=== PATIENT | female | born 1930 | race Caucasian/White ===

== ENCOUNTER → 2016-07-10 | Outpatient (CLI) | payer BC ==
[~2016-07-10] MED LIST: ASCO500T16 PO; CALCTAB5 PO; CHOL1CAP57 PO; GOUT MED; LISI40TA PO; LSN40 PO; OMEGCAP2 PO
== END | disposition home or self-care (01) ==
LOC: C.PAPS 14:36
PROVIDERS: ATTEND Obstetrics & Gynecology
DX: Z12.4 Encounter for screening for malignant neoplasm of cervix (principal); R19.00 Intra-abdominal and pelvic swelling, mass and lump, unspecified site; Z85.43 Personal history of malignant neoplasm of ovary

== ENCOUNTER → 2016-07-10 | Outpatient (CLI) | payer BC | END | disposition home or self-care (01) | LOC: C.LAB1850 12:10 | PROVIDERS: ATTEND Obstetrics & Gynecology | DX: Z12.4 Encounter for screening for malignant neoplasm of cervix (principal); R19.00 Intra-abdominal and pelvic swelling, mass and lump, unspecified site ==

== ENCOUNTER → 2016-07-18 | Outpatient (CLI) | payer BC ==
--- NOTE | 2016-07-18 14:01 | DIAGNOSTIC IMAGING REPORT ---
PELVIC ULTRASOUND, TRANSABDOMINAL HISTORY: R19.00 Pelvic mass in femaleh/o ovarian cancer new pelvic mass, september COMPARISON: Abdomen and pelvis CT 12/06/2012. FINDINGS: Transabdominal scanning demonstrates a large solid and cystic pelvic mass. This measures approximately 18 x 12 x 10 cm. No significant fluid identified within the pelvis. IMPRESSION: An 18 x 12 x 10 cm solid and cystic mass within the pelvis. This is highly suspicious for recurrent ovarian malignancy. Dedicated CT can be performed for further evaluation. Electronically signed by: Rojas Walker M.D. 07/18/2016 1:59 PM Dictated Date/Time: 07/18/2016 1:57 PM
== END | disposition home or self-care (01) ==
LOC: C.ULTRBC 13:02
PROVIDERS: ATTEND Obstetrics & Gynecology
DX: R19.00 Intra-abdominal and pelvic swelling, mass and lump, unspecified site (principal)

== ENCOUNTER → 2016-08-03 | Outpatient (CLI) | payer BC ==
[2016-08-03 14:25] LABS: BLOOD UREA NITROGEN 19 mg/dl (7-18); CREATININE 0.99 mg/dl (0.60-1.20)
== END ==
LOC: C.LAB 13:45
PROVIDERS: ATTEND Obstetrics & Gynecology
DX: R19.00 Intra-abdominal and pelvic swelling, mass and lump, unspecified site (principal)

== ENCOUNTER → 2016-08-04 | Outpatient (CLI) | payer BC ==
[~2016-08-04] MED LIST changes: +OPTIRAY 320 IV PRN
--- NOTE | 2016-08-04 07:31 | DIAGNOSTIC IMAGING REPORT ---
ABDOMEN AND PELVIS CT WITH IV AND ORAL CONTRAST CT DOSE: 960.09 mGy.cm HISTORY: Mass ABD/PELVIC MASS SWELLING TECHNIQUE: Multiaxial CT images of the abdomen and pelvis were performed following the use of intravenous and oral contrast. COMPARISON STUDY: 12/06/2012 FINDINGS: Lung bases show minimal dependent platelike basilar atelectatic change. Mild cirrhotic appearance to the liver is again noted. Gallstone within the gallbladder neck is unchanged. Spleen is uniform. Moderate cortical scarring of the kidneys is present was several small subcentimeter cortical cysts. There is no evidence for renal hydronephrosis. Septated cystic lesion mid pancreatic body is present. This measures 2 cm overall maximum dimension. No dilatation of pancreatic duct. Multi locular pelvic mass. There are 3 medially adjacent components. The right lateral component shows no internal partially cystic matrix. Has a maximum dimension of 8.9 cm. Central component within the low pelvic region has a maximum dimension of 8.5 cm. A left lateral component measures 9.1 x 6.0 cm. An ovarian neoplastic and metastatic process must be considered. There is no evidence for bowel obstructive change. There is no free fluid within the pelvic cul-de-sac. Bladder is midline. IMPRESSION: 1. Multicystic complex lesions of the pelvis and at least 3 independent dominant cystic nodules. 2. Ovarian cystic neoplastic process and/or metastatic process must be the diagnosis of exclusion. 3. Gallstone within the gallbladder neck unchanged. 4. Mild cirrhotic changes of the liver. 5. Fixed hiatal/hernia Electronically signed by: Eugene Castellon M.D. 08/04/2016 7:29 AM Dictated Date/Time: 08/04/2016 7:14 AM
--- NOTE | 2016-08-04 07:34 | DIAGNOSTIC IMAGING REPORT ---
CT SCAN OF THE CHEST WITH IV CONTRAST CLINICAL HISTORY: Pelvic mass. Metastatic survey. COMPARISON STUDY: Chest x-ray dated 06/28/2015. TECHNIQUE: Following the IV administration of 92 cc of Optiray 320, CT scan of the thorax was performed from the thoracic inlet to the upper abdomen. Images are reviewed in the axial, sagittal, and coronal planes. IV contrast was administered without complication. FINDINGS: Thyroid: Imaged portions of the thyroid gland are normal in size and attenuation. Thoracic aorta: The thoracic aorta is normal in caliber and demonstrates standard 3-vessel arch anatomy. No dissection is seen. Pulmonary vasculature: The pulmonary trunk is normal in caliber. There are no filling defects identified in the central pulmonary vessels to indicate pulmonary embolus. Note that this examination was not protocoled for evaluation of the pulmonary arteries. Heart: The heart is normal in size and configuration, and without pericardial effusion. There are coronary artery calcifications. Lungs and pleural spaces: A fat-containing Bochdalek hernia is noted at the left lung base. There is no airspace consolidation or pleural effusion. Linear atelectasis versus scarring is noted at both lung bases. The trachea and central airways are clear. Mediastinum: There is no mediastinal lymphadenopathy. There is ill-defined mediastinal soft tissue thickening, greatest in the AP window. This is also seen around the origin of the innominate artery. Gina: Clear. Axillae: There is no axillary lymphadenopathy. Upper abdomen: There is a large hiatal hernia, with the majority of the stomach located in the thoracic cavity. There are at least 4 ovoid small cystic lesions identified in the visualized pancreas measuring up to 1.7 cm. These are typical in appearance for small sidebranch IPMN's. Subcentimeter hypodensities in the upper pole of left kidney likely represent cysts but are too small for definitive characterization. A large calcified gallstone is partially imaged. Skeletal structures: The skeletal structures are osteopenic. Degenerative change is noted throughout the thoracic spine and in the shoulders. No lytic or blastic bony lesions are seen. IMPRESSION: 1. There is no evidence of intrathoracic metastatic disease. 2. No airspace consolidation or pleural effusion is identified. 3. Large hiatal hernia. 4. There is no mediastinal lymphadenopathy. Ill-defined soft tissue within the mediastinum is nonspecific and may represent mediastinal fibrosis. 5. Cholelithiasis. 6. Numerous ovoid cystic lesions in the partially imaged pancreas are typical in appearance for sidebranch IPMN's. 7. Additional changes as above. Electronically signed by: Haile Faye M.D. 08/04/2016 7:32 AM Dictated Date/Time: 08/04/2016 7:24 AM
== END | disposition home or self-care (01) ==
LOC: C.CTS 06:24
PROVIDERS: ATTEND Obstetrics & Gynecology
DX: R19.00 Intra-abdominal and pelvic swelling, mass and lump, unspecified site (principal); R93.5 Abnormal findings on diagnostic imaging of other abdominal regions, including retroperitoneum; K80.20 Calculus of gallbladder without cholecystitis without obstruction; K44.9 Diaphragmatic hernia without obstruction or gangrene

== ENCOUNTER → 2017-04-02 | Outpatient (CLI) | payer BC ==
[~2017-04-02] MED LIST changes: -GOUT MED; -LSN40 PO
--- NOTE | 2017-04-02 12:51 | DIAGNOSTIC IMAGING REPORT ---
ABD/PELVIS IV AND ORAL CONT CT DOSE: 1023.74 mGy.cm HISTORY: Ovarian carcinoma TECHNIQUE: Multiaxial CT images of the abdomen and pelvis were performed following the use of intravenous and oral contrast. A dose lowering technique was utilized adhering to the principles of ALARA. COMPARISON STUDY: 08/04/2016 FINDINGS: Scattered bibasilar atelectatic change. Fixed lateral hernia. Interval development of a small amount of upper abdominal ascites surrounding both liver as well as spleen. Trace amount of ascites within the mid mesentery. Gallstone within the gallbladder neck similar compared to the prior study. Small right renal cyst. Mild cortical scarring of the kidneys bilaterally. No evidence for hydronephrosis. Mild cirrhotic changes of the liver are stable. Trace amount of ascites within the paracolic gutters bilaterally. Moderate pelvic ascites increased from the prior study. 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 The complex lesions within the low soft tissue pelvis are moderately improved in volume. There is a bilobed mass of the posterior central pelvis having a maximum dimension of 8.6 cm. To lower central pelvis contains a 8.5 cm complex partially solid lesion similar in size to the prior study. The solid component, however has increased. A left lateral cystic component appears to have resolved. Bladder is midline. Bowel pattern is nonobstructive. IMPRESSION: 1. Mixed findings compared to the prior study. 2. Slight improvement in the complex partially cystic lesions of the soft tissue pelvis with a mild decrease in overall volume of the 3 lesions described previously. 3. Interval development of mild abdominal and pelvic ascites. 4. 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 5. Stable findings of early hepatic cirrhosis. 6. Gallstone 7. Fixed hiatal Hernia unchanged The above report was generated using voice recognition software. It may contain grammatical, syntax or spelling errors. Electronically signed by: Eugene Castellon M.D. 04/02/2017 12:50 PM Dictated Date/Time: 04/02/2017 12:42 PM
--- NOTE | 2017-04-02 13:23 | DIAGNOSTIC IMAGING REPORT ---
CHEST CT WITH CONTRAST CT DOSE: HISTORY: Ovarian cancer. TECHNIQUE: Multiaxial CT images of the chest were performed following the intravenous administration of contrast. A dose lowering technique was utilized adhering to the principles of ALARA. COMPARISON: Chest CT 08/04/2016. FINDINGS: Interval development of a small amount of upper abdominal ascites. There appears to be subtle omental nodularity within the left upper quadrant. Therefore, this is consistent with peritoneal carcinomatosis. Large hiatus hernia is again noted. No suspicious pulmonary nodules. No pleural effusions. No pneumothorax. The central airways are patent. A few linear densities within the lung bases likely represent atelectasis or scarring. Stable nonspecific mediastinal soft tissue thickening most pronounced at the AP window. No hilar lymphadenopathy. The central pulmonary arteries are patent. Normal caliber thoracic aorta. The heart is normal in size. No suspicious lytic or blastic osseous lesions. Pancreatic cystic lesions are again noted. Cholelithiasis. IMPRESSION: 1. Interval development of a small amount of upper abdominal ascites with a few subtle areas of soft tissue nodularity within the omentum. Therefore, this is highly suspicious for peritoneal carcinomatosis. 2. No change in the soft tissue thickening within the mediastinum. This could represent mediastinal fibrosis given the stability. 3. No definite evidence for metastatic disease within the chest. 4. Large hiatal hernia. Electronically signed by: Rojas Walker M.D. 04/02/2017 1:21 PM Dictated Date/Time: 04/02/2017 1:09 PM
== END | disposition home or self-care (01) ==
LOC: C.CTS 11:18
PROVIDERS: ATTEND Internal Medicine Hematology & Oncology
DX: C56.1 Malignant neoplasm of right ovary (principal); R18.8 Other ascites; K74.60 Unspecified cirrhosis of liver; K80.20 Calculus of gallbladder without cholecystitis without obstruction

== ENCOUNTER → 2017-04-17 | Outpatient (CLI) | payer BC ==
[~2017-04-17] MED LIST changes: +CALC600T9 PO; -CALCTAB5 PO; +COLC0.6T54 PO; +HYDR-5688 PO; -OPTIRAY 320 IV PRN
[2017-04-17 10:45] LABS: BASO % 0.3 %; BASO ABS # 0.02 K/uL (0-0.2); COMPLETE YES; HEMATOCRIT 34.4 % (37-47); IG% 0.3 %; LYMPH % 29.3 %; LYMPH ABS # 1.79 K/uL (1.2-3.4); MEAN CELL VOLUME 103.6 fL (80-100); MEAN CORPUSCULAR HGB CONC 32.8 g/dl (32-36); MEAN PLATELET VOLUME 9.4 fL (7.4-10.4); MONO % 6.1 %; PLATELET COUNT 132 K/uL (130-400); RED BLOOD COUNT 3.32 M/uL (4.2-5.4)
[2017-04-17 11:13] LABS: ALT/SGPT 18 U/L (12-78); AST/SGOT 14 U/L (15-37); BLOOD UREA NITROGEN 26 mg/dl (7-18); BUN/CREATININE RATIO 29.8 (10-20); CALCIUM 9.8 mg/dl (8.5-10.1); CARBON DIOXIDE 29 mmol/L (21-32); CHLORIDE 103 mmol/L (98-107); CREATININE 0.87 mg/dl (0.60-1.20); GLUCOSE 160 mg/dl (70-99); POTASSIUM 3.8 mmol/L (3.5-5.1); SODIUM 137 mmol/L (136-145)
[2017-04-17 11:15] LABS: ALB/GLOB RATIO 0.9 (0.9-2); ALKALINE PHOSPHATASE 65 U/L (45-117)
== END | disposition home or self-care (01) ==
LOC: C.LAB 10:24
PROVIDERS: ATTEND Internal Medicine Hematology & Oncology
DX: C56.1 Malignant neoplasm of right ovary (principal)

== ENCOUNTER 2017-04-20 05:26 | Day surgery (SDC) | payer BC ==
[2017-04-15 10:36] VITALS: BMI 29.0
[~2017-04-20] VITALS: Ht 172.7 cm; Wt 84.1 kg
[~2017-04-20 05:26] MED LIST changes: -HYDR-5688 PO
[2017-04-20 05:49] VITALS: BP 147/63; PULSE 81; TEMP 36.6; O2SAT 96; Ht 172.7 cm; Wt 84.1 kg
[2017-04-20] MEDS ORDERED: CEFAZOLIN 2000MG IV PUSH 10 ML IV SCH (06:00)
[2017-04-20] MEDS ORDERED: LACTATED RINGER'S 1000ML 1,000 ML IV SCH (06:00)
[2017-04-20] MEDS ORDERED: HEPARIN SOD (PORCINE) 1000 UNIT/ML 10 ML VIAL ONE (06:30)
[2017-04-20] MEDS ORDERED: CEFAZOLIN SOD 1 GM VIAL ONE (06:30)
[2017-04-20] MEDS ORDERED: LIDOCAINE HCL 1% 20 ML VIAL ONE (06:30)
[2017-04-20] MEDS ORDERED: THROMBIN FOR SOLN 20000 UNIT KIT ONE (06:30)
[2017-04-20] MEDS ORDERED: MIDAZOLAM HCL 1 MG/ML 2ML VIAL ONE (06:51)
[2017-04-20] MEDS ORDERED: FENTANYL CITRATE INJ 50 MCG/1 ML 2 ML VIAL ONE (06:51)
[2017-04-20] MEDS ORDERED: HYDR-5688 PO (07:12)
--- NOTE | 2017-04-20 07:14 | Discharge Instructions ---
Discharge Instructions Date of Service Apr 20, 2017. 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 Post Anesthesia Instructions: If you have had General Anesthesia or IV Sedation: * Do not drive today. * Resume driving when surgeon permits. * Do not make important decisions or sign legal documents today. * Call surgeon for: 1. Temperature elevations greater than 101 degrees F. 2. Uncontrollable pain. 3. Excessive bleeding. 4. Persistent nausea and vomiting. 5. Medication intolerance (nausea, vomiting or rash). * For nausea and vomiting use only clear liquids such as: tea, soda, bouillon until nausea subsides, then gradually increase diet as tolerated. * If you have any concerns or questions, call your surgeon's office. If physician is unavailable and it is an emergency, call 911 or go to the nearest emergency room. . Instructions / Follow-Up Instructions / Follow-Up Dr. Roque's office in 2 weeks for suture removal Diet Recommendations Recommended Home Diet: no limitations Pending Studies Studies pending at discharge: no Medical Emergencies . Who to Call and When: Medical Emergencies: If at any time you feel your situation is an emergency, please call 911 immediately. . Non-Emergent Contact Non-Emergency issues call your: Surgeon Call Non-Emergent contact if: you have a fever, temperature is above 101.5, your pain is not controlled, wound has increased redness, you have any medication questions . . "Provider Documentation" section prepared by Bjorn Frias. .
[2017-04-20] MEDS ORDERED: PROPOFOL IV EMULSION 10 MG/ML 20 ML VIAL IV ONE (07:34)
[2017-04-20] MEDS ORDERED: LIDOCAINE HCL 2% 2 ML VIAL (20MG/ML) ONE (07:34)
[2017-04-20] MEDS ORDERED: HYDROCODONE/ACETAMOPHEN 5/325MG TAB PO PRN ×2 (08:00)
--- NOTE | 2017-04-20 08:04 | [facility] Operative Report ---
Operative Report Operative Date Apr 20, 2017. Pre-Operative Diagnosis Ovarian Cancer Post-Operative Diagnosis Same as preop Procedure(s) Performed Infusaport Insertion Left Cephalic Vein Surgeon Dr. Roque Estimated Blood Loss 5 ml Findings placed via Lt cephalic vein Specimens None per Surgeon Anesthesia local/ sedation Complication(s) None Disposition Recovery Room / PACU I attest to the content of the Intraoperative Record and any orders documented therein. Any exceptions are noted below.
--- NOTE | 2017-04-20 08:14 | OPERATIVE REPORT ---
DATE OF OPERATION: 04/20/2017 NAME OF OPERATION: Access port placement. PREOPERATIVE DIAGNOSIS: History of ovarian cancer. POSTOPERATIVE DIAGNOSIS: Same. STAFF SURGEON: Dr. Roque. ANESTHESIA: 1% plain lidocaine with sedation. PROCEDURE: The patient was brought in the operating room and placed on the operating table in supine position. I used a SonoSite to identify the internal jugular vein. Her chest was then prepped and draped in usual fashion as well as her neck. Using 1% plain lidocaine, skin and subcutaneous tissue over the left deltopectoral groove were anesthetized. Incision made carrying dissection down and identifying a large cephalic vein which was ligated distally using 2-0 silk suture. The vein was then opened and under fluoroscopy a catheter passed into the superior vena cava and then secured using 2-0 silk suture. The catheter was aspirated and flushed with heparinized solution. A pocket was fashioned in the chest wall and then the port attached to the catheter and placed into the pocket and secured to the pectoralis major muscle using 3-0 Prolene suture. The port was aspirated and flushed with heparinized solution. Then the tissue reapproximated in the subcutaneous area using 2-0 chromic catgut suture then the skin reapproximated using 4-0 nylon suture. The patient was transferred to recovery room in stable condition. I attest to the content of the Intraoperative Record and any orders documented therein. Any exception s are noted below.
[2017-04-20] MEDS ORDERED: ONDANSETRON INJ 2 MG/ML 2 ML VIAL IV PRN (08:15)
[2017-04-20] MEDS ORDERED: ATROPINE SULFATE 0.1 MG/ML 5ML SYR IV PRN (08:15)
[2017-04-20] MEDS ORDERED: FENTANYL CITRATE INJ 50 MCG/1 ML 2 ML VIAL IV PRN (08:15)
[2017-04-20] MEDS ORDERED: EpHEDrine SULFATE INJ 50 MG/ML AMP IV PRN (08:15)
--- NOTE | 2017-04-20 08:15 | OPERATIVE REPORT ---
DATE OF OPERATION: 04/20/2017 NAME OF PROCEDURE: Access port placement with fluoroscopy. PROCEDURE: The patient was in the operating room. She underwent port placement and during the procedure, we used fluoroscopy to place the catheter in an appropriate position in the superior vena cava. The operation itself was approximately 30 minutes in length. I attest to the content of the Intraoperative Record and any orders documented therein. Any exception s are noted below.
--- NOTE | 2017-04-20 08:20 | Anesthesiology Progress Note ---
Anesthesia Post Op Note Date & Time Apr 20, 2017 at 08:20 Vital Signs Pain Intensity: 0 Vital Signs Past 12 Hours Date Time Temp Pulse Resp B/P (MAP) Pulse Ox O2 Delivery O2 Flow Rate FiO2 04/20/17 08:10 68 17 108/59 99 Nasal Cannula 2 04/20/17 08:01 36.1 77 20 116/64 99 Nasal Cannula 2 04/20/17 05:49 36.6 81 18 147/63 (91) 96 Room Air Notes Mental Status: alert / awake / arousable, participated in evaluation Pt Amnestic to Procedure: Yes Nausea / Vomiting: adequately controlled Pain: adequately controlled Airway Patency, RR, SpO2: stable & adequate BP & HR: stable & adequate Hydration State: stable & adequate Anesthetic Complications: no major complications apparent
--- NOTE | 2017-04-20 08:45 | DIAGNOSTIC IMAGING REPORT ---
SINGLE VIEW CHEST CLINICAL HISTORY: Infusion port placement. Ovarian cancer. FINDINGS: An AP, portable, upright chest radiograph is compared to study dated 06/28/15 and correlated with chest CT dated 04/02/2017. The examination is degraded by portable technique and patient rotation. A left subclavian central venous infusion port has been placed. The tip projects over the superior vena cava. The cardiomediastinal silhouette is unremarkable. A hiatal hernia is identified. There are left basilar airspace opacities. No large pleural effusion or pneumothorax is seen. The skeletal structures are osteopenic. Degenerative change is seen throughout the thoracic spine. IMPRESSION: 1. A left subclavian central venous infusion port has been placed. No pneumothorax is identified post procedure. 2. There are left basilar opacities. This could represent atelectasis versus an infectious/inflammatory pneumonitis. Clinical correlation will be required. 3. Hiatal hernia. Electronically signed by: Haile Faye M.D. 04/20/2017 8:43 AM Dictated Date/Time: 04/20/2017 8:22 AM
[2017-04-20 09:05] VITALS: BP 111/58; PULSE 68; TEMP 36.8; O2SAT 95
[2017-04-20 09:35] VITALS: BP 115/55; PULSE 73; TEMP 36.6; O2SAT 97
== END 2017-04-20 09:50 | disposition home or self-care (01) ==
LOC: C.ACU 05:26
PROVIDERS: ATTEND Surgery
DX: C56.9 Malignant neoplasm of unspecified ovary (principal); I10 Essential (primary) hypertension; Z98.890 Other specified postprocedural states; Z82.49 Family history of ischemic heart disease and other diseases of the circulatory system; Z79.899 Other long term (current) drug therapy; Z90.89 Acquired absence of other organs; Z90.710 Acquired absence of both cervix and uterus

== ENCOUNTER → 2017-07-21 | Outpatient (CLI) | payer BC ==
[~2017-07-21] MED LIST changes: +HYDR-5688 PO
--- NOTE | 2017-07-21 13:20 | DIAGNOSTIC IMAGING REPORT ---
CHEST CT WITH CONTRAST CT DOSE: 340.60 mGy.cm HISTORY: Follow-up study in a patient with history of ovarian cancer. OVARIAN CA TECHNIQUE: Multiaxial CT images of the chest were performed following the intravenous administration of contrast. A dose lowering technique was utilized adhering to the principles of ALARA. COMPARISON: CT chest 04/02/2017, CT abdomen and pelvis of same day. FINDINGS: Mild heterogeneity of the thyroid without focal nodule identified. Unchanged soft tissue containing with ill-defined stranding again seen within the mediastinum, unchanged suggesting mediastinal fibrosis with scattered calcifications. No new pathologic adenopathy about the chest identified. Heart is normal in size without pericardial effusion. Coronary arterial disease. Thoracic aorta is normal in both course and caliber without dissection or aneurysm. The opacified pulmonary arterial tree is unremarkable. Trace amount of pleural fluid is noted within the right hemithorax. No large pleural effusion or pneumothorax identified. Moderate left Bochdalek hernia. Linear subsegmental opacities of the bilateral lung bases are redemonstrated suggesting areas of pleural-parenchymal scarring/atelectasis. Mild nodularity adjacent to the right hemidiaphragm is also unchanged measuring up to 7 mm. No new suspicious pulmonary nodules or masses identified. No lobar airspace consolidation to suggest pneumonia. Central airways are patent. Mild amount of upper abdominal ascites redemonstrated. Minimal soft tissue nodularity of the left upper quadrant of the abdomen is again seen suspicious for possible omental carcinomatosis. Partially imaged cystic lesions of the pancreas are again seen measuring up to 2.3 cm. Large hiatal hernia. There is a least moderate generalized pancreatic atrophy. Soft tissues are unremarkable with exception of multiple breast calcifications. The bones of the chest appear to be moderately demineralized. No suspicious lytic or blastic bony lesions are identified. Multilevel endplate spurring and facet arthropathy with intervertebral disc space narrowing. IMPRESSION: 1. No acute intrathoracic abnormality identified. No evidence of new thoracic metastatic disease or pathologic adenopathy. 2. Unchanged mild soft tissue thickening and stranding of the mediastinum suggesting mediastinal fibrosis. 3. Stable findings of the upper abdomen as above. Please refer to the CT abdomen and pelvis study of same day for further details. 4. No evidence of osseous metastatic disease. Electronically signed by: Andre Paniagua M.D. 07/21/2017 1:19 PM Dictated Date/Time: 07/21/2017 1:08 PM
--- NOTE | 2017-07-21 13:24 | DIAGNOSTIC IMAGING REPORT ---
ABD/PELVIS IV AND ORAL CONT CLINICAL HISTORY: 86 years-old Female presenting with OVARIAN CA. TECHNIQUE: Multidetector CT of the abdomen and pelvis was performed after the administration of oral and intravenous contrast. IV contrast: 94 mL of Optiray 320. A dose lowering technique was used consistent with the principles of ALARA (as low as reasonably achievable). COMPARISON: 04/02/2017. CT DOSE (mGy.cm): The estimated cumulative dose is 613.28 mGy.cm. 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 Lung bases: Bandlike opacities in the lung bases likely atelectasis or scarring. Diaphragmatic eventration noted on the right. No focal nodule at the lung bases. Bilateral fat-containing Bochdalek hernias. Normal heart size. Trace right pleural effusion, which may be new from prior. No pericardial effusion. Liver: Normal morphology. No liver lesion. Patent hepatic vasculature. Biliary: No intrahepatic or extrahepatic biliary ductal dilatation. Gallbladder contains gallstones. Pancreas: Numerous small cystic lesions scattered throughout the pancreatic parenchyma. Subtle evidence suggesting increased dilatation of the pancreatic duct in the pancreatic tail (series 3 image 92). The appearance of the pancreas is overall similar to prior exam. Spleen: Normal. Adrenal glands: Nodular thickening of the left adrenal gland, nonspecific. Right adrenal gland normal. This appearance is unchanged from prior. Kidneys and ureters: Several hypodensities scattered throughout the kidneys, many too small to characterize but likely cysts. No hydronephrosis. Subtle evidence of urothelial thickening bilaterally. No nephrolithiasis. Ureters grossly normal. Bladder: Incompletely evaluated secondary to underdistention. Pelvic organs: Atrophic uterus. Complex partially cystic, partially solid right adnexal mass now measures 8.3 x 7.7 cm. A prominent lobulation exophytically extending to the superior midline pelvis now measures 5.0 x 3.4 cm. Previously the dominant portion of the mass measured 7.9 x 7.1 cm and the smaller exophytic component measured 5.4 x 3.3 cm, when remeasured at a comparable level. A normal left ovary is not clearly visualized. Bowel: The sigmoid colon is displaced and abutted by the right adnexal mass, which appears adherent to the serosa. No complete bowel obstruction. Moderate stool burden in the more proximal colon could suggest partial obstruction. Moderate hiatal hernia. Small bowel within normal limits. Peritoneal cavity: Persistent small volume of abdominal pelvic ascites. Ascites may be loculated in the pelvis with suggestion of peritoneal thickening. Infiltration of the omentum without focal soft tissue nodularity. No nodularity of the small bowel mesentery. Lymph nodes: No enlarged lymph nodes in the abdomen or pelvis. Vasculature: Atherosclerosis of the normal caliber abdominal aorta. IVC patent. The IVC is flattened suggesting a hypovolemic state. Abdominal wall: Diastasis of the rectus abdominis. Musculoskeletal: Degenerative changes of the spine. IMPRESSION: 1. Redemonstration of the complex partially cystic, partially solid right adnexal mass, consistent with the given history of ovarian cancer. This has minimally progressed in size. Persistent abdominal pelvic ascites and peritoneal involvement suggested by peritoneal thickening. No caitlin soft tissue nodularity within the mesentery or omentum, although the omentum is infiltrated. Micrometastases in the omentum is difficult to exclude. 2. No evidence of lymphadenopathy or solid visceral involvement. Electronically signed by: Dhruv Mccall M.D. 07/21/2017 1:23 PM Dictated Date/Time: 07/21/2017 1:11 PM
== END | disposition home or self-care (01) ==
LOC: C.CTS 12:14
PROVIDERS: ATTEND Internal Medicine Hematology & Oncology
DX: C56.1 Malignant neoplasm of right ovary (principal)

== ENCOUNTER → 2017-09-25 | Outpatient (CLI) | payer BC ==
[~2017-09-25] MED LIST changes: +OPTIRAY 320 IV PRN
--- NOTE | 2017-09-25 16:11 | DIAGNOSTIC IMAGING REPORT ---
CHEST CT WITH CONTRAST HISTORY: Follow-up study in a patient with history of ovarian carcinoma X TECHNIQUE: Multiaxial CT images of the chest were performed following the intravenous administration of contrast. A dose lowering technique was utilized adhering to the principles of ALARA. COMPARISON: CT chest 07/21/2017, CT abdomen and pelvis of same day. FINDINGS: Heterogeneous thyroid without dominant nodule. Unchanged ill-defined stranding about the mediastinum suggesting mediastinal fibrosis with a few scattered calcified lymph nodes suggesting prior granulomatous disease. No enlarged lymph nodes by CT size criteria identified. Heart is normal in size without pericardial effusion. Coronary arterial calcifications are noted. The thoracic aorta is normal in both course and caliber with moderate mixed plaquing. There is no aneurysm or dissection. The imaged great vessels appear patent. The pulmonary arterial tree appears unremarkable as well. No pneumothorax or pleural effusion. 8 mm pleural-based nodule right lower lobe is fatty attenuating suggesting subpleural fat nicely seen on image 248 series 4. Linear subsegmental bibasilar opacities suggest atelectasis/scarring. No suspicious pulmonary nodules identified to suggest metastatic disease. No lobar airspace consolidation to suggest pneumonia. Central airways are patent. Small volume upper abdominal ascites redemonstrated. Mild omental nodularity of the left upper quadrant of the abdomen redemonstrated. At least moderate pancreatic atrophy. Cystic lesions of the pancreas are again seen measuring up to 2.2 cm. Large hiatal hernia with adjacent ascites tracking into the hernia sac. Breast calcifications are noted. Soft tissues are unremarkable. Degenerative changes of the spine without suspicious lytic or blastic bony lesions identified. IMPRESSION: 1. No evidence of intrathoracic metastatic disease or pathologic adenopathy. 2. 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 3. No evidence of osseous metastatic disease. 4. Stable findings of the upper abdomen. Please see separately dictated CT abdomen and pelvis study of same day for further details. Electronically signed by: Andre Paniagua M.D. 09/25/2017 4:10 PM Dictated Date/Time: 09/25/2017 4:01 PM
--- NOTE | 2017-09-25 16:15 | DIAGNOSTIC IMAGING REPORT ---
ABD/PELVIS IV AND ORAL CONT CLINICAL HISTORY: 87 years-old Female presenting with ovarian cancer. TECHNIQUE: Multidetector CT of the abdomen and pelvis was performed after the administration of oral and intravenous contrast. IV contrast: 119 mL of Optiray 320. A dose lowering technique was used consistent with the principles of ALARA (as low as reasonably achievable). COMPARISON: 07/21/2017. CT DOSE (mGy.cm): The estimated cumulative dose is 793.70 mGy.cm. FINDINGS: Supervisor Extruding Department topogram: Unremarkable. Lung bases: Nodular and bandlike opacity in the right middle lobe similar to prior exam and likely scarring or atelectasis. Diaphragmatic eventration noted on the right. Left fat-containing Bochdalek hernia. Normal heart size. No pleural effusion. Trace pericardial effusion. Liver: Normal morphology. No liver lesion. Patent hepatic vasculature. Biliary: No intrahepatic or extrahepatic biliary ductal dilatation. Gallbladder contains gallstones. Pancreas: Numerous cystic lesions scattered throughout the pancreatic parenchyma measuring up to 1.5 cm. Subtle evidence suggesting increased dilatation of the pancreatic duct in the pancreatic tail (series 3 image 97). The appearance of the pancreas is overall similar to prior exam. Spleen: Normal. Adrenal glands: Normal. Kidneys and ureters: Several hypodensities scattered throughout the kidneys, many too small to characterize but likely cysts. No hydronephrosis. Subtle evidence of urothelial thickening bilaterally. No nephrolithiasis. Ureters grossly normal. Bladder: Incompletely evaluated secondary to underdistention. Pelvic organs: Atrophic uterus. Complex partially cystic, partially solid right adnexal mass now measures 9.0 x 7.6 cm, previously 8.3 x 7.7 cm. A prominent lobulation exophytically extending to the superior midline pelvis now measures 6.2 x 4.1 cm, previously 5.0 x 3.4 cm. A normal left ovary is not clearly visualized. Bowel: The sigmoid colon is displaced and abutted by the right adnexal mass, which appears adherent to the serosa. No complete bowel obstruction. Moderate stool burden in the more proximal colon could suggest partial obstruction. Moderate hiatal hernia. Small bowel within normal limits. Peritoneal cavity: Persistent small volume of abdominal pelvic ascites. Ascites may be loculated in the pelvis with suggestion of peritoneal thickening. Infiltration of the omentum without focal soft tissue nodularity. No nodularity of the small bowel mesentery. Lymph nodes: No enlarged lymph nodes in the abdomen or pelvis. Vasculature: Atherosclerosis of the normal caliber abdominal aorta. IVC patent. The IVC is flattened suggesting a hypovolemic state. Abdominal wall: Atrophy of the rectus abdominis musculature. Musculoskeletal: Degenerative changes of the spine. IMPRESSION: 1. Slight interval increase in size of the complex partially cystic, partially solid bilobed right adnexal mass consistent with the given history of ovarian cancer. Similar small amount of abdominopelvic ascites with peritoneal thickening and omental infiltration suggesting peritoneal involvement. No caitlin soft tissue nodularity in the peritoneum. 2. No evidence of lymphadenopathy or solid visceral involvement. Electronically signed by: Dhruv Mccall M.D. 09/25/2017 4:13 PM Dictated Date/Time: 09/25/2017 4:03 PM
== END | disposition home or self-care (01) ==
LOC: C.CTS 15:09
PROVIDERS: ATTEND Internal Medicine Hematology & Oncology
DX: C56.1 Malignant neoplasm of right ovary (principal)

== ENCOUNTER → 2017-10-05 | Outpatient (CLI) | payer BC ==
[~2017-10-05] MED LIST changes: -OPTIRAY 320 IV PRN
[2017-10-05 16:13] LABS: BASO % 0.3 %; BASO ABS # 0.02 K/uL (0-0.2); EOS ABS # 0.25 K/uL (0-0.5); HEMATOCRIT 36.1 % (37-47); HEMOGLOBIN 12.1 g/dL (12.0-16.0); IG# 0.03 K/uL (0.00-0.02); LYMPH % 31.5 %; LYMPH ABS # 1.99 K/uL (1.2-3.4); MEAN CELL VOLUME 96.3 fL (80-100); MEAN CORPUSCULAR HEMOGLOBIN 32.3 pg (25-34); MEAN CORPUSCULAR HGB CONC 33.5 g/dl (32-36); MEAN PLATELET VOLUME 9.6 fL (7.4-10.4); MONO % 9.2 %; MONO ABS # 0.58 K/uL (0.11-0.59); NEUT % 54.5 %; NEUT ABS # 3.45 K/uL (1.4-6.5); PLATELET COUNT 169 K/uL (130-400); RED CELL DISTRIBUTION WIDTH CV 13.8 % (11.5-14.5); RED CELL DISTRIBUTION WIDTH SD 49.3 fL (36.4-46.3); WHITE BLOOD COUNT 6.32 K/uL (4.8-10.8)
[2017-10-05 16:37] LABS: ALBUMIN 3.1 gm/dl (3.4-5.0); ALT/SGPT 18 U/L (12-78); AST/SGOT 18 U/L (15-37); BLOOD UREA NITROGEN 24 mg/dl (7-18); CALCIUM 8.7 mg/dl (8.5-10.1); CARBON DIOXIDE 28 mmol/L (21-32); CREATININE 0.95 mg/dl (0.60-1.20); GLUCOSE 92 mg/dl (70-99); SODIUM 143 mmol/L (136-145)
[2017-10-05 16:39] LABS: ALKALINE PHOSPHATASE 71 U/L (45-117); TOTAL PROTEIN 6.6 gm/dl (6.4-8.2)
== END | disposition home or self-care (01) ==
LOC: C.LABCCP 15:30
PROVIDERS: ATTEND Internal Medicine Hematology & Oncology
DX: C56.1 Malignant neoplasm of right ovary (principal)

== ENCOUNTER 2018-12-14 19:55 | Inpatient (IN) ==
[2018-12-14] MEDS ORDERED: SODIUM CHLORIDE 0.9% 1000ML 1,000 ML IV ONE ×2 (20:29→22:11)
[2018-12-14] MEDS ORDERED: ACETAMINOPHEN 325 MG TAB PO STA (20:29)
--- NOTE | 2018-12-14 20:57 | XRay Report ---
XR chest 1V portable CLINICAL HISTORY: Sepsis COMPARISON STUDY: 10/28/2017 FINDINGS: The heart is enlarged. There is a left subclavian A-Port catheter present. There is mild el evation of interstitium indicating possible mild pulmonary vascular congestion. There are bibasilar o pacities, atelectatic versus infectious/inflammatory. The right lower lung zone opacities have a some what nodular configuration, and therefore follow-up radiography is recommended to exclude a parenchym al nodule. There is a hiatal hernia.[ IMPRESSION: 1. Hiatal hernia 2. Possible mild pulmonary vascular congestion 3. Bibasilar opacities, atelectatic versus infectious/inflammatory. Clinical and radiographic follow- up is recommended Electronically signed by: Suman Hall M.D. 12/14/2018 8:55 PM
[2018-12-14 21:08] LABS: Basophils # (auto) 0.01 K/uL (0-0.2); Basophils % (auto) 0.1 %; Eosinophils # (auto) 0.02 K/uL (0-0.5); Eosinophils % (auto) 0.2 %; Hematocrit (blood only) 26.6 % (37-47); Hemoglobin 9.1 g/dL (12.0-16.0); Immature Granulocytes # (auto) 0.04 K/uL (0.00-0.02); Immature Granulocytes % (auto) 0.4 %; Lymphocytes # (auto) 0.26 K/uL (1.2-3.4); Lymphocytes % (auto) 2.6 %; Mean Corpuscular Hgb Conc 34.2 g/dL (32-36); Mean Corpuscular Volume 100.8 fL (80-100); Mean Platelet Volume 9.6 fL (7.4-10.4); Neutrophils # (auto) 9.27 K/uL (1.4-6.5); Neutrophils % (auto) 91.7 %; Platelet Count 100 K/uL (130-400); RDW Coefficient of Variation 14.4 % (11.5-14.5); RDW Standard Deviation 53.2 fL (36.4-46.3); Red Blood Count 2.64 M/uL (4.2-5.4)
[2018-12-14 21:22] LABS: INR 1.1 (0.9-1.1); Partial Thromboplastin Ratio 0.9; Partial Thromboplastin Time 24.5 Seconds (21.0-31.0)
[2018-12-14 21:29] LABS: Albumin Globulin Ratio 0.7 (0.9-2); Albumin Level 2.3 gm/dl (3.4-5.0); BUN Creatinine Ratio 20.1 (10-20); Bilirubin,Total 0.7 mg/dl (0.2-1); C Reactive Protein 12.5 mg/dl (0-0.29); Calcium 8.4 mg/dl (8.5-10.1); Creatinine Clr Calc Pharmacy 19.9 ml/min; Est GFR (African American) 23.6; Est GFR (Non-African American) 20.4; Globulin 3.4 gm/dl (2.5-4.0); Magnesium 1.8 mg/dl (1.8-2.4); Potassium 3.8 mmol/L (3.5-5.1); Total Protein 5.7 gm/dl (6.4-8.2); Troponin I 0.03 ng/ml (0-0.045)
[2018-12-14] MEDS ORDERED: PIPERACILLIN/TAZOBACTAM 4.5 GM/120 ML BAG IV ONE (22:11)
[2018-12-14] MEDS ORDERED: PIPERACILL/TAZOBAC CONSULT ACTIVE PRN (22:11)
--- NOTE | 2018-12-14 22:13 | Emergency Department Note ---
Entered by Arely Mendez acting as a scribe for Dale Reyna DO History of Present Illness General Chief complaint: Weakness Stated complaint: weakness Time Seen by Provider: 12/14/18 20:24 Source: patient Mode of arrival: EMS Limitations: no limitations History of Present Illness Onset (ago): hour(s) 2 Location: lower extremity (weakness ) Pain Consistency: + other (episode ) Exacerbated By: + movement Associated symptoms: + cough, + fever/chills (fever ) and + other (urinating less than usual ) Treatments prior to arrival: none The patient is an 88 year old male who presents to the ED with complaints of an episode of weakness that began 2 hours prior to arrival. The patient states that she has had a cough for 2 weeks that makes her weak in her extremities. The patient claims she is urinating less than usual. The patient reports that she has had chemo this morning for her ovarian cancer with Dr. Alvarez. She reports that the last time she had a scan, the cancer had not metastasized. The patient reports that she felt healthy after her chemo and drove home. She states that after her nap she went to go up the stairs and her legs gave out from under her. The patient states that she has no rashes or skin issues. She states that she was unaware that she had a fever in the ED. The patient states that she has had loose bowel movements for 5 days now. Home Medications Home Medications Medication Instructions Recorded Confirmed Type Immune Health 1 dose PO DAILY 12/14/18 History ascorbic acid (vitamin C) [Vitamin 500 mg PO DAILY 12/14/18 12/14/18 History C] cholecalciferol (vitamin D3) 1,000 unit PO DAILY 12/14/18 12/14/18 History [Vitamin D3] colchicine 0.6 mg PO DAILY PRN 12/14/18 12/14/18 History lisinopril 40 mg PO QAM 12/14/18 12/14/18 History ondansetron HCl 8 mg PO Q8H PRN 12/14/18 12/14/18 History pantoprazole 40 mg PO QAM 12/14/18 12/14/18 History Allergies Allergy/AdvReac Type Severity Reaction Status Date / Time No Known Allergies Allergy Verified 12/14/18 22:19 Past Med/Surg History Medical History HTN (hypertension) Ovarian cancer Family History Other No significant family history Social History Preferred Language: Upper Sorbian Feels Safe at Home: Yes Smoking Status: Never smoker Review of Systems See HPI for pertinent positives & negatives. and A total of 10 systems reviewed and were otherwise negative Physical Exam Vital Signs Vital Signs - 24 hr 12/14/18 20:06 12/14/18 20:16 12/14/18 20:46 Temperature 38.5 C H Temperature Source Oral Sepsis Recent Fever Within 48 Hours Yes Sepsis New/Unexplained Change in Mental Status No Sepsis Action Taken by Nursing No Action Required Pulse Rate 96 H 93 H 91 H Pulse Rate from SpO2 Sensor Respiratory Rate 20 15 Respiratory Effort / Characteristics Non-Labored Spontaneous Blood Pressure 106/62 Blood Pressure Mean 76 Blood Pressure Position Lying Pulse Oximetry 95 96 Oxygen Delivery Method Room Air Room Air Oxygen Flow Rate 12/14/18 20:50 12/14/18 21:00 12/14/18 21:10 Temperature Temperature Source Sepsis Recent Fever Within 48 Hours Sepsis New/Unexplained Change in Mental Status Sepsis Action Taken by Nursing Pulse Rate 91 H 90 91 H Pulse Rate from SpO2 Sensor 91 H 91 H 90 Respiratory Rate 17 18 15 Respiratory Effort / Characteristics Blood Pressure Blood Pressure Mean Blood Pressure Position Pulse Oximetry 93 92 91 Oxygen Delivery Method Oxygen Flow Rate 12/14/18 21:20 12/14/18 21:30 12/14/18 21:34 Temperature Temperature Source Sepsis Recent Fever Within 48 Hours Sepsis New/Unexplained Change in Mental Status Sepsis Action Taken by Nursing Pulse Rate 91 H 94 H 92 H Pulse Rate from SpO2 Sensor 88 82 89 Respiratory Rate 20 17 24 Respiratory Effort / Characteristics Blood Pressure 110/58 L Blood Pressure Mean 75 Blood Pressure Position Pulse Oximetry 91 93 90 Oxygen Delivery Method Oxygen Flow Rate 12/14/18 21:40 12/14/18 21:50 12/14/18 22:00 Temperature Temperature Source Sepsis Recent Fever Within 48 Hours Sepsis New/Unexplained Change in Mental Status Sepsis Action Taken by Nursing Pulse Rate 90 98 H 93 H Pulse Rate from SpO2 Sensor 102 H 80 Respiratory Rate 22 28 H 23 Respiratory Effort / Characteristics Blood Pressure 103/51 L Blood Pressure Mean 68 Blood Pressure Position Pulse Oximetry 90 91 Oxygen Delivery Method Oxygen Flow Rate 12/14/18 22:10 12/14/18 22:20 12/14/18 22:30 Temperature 37.0 C Temperature Source Sepsis Recent Fever Within 48 Hours Sepsis New/Unexplained Change in Mental Status Sepsis Action Taken by Nursing Pulse Rate 90 87 85 Pulse Rate from SpO2 Sensor 88 88 84 Respiratory Rate 21 21 21 Respiratory Effort / Characteristics Blood Pressure 107/65 Blood Pressure Mean 79 Blood Pressure Position Pulse Oximetry 90 91 90 Oxygen Delivery Method Oxygen Flow Rate 12/14/18 22:40 12/14/18 22:41 Temperature Temperature Source Sepsis Recent Fever Within 48 Hours Sepsis New/Unexplained Change in Mental Status Sepsis Action Taken by Nursing Pulse Rate 88 Pulse Rate from SpO2 Sensor 88 Respiratory Rate 24 Respiratory Effort / Characteristics Blood Pressure Blood Pressure Mean Blood Pressure Position Pulse Oximetry 89 L 94 Oxygen Delivery Method Nasal Cannula Oxygen Flow Rate 2 GENERAL: Patient is awake alert in no acute distress patient is resting comfortably and showing no signs of anxiety EYES: The conjunctivae are pale. The pupils are round and reactive. EARS, NOSE, MOUTH AND THROAT: The nose is without any evidence of any deformity. Mucous members are dry. NECK: The neck is nontender and supple. RESPIRATORY: Normal respiratory effort was noted. There are rales at both bases. CARDIOVASCULAR: Regular rate and rhythm noted there no murmurs rubs or gallops normal S1 normal S2 GASTROINTESTINAL: The abdomen is soft. Bowel sounds are present in all quadrants. Abdomen is nontender MUSCULOSKELETAL/EXTREMITIES: There is no evidence of gross deformity full range of motion is noted in the hips and shoulders SKIN: There is no obvious evidence of any rash. Skin was warm and dry. There is pedal edema bilaterally. NEUROLOGIC: Patient is awake alert and oriented x3. Strength is symmetric. Course 2027: Past medical records reviewed. The patient was evaluated in room C6. A complete history and physical exam was performed. 2199: I discussed the patient's case with Dr. Murguia [facility]. He agreed to evaluate the patient for further management. Administered Medications Discontinued Medications Acetaminophen (Tylenol) 650 mg PO NOW STA Stop: 12/14/18 20:30 Last Admin: 12/14/18 20:49 Dose: 650 mg Documented by: [id number] Sodium Chloride (Nss 1000ml) 1,000 mls @ 999 mls/hr IV .Q1H1M ONE Stop: 12/14/18 21:29 Last Infusion: 12/14/18 22:20 Dose: 0 mls/hr Documented by: [id number] Admin: 12/14/18 20:51 Dose: 999 mls/hr Documented by: [id number] Sodium Chloride (Nss 1000ml) 1,000 mls @ 999 mls/hr IV .Q1H1M ONE Stop: 12/14/18 23:11 Last Infusion: 12/14/18 23:33 Dose: 0 mls/hr Documented by: [id number] Admin: 12/14/18 22:25 Dose: 999 mls/hr Documented by: [id number] Piperacillin Sod/Tazobactam Sod (Zosyn) 4.5 gm in 120 mls @ 240 mls/hr IV NOW ONE Stop: 12/14/18 22:40 Last Infusion: 12/14/18 22:55 Dose: 0 mls/hr Documented by: [id number] Admin: 12/14/18 22:25 Dose: 240 mls/hr Documented by: [id number] Medical Decision Making Differential Diagnosis Differential Diagnosis includes but is not limited to dehydration, stroke, anemia, hypoglycemia, hyponatremia, hypernatremia, urinary tract infection, pneumonia, bronchitis, sepsis, gastroenteritis, additional abdominal pathology, metabolic abnormalities and infections. Medical Records Attestation: I reviewed the patient's medical records. Home Medications Current Medication List: was personally reviewed by me Laboratory Data Attestation: I reviewed the patient's lab results. Result diagrams: 12/14/18 20:49 12/14/18 20:56 Lab Results 12/14/18 12/14/18 12/14/18 Range/Units 20:49 20:55 20:56 WBC 10.10 (4.8-10.8) K/uL RBC 2.64 L (4.2-5.4) M/uL Hgb 9.1 L (12.0-16.0) g/dL Hct 26.6 L (37-47) % MCV 100.8 H (80-100) fL MCH 34.5 H (25-34) pg MCHC 34.2 (32-36) g/dL RDW Std Deviation 53.2 H (36.4-46.3) fL RDW Coeff of Adan 14.4 (11.5-14.5) % Plt Count 100 L (130-400) K/uL MPV 9.6 (7.4-10.4) fL Immature Gran % (Auto) 0.4 % Neut % (Auto) 91.7 % Lymph % (Auto) 2.6 % Storey % (Auto) 5.0 % Eos % (Auto) 0.2 % Baso % (Auto) 0.1 % Immature Gran # (Auto) 0.04 H (0.00-0.02) K/uL Neut # (Auto) 9.27 H (1.4-6.5) K/uL Lymph # (Auto) 0.26 L (1.2-3.4) K/uL Storey # (Auto) 0.50 (0.11-0.59) K/uL Eos # (Auto) 0.02 (0-0.5) K/uL Baso # (Auto) 0.01 (0-0.2) K/uL ESR 63 H (0-21) mm/hr PT 11.0 (9.0-12.0) Seconds INR 1.1 (0.9-1.1) APTT 24.5 (21.0-31.0) Seconds PTT Ratio 0.9 Sodium (136-145) mmol/L Potassium (3.5-5.1) mmol/L Chloride (98-107) mmol/L Carbon Dioxide (21-32) mmol/L Anion Gap (3-11) BUN (7-18) mg/dl Creatinine (0.6-1.2) mg/dl Est Cr Clr Drug Dosing ml/min Est GFR ( Amer) Est GFR (Non-Af Amer) BUN/Creatinine Ratio (10-20) Glucose (70-99) mg/dl Lactate (0.4-2.0) mmol/L Calcium (8.5-10.1) mg/dl Magnesium (1.8-2.4) mg/dl Total Bilirubin (0.2-1) mg/dl AST (15-37) U/L ALT (12-78) U/L Alkaline Phosphatase (45-117) U/L Troponin I (0-0.045) ng/ml C-Reactive Protein (0-0.29) mg/dl Total Protein (6.4-8.2) gm/dl Albumin (3.4-5.0) gm/dl Globulin (2.5-4.0) gm/dl Albumin/Globulin Ratio (0.9-2) Procalcitonin (0-0.5) ng/ml Urine Color Urine Appearance (Clear) Urine pH (4.5-7.5) Ur Specific Rush (1.000-1.030) Urine Protein (Negative) Urine Glucose (UA) (Negative) Urine Ketones (Negative) Urine Blood (Negative) Urine Nitrite (Negative) Urine Bilirubin (Negative) Urine Urobilinogen (Negative) Ur Leukocyte Esterase (Negative) Urine WBC (Auto) (0-5) /hpf Urine RBC (Auto) (0-4) /hpf U Hyaline Cast (Auto) (0-5) /lpf U Epithel Cells (Auto) (0-5) /lpf Urine Bacteria (Auto) (Negative) Urine Yeast (None Prsent) 12/14/18 12/14/18 12/14/18 Range/Units 20:56 20:56 20:56 WBC (4.8-10.8) K/uL RBC (4.2-5.4) M/uL Hgb (12.0-16.0) g/dL Hct (37-47) % MCV (80-100) fL MCH (25-34) pg MCHC (32-36) g/dL RDW Std Deviation (36.4-46.3) fL RDW Coeff of Adan (11.5-14.5) % Plt Count (130-400) K/uL MPV (7.4-10.4) fL Immature Gran % (Auto) % Neut % (Auto) % Lymph % (Auto) % Storey % (Auto) % Eos % (Auto) % Baso % (Auto) % Immature Gran # (Auto) (0.00-0.02) K/uL Neut # (Auto) (1.4-6.5) K/uL Lymph # (Auto) (1.2-3.4) K/uL Storey # (Auto) (0.11-0.59) K/uL Eos # (Auto) (0-0.5) K/uL Baso # (Auto) (0-0.2) K/uL ESR (0-21) mm/hr PT (9.0-12.0) Seconds INR (0.9-1.1) APTT (21.0-31.0) Seconds PTT Ratio Sodium 135 L (136-145) mmol/L Potassium 3.8 (3.5-5.1) mmol/L Chloride 105 (98-107) mmol/L Carbon Dioxide 23 (21-32) mmol/L Anion Gap 8.0 (3-11) BUN 42 H (7-18) mg/dl Creatinine 2.11 H D (0.6-1.2) mg/dl Est Cr Clr Drug Dosing 19.9 ml/min Est GFR ( Amer) 23.6 Est GFR (Non-Af Amer) 20.4 BUN/Creatinine Ratio 20.1 H (10-20) Glucose 217 H (70-99) mg/dl Lactate 1.2 (0.4-2.0) mmol/L Calcium 8.4 L (8.5-10.1) mg/dl Magnesium 1.8 (1.8-2.4) mg/dl Total Bilirubin 0.7 (0.2-1) mg/dl AST 16 (15-37) U/L ALT 10 L (12-78) U/L Alkaline Phosphatase 45 (45-117) U/L Troponin I 0.030 (0-0.045) ng/ml C-Reactive Protein 12.50 H (0-0.29) mg/dl Total Protein 5.7 L (6.4-8.2) gm/dl Albumin 2.3 L (3.4-5.0) gm/dl Globulin 3.4 (2.5-4.0) gm/dl Albumin/Globulin Ratio 0.7 L (0.9-2) Procalcitonin 5.25 H (0-0.5) ng/ml Urine Color Urine Appearance (Clear) Urine pH (4.5-7.5) Ur Specific Rush (1.000-1.030) Urine Protein (Negative) Urine Glucose (UA) (Negative) Urine Ketones (Negative) Urine Blood (Negative) Urine Nitrite (Negative) Urine Bilirubin (Negative) Urine Urobilinogen (Negative) Ur Leukocyte Esterase (Negative) Urine WBC (Auto) (0-5) /hpf Urine RBC (Auto) (0-4) /hpf U Hyaline Cast (Auto) (0-5) /lpf U Epithel Cells (Auto) (0-5) /lpf Urine Bacteria (Auto) (Negative) Urine Yeast (None Prsent) 12/14/18 Range/Units 21:50 WBC (4.8-10.8) K/uL RBC (4.2-5.4) M/uL Hgb (12.0-16.0) g/dL Hct (37-47) % MCV (80-100) fL MCH (25-34) pg MCHC (32-36) g/dL RDW Std Deviation (36.4-46.3) fL RDW Coeff of Adan (11.5-14.5) % Plt Count (130-400) K/uL MPV (7.4-10.4) fL Immature Gran % (Auto) % Neut % (Auto) % Lymph % (Auto) % Storey % (Auto) % Eos % (Auto) % Baso % (Auto) % Immature Gran # (Auto) (0.00-0.02) K/uL Neut # (Auto) (1.4-6.5) K/uL Lymph # (Auto) (1.2-3.4) K/uL Storey # (Auto) (0.11-0.59) K/uL Eos # (Auto) (0-0.5) K/uL Baso # (Auto) (0-0.2) K/uL ESR (0-21) mm/hr PT (9.0-12.0) Seconds INR (0.9-1.1) APTT (21.0-31.0) Seconds PTT Ratio Sodium (136-145) mmol/L Potassium (3.5-5.1) mmol/L Chloride (98-107) mmol/L Carbon Dioxide (21-32) mmol/L Anion Gap (3-11) BUN (7-18) mg/dl Creatinine (0.6-1.2) mg/dl Est Cr Clr Drug Dosing ml/min Est GFR ( Amer) Est GFR (Non-Af Amer) BUN/Creatinine Ratio (10-20) Glucose (70-99) mg/dl Lactate (0.4-2.0) mmol/L Calcium (8.5-10.1) mg/dl Magnesium (1.8-2.4) mg/dl Total Bilirubin (0.2-1) mg/dl AST (15-37) U/L ALT (12-78) U/L Alkaline Phosphatase (45-117) U/L Troponin I (0-0.045) ng/ml C-Reactive Protein (0-0.29) mg/dl Total Protein (6.4-8.2) gm/dl Albumin (3.4-5.0) gm/dl Globulin (2.5-4.0) gm/dl Albumin/Globulin Ratio (0.9-2) Procalcitonin (0-0.5) ng/ml Urine Color Yellow Urine Appearance Turbid A (Clear) Urine pH 5.0 (4.5-7.5) Ur Specific Rush 1.017 (1.000-1.030) Urine Protein 2+ H (Negative) Urine Glucose (UA) Negative (Negative) Urine Ketones Trace H (Negative) Urine Blood 1+ H (Negative) Urine Nitrite Negative (Negative) Urine Bilirubin Negative (Negative) Urine Urobilinogen Negative (Negative) Ur Leukocyte Esterase 2+ H (Negative) Urine WBC (Auto) >30 H (0-5) /hpf Urine RBC (Auto) 0-4 (0-4) /hpf U Hyaline Cast (Auto) 10-30 H (0-5) /lpf U Epithel Cells (Auto) >30 H (0-5) /lpf Urine Bacteria (Auto) 4+ H (Negative) Urine Yeast Present A (None Prsent) Imaging Data Radiologist's Impression: Radiology results as stated below per my review and the radiologist's interpretation: XR chest 1V portable CLINICAL HISTORY: Sepsis COMPARISON STUDY: 10/28/2017 FINDINGS: The heart is enlarged. There is a left subclavian A-Port catheter present. There is mild elevation of interstitium indicating possible mild pulmonary vascular congestion. There are bibasilar opacities, atelectatic versus infectious/inflammatory. The right lower lung zone opacities have a somewhat nodular configuration, and therefore follow-up radiography is recommended to exclude a parenchymal nodule. There is a hiatal hernia.[ IMPRESSION: 1. Hiatal hernia 2. Possible mild pulmonary vascular congestion 3. Bibasilar opacities, atelectatic versus infectious/inflammatory. Clinical and radiographic follow-up is recommended Electronically signed by: Suman Hall M.D. 12/14/2018 8:55 PM Blood Pressure Blood Pressure Findings: Normal blood pressure Blood Pressure Disposition: did not require urgent referral MDM Narrative The patient is an 88-year-old female who presented to the emergency department by ambulance. The patient had an episode of generalized weakness and near sync ope at home. She had a fall and was unable to stand. I was called by the prehospital personnel and notified that the patient had hypotension but she did not wish to come to the emergency department at that time. The patient ultimately was transported to the emergency department because of continued weakness. She was found to have a low-grade fever and hypotension. The patient is a history of ovarian cancer. She was treated with IV fluids. A septic work-up was undertaken given the patient's hypotension. Ultimately it does appear that her source of infection is likely her urine although her chest x-ray was abnormal. She was treated with IV fluids and IV antibiotics. She was reevaluated multiple times. On subsequent reevaluation she was feeling much better. She was also found to have an increase in her creatinine compared to baseline. This may explain the patient's overall hypotension and generalized weakness as well. I discussed her case with the on-call [facility] talist group. They have agreed to evaluate the patient in the emergency department for further management and disposition. Impression & Plan Acute UTI, Fever, Acute kidney injury, Weakness, Hypotension Discharge Plan Visit Data Chief Complaint: Weakness Stated Complaint: weakness ED Provider: Dale Reyna Discharge Problem: Acute UTI, Fever, Acute kidney injury, Weakness, Hypotension Forms Stand Alone Forms: My [facility] Prescriptions Prescriptions: No Action ondansetron HCl 8 mg tablet 8 mg PO Q8H PRN (Reason: Nausea) RF: 0 pantoprazole 40 mg tablet,delayed release (DR/EC) 40 mg PO QAM RF: 0 ascorbic acid (vitamin C) [Vitamin C] 500 mg Tablet,Chewable 500 mg PO DAILY RF: 0 colchicine 0.6 mg Tablet 0.6 mg PO DAILY PRN (Reason: Gout Flare Up) RF: 0 lisinopril 40 mg Tablet 40 mg PO QAM RF: 0 cholecalciferol (vitamin D3) [Vitamin D3] 1,000 unit Capsule 1,000 unit PO DAILY RF: 0 Immune Health powder 1 dose PO DAILY RF: 0 The scribe's documentation has been prepared under my direction and personally reviewed by me in its entirety. I confirm that the note above accurately reflects all work, treatment, procedures, and medical decision making performed by me.
[2018-12-14 22:31] LABS: Appearance Urine Turbid (Clear); Bacteria Urine Automated 4+ (Negative); Bilirubin Urine Negative (Negative); Blood Urine 1+ (Negative); Color Urine Yellow; Epithelial Cell Urine Auto >30 /lpf (0-5); Glucose Urine UA Negative (Negative); Ketones Urine Trace (Negative); Leukocyte Esterase Urine 2+ (Negative); Nitrite Urine Negative (Negative); Protein Urine 2+ (Negative); Specific Gravity Urine 1.017 (1.000-1.030); Urobilinogen Urine Negative (Negative); WBC Urine Automated >30 /hpf (0-5)
[2018-12-14 22:41] LABS: RBC Urine Automated 0-4 /hpf (0-4)
--- NOTE | 2018-12-14 23:48 | History & Physical Report ---
Date of Service December 14, 2018 Assessment & Plan (1) Weakness: Ms. Tse is an 88-year-old female with [place] refractory ovarian cancer, hypertension and occasional gout who presents with acute weakness starting earlier today after her chemotherapy treatment. She states that she was trying to get back upstairs to her bedroom when she was not able to lift her foot up on the step and notified her medical alert system. She also endorses 1 week of loose stools at least 6/day that were nonbloody for which she took 1 dose of Imodium yesterday and this has resolved. She also endorses chills and malaise for at least a week. She also endorses dry cough for the last several weeks which she thought was due to air conditioning. She has a somewhat hoarse voice now. She arrived to the ED via EMS and per report was hypotensive in route. Currently endorses mild epigastric pain. Denies dyspnea, chest pain, neck pain, lower extremity swelling, melena, hematochezia, dysuria. Endorses mild headache. ED course: Patient presented with fever but is currently afebrile, blood pressure mildly low 107/65, pulse regular, mild hypoxia is on 2 L. Her labs are notable for no neutropenia currently, macrocytosis, anemia H&H 9.1/26.6. INR is 1.1. CHEM profile remarkable for ANNI creatinine is 2.1, BUN 42, glucose elevated to 17. No transaminitis or hyperbilirubinemia. CRP 12.5, pro Kali 5.2 however the patient is on chemotherapy. Albumin is 2.3. Urine shows trace ketones 1+ blood 2+ leukocyte esterase and hyaline casts as well as yeast. Chest x-ray shows right-sided base opacity suspicious for pneumonia. She was given 2 L of normal saline as well as Zosyn. And Tylenol. Social history: She lives alone, closest family is in [place]. She states she is close to her knees. Her nephew Justyn Gomes who lives in [place] is her POA. Weakness -in a patient receiving chemotherapy -urinary vs GI vs pulmonary source although symptomatology seems to suggest GI Plan -c diff studies -Urine and blood cx's pending -empiric abx with Vanc/Zosyn -received 2L fluid boluses, will cont maintenance x 1 more day -antipyretics FEN/GI: regular diet. NSS @ 80 ml/hr x 1 day. DVT ppx: SCDs. Will encourage ambulation. Pt is chemotherapy pt, will likely become more pancytopenic. CODE STATUS: FULL as discussed with pt DISPO: Med/surg 4th floor preferably given ovarian cancer (2) Acute kidney injury: May be multifactorial - although pt endorses decreased PO intake for the last few days, loose stools. Has NOT been taking her PRN colchicine, but is on lisinopril daily. Plan -fluid hydration as above -avoid nephrotoxic meds as possible -HOLD home lisinopril in setting of acute infection, hypotension and ANNI. (3) Fever: antipyretics (4) Hypoxia: in setting of PNA -O2 as needed (5) CRP elevated: in setting of active chemotherapy now with infection (6) Elevated procalcitonin: in setting of active chemotherapy now with infection (7) Ovarian ca: Sees Dr. Villavicencio -- gets chemotherapy weekly for 2 weeks per month. Last treatment was morning of admission 12/15. -monitor for developing neutropenia - can consider Neupogen if so. (8) Loose stools: send for c diff. -add KUB to r/o pneumoperitoneum -zofran PRN (9) Macrocytic anemia: in the setting of chemotherapy pt History of Present Illness Chief Complaint: Weakness, loose stools, found to have ANNI and pneumonia Primary Care Provider: Osvaldo Sosa MD Ms. Tse is an 88-year-old female with [place] refractory ovarian cancer, hypertension and occasional gout who presents with acute weakness starting earlier today after her chemotherapy treatment. She states that she was trying to get back upstairs to her bedroom when she was not able to lift her foot up on the step and notified her medical alert system. She also endorses 1 week of loose stools at least 6/day that were nonbloody for which she took 1 dose of Imodium yesterday and this has resolved. She also endorses chills and malaise for at least a week. She also endorses dry cough for the last several weeks which she thought was due to air conditioning. She has a somewhat hoarse voice now. She arrived to the ED via EMS and per report was hypotensive in route. Currently endorses mild epigastric pain. Denies dyspnea, chest pain, neck pain, lower extremity swelling, melena, hematochezia, dysuria. Endorses mild headache . ED course: Patient presented with fever but is currently afebrile, blood pressure mildly low 107/65, pulse regular, mild hypoxia is on 2 L. Her labs are notable for no neutropenia currently, macrocytosis, anemia H&H 9.1/26.6. INR is 1.1. CHEM profile remarkable for ANNI creatinine is 2.1, BUN 42, glucose elevated to 17. No transaminitis or hyperbilirubinemia. CRP 12.5, pro Kali 5.2 however the patient is on chemotherapy. Albumin is 2.3. Urine shows trace ketones 1+ blood 2+ leukocyte esterase and hyaline casts as well as yeast. Chest x-ray shows right-sided base opacity suspicious for pneumonia. She was given 2 L of normal saline as well as Zosyn. And Tylenol. Social history: She lives alone, closest family is in [place]. She states she is close to her knees. Her nephew Justyn Gomes who lives in [place] is her POA. Allergies Allergy/AdvReac Type Severity Reaction Status Date / Time No Known Allergies Allergy Verified 12/14/18 22:19 Home Medications Home Medications Medication Instructions Recorded Confirmed Type Immune Health 1 dose PO DAILY 12/14/18 History ascorbic acid (vitamin C) [Vitamin 500 mg PO DAILY 12/14/18 12/14/18 History C] cholecalciferol (vitamin D3) 1,000 unit PO DAILY 12/14/18 12/14/18 History [Vitamin D3] colchicine 0.6 mg PO DAILY PRN 12/14/18 12/14/18 History lisinopril 40 mg PO QAM 12/14/18 12/14/18 History ondansetron HCl 8 mg PO Q8H PRN 12/14/18 12/14/18 History pantoprazole 40 mg PO QAM 12/14/18 12/14/18 History Past Med/Surg History Medical History Ovarian ca (Chronic) Acid reflux Ankle fracture HTN (hypertension) Hiatal hernia Ovarian cancer Prediabetes Family History Other No significant family history Social History Preferred Language: [place]ian Communication Ability: Effective Doll Surgeon Required: No Beliefs That Will Affect Care: None Current Living Situation: Alone Feels Safe at Home: Yes Safety Concerns: Feels Safe At This Time Smoking Status: Never smoker Hx Alcohol Use: No Hx Substance Use: No Review of Systems Review of Systems: All systems reviewed & are unremarkable except as noted in HPI & below Physical Exam Physical Exam: Vitals noted and within normal limits. GENERAL: Awake, alert to person, place, and time, nontoxic-appearing, in no distress. + pallor. HENT: Normocephalic, atraumatic. Nasal cannula in place. EYES: Normal conjunctiva. Sclera non-icteric. EOMI. NECK: Supple. Full range of motion. No JVD. RESPIRATORY: Clear to auscultation. Normal work of breathing. CARDIAC: Regular rate, normal rhythm. Extremities warm and well perfused, 2+ radial pulses bilaterally; 2+ posterior tibialis pulses bilaterally. ABDOMEN: Soft, non-distended. No tenderness to palpation in all four quadrants. No rebound or guarding. No masses. Bowel sounds are normal. LOWER EXTREMITIES: Inspection of calves reveal equal size bilaterally. They are non-tender. No edema. No discoloration. NEURO: No gross focal motor deficits noted. Sensation in tact. CN II-XII grossly in tact. . SKIN: Rash not present. No jaundice noted. Significant lesions not present. PSYCH: Appropriate mood and affect. Cooperative. Exam as done by Ara Rubio MD, Water Attendant. Results & Data Vital Signs (Past 12 Hours) Vital Signs Temp Pulse Resp BP Pulse Ox 12/14/18 22:41 94 12/14/18 22:40 88 24 89 L 12/14/18 22:30 37.0 C 85 21 107/65 90 12/14/18 22:20 87 21 91 12/14/18 22:10 90 21 90 12/14/18 22:00 93 H 23 103/51 L 91 12/14/18 21:50 98 H 28 H 90 12/14/18 21:40 90 22 12/14/18 21:34 92 H 24 110/58 L 90 12/14/18 21:30 94 H 17 93 12/14/18 21:20 91 H 20 91 12/14/18 21:10 91 H 15 91 12/14/18 21:00 90 18 92 12/14/18 20:50 91 H 17 93 12/14/18 20:46 91 H 15 12/14/18 20:16 93 H 96 12/14/18 20:06 38.5 C H 96 H 20 106/62 95 Laboratory Results 12/14/18 12/14/18 12/14/18 Range/Units 21:50 20:56 20:56 WBC (4.8-10.8) K/uL RBC (4.2-5.4) M/uL Hgb (12.0-16.0) g/dL Hct (37-47) % MCV (80-100) fL MCH (25-34) pg MCHC (32-36) g/dL RDW Std Deviation (36.4-46.3) fL RDW Coeff of Adan (11.5-14.5) % Plt Count (130-400) K/uL MPV (7.4-10.4) fL Immature Gran % (Auto) % Neut % (Auto) % Lymph % (Auto) % Castro % (Auto) % Eos % (Auto) % Baso % (Auto) % Immature Gran # (Auto) (0.00-0.02) K/uL Neut # (Auto) (1.4-6.5) K/uL Lymph # (Auto) (1.2-3.4) K/uL Castro # (Auto) (0.11-0.59) K/uL Eos # (Auto) (0-0.5) K/uL Baso # (Auto) (0-0.2) K/uL ESR (0-21) mm/hr PT (9.0-12.0) Seconds INR (0.9-1.1) APTT (21.0-31.0) Seconds PTT Ratio Sodium (136-145) mmol/L Potassium (3.5-5.1) mmol/L Chloride (98-107) mmol/L Carbon Dioxide (21-32) mmol/L Anion Gap (3-11) BUN (7-18) mg/dl Creatinine (0.6-1.2) mg/dl Est Cr Clr Drug Dosing ml/min Est GFR ( Amer) Est GFR (Non-Af Amer) BUN/Creatinine Ratio (10-20) Glucose (70-99) mg/dl Lactate 1.2 (0.4-2.0) mmol/L Calcium (8.5-10.1) mg/dl Magnesium (1.8-2.4) mg/dl Total Bilirubin (0.2-1) mg/dl AST (15-37) U/L ALT (12-78) U/L Alkaline Phosphatase (45-117) U/L Troponin I (0-0.045) ng/ml C-Reactive Protein (0-0.29) mg/dl Total Protein (6.4-8.2) gm/dl Albumin (3.4-5.0) gm/dl Globulin (2.5-4.0) gm/dl Albumin/Globulin Ratio (0.9-2) Procalcitonin 5.25 H (0-0.5) ng/ml Urine Color Yellow Urine Appearance Turbid A (Clear) Urine pH 5.0 (4.5-7.5) Ur Specific [place] 1.017 (1.000-1.030) Urine Protein 2+ H (Negative) Urine Glucose (UA) Negative (Negative) Urine Ketones Trace H (Negative) Urine Blood 1+ H (Negative) Urine Nitrite Negative (Negative) Urine Bilirubin Negative (Negative) Urine Urobilinogen Negative (Negative) Ur Leukocyte Esterase 2+ H (Negative) Urine WBC (Auto) >30 H (0-5) /hpf Urine RBC (Auto) 0-4 (0-4) /hpf U Hyaline Cast (Auto) 10-30 H (0-5) /lpf U Epithel Cells (Auto) >30 H (0-5) /lpf Urine Bacteria (Auto) 4+ H (Negative) Urine Yeast Present A (None Prsent) 12/14/18 12/14/18 12/14/18 Range/Units 20:56 20:56 20:55 WBC (4.8-10.8) K/uL RBC (4.2-5.4) M/uL Hgb (12.0-16.0) g/dL Hct (37-47) % MCV (80-100) fL MCH (25-34) pg MCHC (32-36) g/dL RDW Std Deviation (36.4-46.3) fL RDW Coeff of Adan (11.5-14.5) % Plt Count (130-400) K/uL MPV (7.4-10.4) fL Immature Gran % (Auto) % Neut % (Auto) % Lymph % (Auto) % Castro % (Auto) % Eos % (Auto) % Baso % (Auto) % Immature Gran # (Auto) (0.00-0.02) K/uL Neut # (Auto) (1.4-6.5) K/uL Lymph # (Auto) (1.2-3.4) K/uL Castro # (Auto) (0.11-0.59) K/uL Eos # (Auto) (0-0.5) K/uL Baso # (Auto) (0-0.2) K/uL ESR 63 H (0-21) mm/hr PT 11.0 (9.0-12.0) Seconds INR 1.1 (0.9-1.1) APTT 24.5 (21.0-31.0) Seconds PTT Ratio 0.9 Sodium 135 L (136-145) mmol/L Potassium 3.8 (3.5-5.1) mmol/L Chloride 105 (98-107) mmol/L Carbon Dioxide 23 (21-32) mmol/L Anion Gap 8.0 (3-11) BUN 42 H (7-18) mg/dl Creatinine 2.11 H D (0.6-1.2) mg/dl Est Cr Clr Drug Dosing 19.9 ml/min Est GFR ( Amer) 23.6 Est GFR (Non-Af Amer) 20.4 BUN/Creatinine Ratio 20.1 H (10-20) Glucose 217 H (70-99) mg/dl Lactate (0.4-2.0) mmol/L Calcium 8.4 L (8.5-10.1) mg/dl Magnesium 1.8 (1.8-2.4) mg/dl Total Bilirubin 0.7 (0.2-1) mg/dl AST 16 (15-37) U/L ALT 10 L (12-78) U/L Alkaline Phosphatase 45 (45-117) U/L Troponin I 0.030 (0-0.045) ng/ml C-Reactive Protein 12.50 H (0-0.29) mg/dl Total Protein 5.7 L (6.4-8.2) gm/dl Albumin 2.3 L (3.4-5.0) gm/dl Globulin 3.4 (2.5-4.0) gm/dl Albumin/Globulin Ratio 0.7 L (0.9-2) Procalcitonin (0-0.5) ng/ml Urine Color Urine Appearance (Clear) Urine pH (4.5-7.5) Ur Specific [place] (1.000-1.030) Urine Protein (Negative) Urine Glucose (UA) (Negative) Urine Ketones (Negative) Urine Blood (Negative) Urine Nitrite (Negative) Urine Bilirubin (Negative) Urine Urobilinogen (Negative) Ur Leukocyte Esterase (Negative) Urine WBC (Auto) (0-5) /hpf Urine RBC (Auto) (0-4) /hpf U Hyaline Cast (Auto) (0-5) /lpf U Epithel Cells (Auto) (0-5) /lpf Urine Bacteria (Auto) (Negative) Urine Yeast (None Prsent) 12/14/18 Range/Units 20:49 WBC 10.10 (4.8-10.8) K/uL RBC 2.64 L (4.2-5.4) M/uL Hgb 9.1 L (12.0-16.0) g/dL Hct 26.6 L (37-47) % MCV 100.8 H (80-100) fL MCH 34.5 H (25-34) pg MCHC 34.2 (32-36) g/dL RDW Std Deviation 53.2 H (36.4-46.3) fL RDW Coeff of Adan 14.4 (11.5-14.5) % Plt Count 100 L (130-400) K/uL MPV 9.6 (7.4-10.4) fL Immature Gran % (Auto) 0.4 % Neut % (Auto) 91.7 % Lymph % (Auto) 2.6 % Castro % (Auto) 5.0 % Eos % (Auto) 0.2 % Baso % (Auto) 0.1 % Immature Gran # (Auto) 0.04 H (0.00-0.02) K/uL Neut # (Auto) 9.27 H (1.4-6.5) K/uL Lymph # (Auto) 0.26 L (1.2-3.4) K/uL Castro # (Auto) 0.50 (0.11-0.59) K/uL Eos # (Auto) 0.02 (0-0.5) K/uL Baso # (Auto) 0.01 (0-0.2) K/uL ESR (0-21) mm/hr PT (9.0-12.0) Seconds INR (0.9-1.1) APTT (21.0-31.0) Seconds PTT Ratio Sodium (136-145) mmol/L Potassium (3.5-5.1) mmol/L Chloride (98-107) mmol/L Carbon Dioxide (21-32) mmol/L Anion Gap (3-11) BUN (7-18) mg/dl Creatinine (0.6-1.2) mg/dl Est Cr Clr Drug Dosing ml/min Est GFR ( Amer) Est GFR (Non-Af Amer) BUN/Creatinine Ratio (10-20) Glucose (70-99) mg/dl Lactate (0.4-2.0) mmol/L Calcium (8.5-10.1) mg/dl Magnesium (1.8-2.4) mg/dl Total Bilirubin (0.2-1) mg/dl AST (15-37) U/L ALT (12-78) U/L Alkaline Phosphatase (45-117) U/L Troponin I (0-0.045) ng/ml C-Reactive Protein (0-0.29) mg/dl Total Protein (6.4-8.2) gm/dl Albumin (3.4-5.0) gm/dl Globulin (2.5-4.0) gm/dl Albumin/Globulin Ratio (0.9-2) Procalcitonin (0-0.5) ng/ml Urine Color Urine Appearance (Clear) Urine pH (4.5-7.5) Ur Specific [place] (1.000-1.030) Urine Protein (Negative) Urine Glucose (UA) (Negative) Urine Ketones (Negative) Urine Blood (Negative) Urine Nitrite (Negative) Urine Bilirubin (Negative) Urine Urobilinogen (Negative) Ur Leukocyte Esterase (Negative) Urine WBC (Auto) (0-5) /hpf Urine RBC (Auto) (0-4) /hpf U Hyaline Cast (Auto) (0-5) /lpf U Epithel Cells (Auto) (0-5) /lpf Urine Bacteria (Auto) (Negative) Urine Yeast (None Prsent) Supervising Physician Co-Signing Physician Notes Attending addendum: I have physically seen this patient, have supervised the medical residents activities, and agree with the H&P unless as otherwise noted. Assessment and Plan: Generalized weakness- Multifactorial: progressive anemia, acute kidney injury, UTI, bibasilar pneumonia causing hypoxia. Follow urine cultures, sputum culture Gram stain and blood cultures. Empiric antibiotics with vancomycin IV and Zosyn IV per pharmacokinetic monitoring. Acute kidney injury- Creatinine 2.11 upon admission with baseline 1.01. IV fluid rehydration to continue beyond 2 L given in the ED. Repeat laboratories in a.m. Hold lisinopril. Bibasilar pneumonia-- Antibiotics as above. Guaifenesin extended release 600 mg p.o. twice daily. Duonebs every 4 hours while awake and every 2 hours when necessary. Remainder of orders and notations as noted. PG Care Time/CCT Total # of Minutes Spent Total Time Spent with Patient: Total time spent is greater than 50% in coor dination of care (as documented) at patient's floor/unit and/or counseling patient: Resident Activity Tracking Resident Involvement: Resident Care Provided Care Provided: Adult Hospital Medicine (1) Fever Fever type: unspecified Qualified Code(s): R50.9 - Fever, unspecified
[2018-12-15] MEDS ORDERED: FLUCONAZOLE 100 MG TAB PO ONE (01:33)
[2018-12-15] MEDS ORDERED: MAGNESIUM HYDROXIDE SUSP 30 ML UDC PO PRN (01:33)
[2018-12-15] MEDS ORDERED: VANCOMYCIN CONSULT ACTIVE PRN (01:33)
[2018-12-15] MEDS ORDERED: ALUMINUM/MAGNESIUM SUSP 30 ML UDC PO PRN (01:33)
[2018-12-15] MEDS ORDERED: VANCOMYCIN HCL 1,500 MG in SODIUM CHLORIDE 0.9% 500 ML IV SCH (02:00)
[2018-12-15] MEDS: SODIUM CHLORIDE 0.9% 1000ML 1,000 ML IV SCH ×2 (02:49→14:47)
[2018-12-15 05:59] LABS: Hemoglobin 7.9 g/dL (12.0-16.0); Mean Corpuscular Hgb Conc 34.3 g/dL (32-36); RDW Coefficient of Variation 14.5 % (11.5-14.5); RDW Standard Deviation 52.1 fL (36.4-46.3); White Blood Count 8.11 K/uL (4.8-10.8)
[2018-12-15 06:34] LABS: Echinocytes 1+; Immature Granulocytes # (auto) 0.02 K/uL (0.00-0.02); Immature Granulocytes % (auto) 0.2 %; Lymphocytes # (auto) 0.42 K/uL (1.2-3.4); Lymphocytes % (auto) 5.2 %; Mean Platelet Volume 9.5 fL (7.4-10.4); Monocytes # (auto) 0.35 K/uL (0.11-0.59); Monocytes % (auto) 4.3 %; Neutrophils # (auto) 7.32 K/uL (1.4-6.5); Neutrophils % (auto) 90.3 %; Ovalocytes 1+; Platelet Count 88 K/uL (130-400); Platelet Estimate Decreased (Normal); Tear Drop Cells 1+
[2018-12-15 06:37] LABS: BUN Creatinine Ratio 19.1 (10-20); Calcium 7.9 mg/dl (8.5-10.1); Creatinine Clr Calc Pharmacy 18.9 ml/min; Est GFR (African American) 22.1; Est GFR (Non-African American) 19.1; Potassium 3.9 mmol/L (3.5-5.1)
--- NOTE | 2018-12-15 07:33 | XRay Report ---
KUB CLINICAL HISTORY: Generalized abdominal pain. FINDINGS: 2 AP supine abdominal radiographs are correlated with abdominal CT dated 09/23/2018. There is a nonobstructed abdominal bowel gas pattern. No evidence of intraperitoneal free air is seen on thes e supine images. There is mild to moderate colonic fecal retention. There are no abnormal abdominal c alcifications. Phleboliths are observed in the pelvis. Slightly increased density throughout the abdo men may correspond to abdominal ascites. The skeletal structures are osteopenic. The bony structures appear intact. IMPRESSION: 1. Nonobstructed abdominal bowel gas pattern. 2. Question abdominal ascites. This could be assessed with ultrasound if clinically warranted. Electronically signed by: Haile Faye M.D. 12/15/2018 7:32 AM
[2018-12-15] MEDS: PIPERACILLIN/TAZOBACTAM 3.375 GM in DEXTROSE 5% 100 ML IV SCH ×2 (08:21→20:28)
[2018-12-15] MEDS: PANTOprazole 40 MG TAB PO SCH (08:22)
--- NOTE | 2018-12-15 08:25 | Family Medicine Progress Note ---
Date of Service December 15, 2018 Assessment & Plan (1) Weakness: Ms. Tse is an 88-year-old female with ovarian cancer on chemo who was admitted on 12/14 for weakness with a CXR showing a mass suspicious for RLL PNA and UA concerning for UTI. Weakness -etiology unknown, possibly multifactorial -on chemotherapy -urinary vs pulmonary infectious source -normal WBC -patient febrile on arrival to ED; now afebrile -on IV Vanc/Zosyn -will narrow antibiotic regimen when blood, urine, and MRSA nasal cultures return FEN/GI: regular diet. NSS @ 80 ml/hr x 1 day. DVT ppx: Bilateral SCDs. CODE STATUS: FULL DISPO: Med/surg Present on Admission?: Yes (2) Acute kidney injury: -Cr 2.23 12/15; baseline near 1.0 -BUN/Cr = 19 -etiology likely prerenal, although intrarenal (ATN) may also be a contributor -patient received 2 fluid boluses; now on gentle maintenance fluids -continue to monitor with daily BMPs -renal dosing of meds as appropriate -Vancomycin/zosyn combo (increased risk of nephrotoxicity) will be narrowed as soon as cultures returned -holding home lisinopril Present on Admission?: Yes (3) Fever: -antipyretics prn -afebrile today 12/15 Present on Admission?: Yes (4) Hypoxia: -satting 93 on 2L NC (5) CRP elevated: in setting of active chemotherapy now with infection (6) Elevated procalcitonin: in setting of active chemotherapy now with infection (7) Ovarian ca: -Follows with Dr. Silva; gets chemotherapy weekly for 2/month. - received treatment on the morning of admission 12/15. -monitor for developing neutropenia (WBC normal today 12/15) Present on Admission?: Yes (8) Loose stools: -patient reports baseline constipation -possible etiologies: c.diff vs. constipation induced -unlikely secondary to C.diff given normal WBC count; patient reports slightly formed stool since admission -ordered miralax TID (9) Macrocytic anemia: in the setting of chemotherapy pt Supervising Physician Co-Signing Physician Notes I personally examined the patient and verified all zuniga points of history and exam, discussed case, and agree with decision making with Dr Siddiqui. Feeling much better than last night. Still weak but is trying to get up and out of bed some. Describes diarrhea is basically soft but solid stool. Vitals noted, in general she is awake and alert pleasant no distress. HEENT normocephalic atraumatic mucous members moist. Abdomen is soft mildly distended mild diffuse firmness no guarding/rebound/rigidity Weaknessappears to be due to sepsis. Improving. PT/OT eval and treat, hopefully she will be able to go home. Sepsisseems to be related to pneumonia versus urine versus both. Continue current antibiotic coverage and follow for improvement. Await culture results. DVT prophylaxispharmacologic is fairly risky given her low counts (low counts likely related to chemotherapy). She does have mechanical DVT prophylaxis in place (appears to be fairly low risk for skin breakdown or falls) and she is working on being more ambulatory. Diarrheahistory of chronic constipation, KUB with fecal load, physical exam with a degree of distention all point towards a degree of constipation with overflow diarrhea. Gentle bowel regimen (not wanting to induce further dehydration, but definitely wanting to move bowels so that her appetite improve s) Acute renal failureappears to be hypovolemia/sepsis mediated, hopefully all prerenal. Continue IV fluids and follow. Subjective resting comfortably in bed. reports feeling much better than yesterday. Denies any abdominal symptoms or urinary symptoms. Says her breathing is good. Review of Systems Review of Systems: Constitutional: No fevers, chills, night sweats Cardiovascular: No chest pain, palpitations or pedal edema Respiratory: No SOB, cough, wheezing Gastrointestinal: No nausea, vomiting, + loose stools, no constipation, abdominal pain, or difficulty swallowing Genitourinary: No dysuria, incontinence, urgency, hematuria or increased urinary frequency Physical Exam Constitutional: + thin and cooperative; no acute distress non-toxic appearing Eyes: + conjunctival abnormality (pallor) Respiratory: normal respiratory effort, lungs clear to auscultation Auscultation: no crackles, no rales and no egophony Cardiovascular: Rate/Rhythm: regular rate and regular rhythm Heart Sounds: normal S1, normal S2 and + murmur (systolic ejection; 3/6) Gastrointestinal (Abdomen): Inspection/Auscultation: + abdomen distended and normal bowel sounds Percussion/Palpation: + abdomen firm (throughout ); abdomen nontender and no ascites Neurologic: awake Psychiatric: Orientation: oriented x 3 Results & Data Vital Signs (Past 12 Hours) Vital Signs Temp Pulse Pulse Resp BP BP Pulse Ox 12/15/18 07:39 36.7 C 73 18 95/60 L 97 12/15/18 02:44 36.7 C 75 18 106/65 96 12/15/18 01:13 84 20 93/48 L 93 12/15/18 00:31 82 21 112/56 L 95 12/15/18 00:00 84 21 107/62 96 12/14/18 23:31 85 22 109/60 94 12/14/18 23:00 27 H 122/66 97 12/14/18 22:41 94 12/14/18 22:40 88 24 89 L 12/14/18 22:30 37.0 C 85 21 107/65 90 12/14/18 22:20 87 21 91 12/14/18 22:10 90 21 90 12/14/18 22:00 93 H 23 103/51 L 91 12/14/18 21:50 98 H 28 H 90 12/14/18 21:40 90 22 12/14/18 21:34 92 H 24 110/58 L 90 12/14/18 21:30 94 H 17 93 12/14/18 21:20 91 H 20 91 12/14/18 21:10 91 H 15 91 12/14/18 21:00 90 18 92 12/14/18 20:50 91 H 17 93 12/14/18 20:46 91 H 15 Laboratory Results 12/15/18 12/15/18 12/15/18 Range/Units 17:08 17:00 12:05 WBC (4.8-10.8) K/uL RBC (4.2-5.4) M/uL Hgb (12.0-16.0) g/dL Hct (37-47) % MCV (80-100) fL MCH (25-34) pg MCHC (32-36) g/dL RDW Std Deviation (36.4-46.3) fL RDW Coeff of Adan (11.5-14.5) % Plt Count (130-400) K/uL MPV (7.4-10.4) fL Immature Gran % (Auto) % Neut % (Auto) % Lymph % (Auto) % [place] % (Auto) % Eos % (Auto) % Baso % (Auto) % Immature Gran # (Auto) (0.00-0.02) K/uL Neut # (Auto) (1.4-6.5) K/uL Lymph # (Auto) (1.2-3.4) K/uL Atlantic # (Auto) (0.11-0.59) K/uL Eos # (Auto) (0-0.5) K/uL Baso # (Auto) (0-0.2) K/uL Platelet Estimate (Normal) Tear Drop Cells Ovalocytes Echinocytes ESR (0-21) mm/hr PT (9.0-12.0) Seconds INR (0.9-1.1) APTT (21.0-31.0) Seconds PTT Ratio Sodium (136-145) mmol/L Potassium (3.5-5.1) mmol/L Chloride (98-107) mmol/L Carbon Dioxide (21-32) mmol/L Anion Gap (3-11) BUN (7-18) mg/dl Creatinine (0.6-1.2) mg/dl Est Cr Clr Drug Dosing ml/min Est GFR ( Amer) Est GFR (Non-Af Amer) BUN/Creatinine Ratio (10-20) Glucose (70-99) mg/dl POC Glucose 153 H (70-99) Lactate (0.4-2.0) mmol/L Calcium (8.5-10.1) mg/dl Magnesium (1.8-2.4) mg/dl Total Bilirubin (0.2-1) mg/dl AST (15-37) U/L ALT (12-78) U/L Alkaline Phosphatase (45-117) U/L Troponin I (0-0.045) ng/ml C-Reactive Protein (0-0.29) mg/dl Total Protein (6.4-8.2) gm/dl Albumin (3.4-5.0) gm/dl Globulin (2.5-4.0) gm/dl Albumin/Globulin Ratio (0.9-2) Procalcitonin (0-0.5) ng/ml Urine Color Urine Appearance (Clear) Urine pH (4.5-7.5) Ur Specific [place] (1.000-1.030) Urine Protein (Negative) Urine Glucose (UA) (Negative) Urine Ketones (Negative) Urine Blood (Negative) Urine Nitrite (Negative) Urine Bilirubin (Negative) Urine Urobilinogen (Negative) Ur Leukocyte Esterase (Negative) Urine WBC (Auto) (0-5) /hpf Urine RBC (Auto) (0-4) /hpf U Hyaline Cast (Auto) (0-5) /lpf U Epithel Cells (Auto) (0-5) /lpf Urine Bacteria (Auto) (Negative) Urine Yeast (None Prsent) Nasal Screen MRSA (PCR) Pending Influenza Type A Ag Pending Influenza Type A (PCR) Neg for Influ A (Neg) Influenza Type B Ag Pending Influenza Type B (PCR) Neg for Influ B (Neg) 12/15/18 12/15/18 12/15/18 Range/Units 07:58 05:35 05:35 WBC 8.11 (4.8-10.8) K/uL RBC 2.30 L (4.2-5.4) M/uL Hgb 7.9 L (12.0-16.0) g/dL Hct 23.0 L (37-47) % MCV 100.0 (80-100) fL MCH 34.3 H (25-34) pg MCHC 34.3 (32-36) g/dL RDW Std Deviation 52.1 H (36.4-46.3) fL RDW Coeff of Adan 14.5 (11.5-14.5) % Plt Count 88 L (130-400) K/uL MPV 9.5 (7.4-10.4) fL Immature Gran % (Auto) 0.2 % Neut % (Auto) 90.3 % Lymph % (Auto) 5.2 % Atlantic % (Auto) 4.3 % Eos % (Auto) 0.0 % Baso % (Auto) 0.0 % Immature Gran # (Auto) 0.02 (0.00-0.02) K/uL Neut # (Auto) 7.32 H (1.4-6.5) K/uL Lymph # (Auto) 0.42 L (1.2-3.4) K/uL Atlantic # (Auto) 0.35 (0.11-0.59) K/uL Eos # (Auto) 0.00 (0-0.5) K/uL Baso # (Auto) 0.00 (0-0.2) K/uL Platelet Estimate Decreased L (Normal) Tear Drop Cells 1+ Ovalocytes 1+ Echinocytes 1+ ESR (0-21) mm/hr PT (9.0-12.0) Seconds INR (0.9-1.1) APTT (21.0-31.0) Seconds PTT Ratio Sodium 138 (136-145) mmol/L Potassium 3.9 (3.5-5.1) mmol/L Chloride 108 H (98-107) mmol/L Carbon Dioxide 24 (21-32) mmol/L Anion Gap 6.0 (3-11) BUN 43 H (7-18) mg/dl Creatinine 2.23 H (0.6-1.2) mg/dl Est Cr Clr Drug Dosing 18.9 ml/min Est GFR ( Amer) 22.1 Est GFR (Non-Af Amer) 19.1 BUN/Creatinine Ratio 19.1 (10-20) Glucose 160 H (70-99) mg/dl POC Glucose 159 H (70-99) Lactate (0.4-2.0) mmol/L Calcium 7.9 L (8.5-10.1) mg/dl Magnesium (1.8-2.4) mg/dl Total Bilirubin (0.2-1) mg/dl AST (15-37) U/L ALT (12-78) U/L Alkaline Phosphatase (45-117) U/L Troponin I (0-0.045) ng/ml C-Reactive Protein (0-0.29) mg/dl Total Protein (6.4-8.2) gm/dl Albumin (3.4-5.0) gm/dl Globulin (2.5-4.0) gm/dl Albumin/Globulin Ratio (0.9-2) Procalcitonin (0-0.5) ng/ml Urine Color Urine Appearance (Clear) Urine pH (4.5-7.5) Ur Specific [place] (1.000-1.030) Urine Protein (Negative) Urine Glucose (UA) (Negative) Urine Ketones (Negative) Urine Blood (Negative) Urine Nitrite (Negative) Urine Bilirubin (Negative) Urine Urobilinogen (Negative) Ur Leukocyte Esterase (Negative) Urine WBC (Auto) (0-5) /hpf Urine RBC (Auto) (0-4) /hpf U Hyaline Cast (Auto) (0-5) /lpf U Epithel Cells (Auto) (0-5) /lpf Urine Bacteria (Auto) (Negative) Urine Yeast (None Prsent) Nasal Screen MRSA (PCR) Influenza Type A Ag Influenza Type A (PCR) (Neg) Influenza Type B Ag Influenza Type B (PCR) (Neg) 12/14/18 12/14/18 12/14/18 Range/Units 21:50 20:56 20:56 WBC (4.8-10.8) K/uL RBC (4.2-5.4) M/uL Hgb (12.0-16.0) g/dL Hct (37-47) % MCV (80-100) fL MCH (25-34) pg MCHC (32-36) g/dL RDW Std Deviation (36.4-46.3) fL RDW Coeff of Adan (11.5-14.5) % Plt Count (130-400) K/uL MPV (7.4-10.4) fL Immature Gran % (Auto) % Neut % (Auto) % Lymph % (Auto) % Atlantic % (Auto) % Eos % (Auto) % Baso % (Auto) % Immature Gran # (Auto) (0.00-0.02) K/uL Neut # (Auto) (1.4-6.5) K/uL Lymph # (Auto) (1.2-3.4) K/uL Atlantic # (Auto) (0.11-0.59) K/uL Eos # (Auto) (0-0.5) K/uL Baso # (Auto) (0-0.2) K/uL Platelet Estimate (Normal) Tear Drop Cells Ovalocytes Echinocytes ESR (0-21) mm/hr PT (9.0-12.0) Seconds INR (0.9-1.1) APTT (21.0-31.0) Seconds PTT Ratio Sodium (136-145) mmol/L Potassium (3.5-5.1) mmol/L Chloride (98-107) mmol/L Carbon Dioxide (21-32) mmol/L Anion Gap (3-11) BUN (7-18) mg/dl Creatinine (0.6-1.2) mg/dl Est Cr Clr Drug Dosing ml/min Est GFR ( Amer) Est GFR (Non-Af Amer) BUN/Creatinine Ratio (10-20) Glucose (70-99) mg/dl POC Glucose (70-99) Lactate 1.2 (0.4-2.0) mmol/L Calcium (8.5-10.1) mg/dl Magnesium (1.8-2.4) mg/dl Total Bilirubin (0.2-1) mg/dl AST (15-37) U/L ALT (12-78) U/L Alkaline Phosphatase (45-117) U/L Troponin I (0-0.045) ng/ml C-Reactive Protein (0-0.29) mg/dl Total Protein (6.4-8.2) gm/dl Albumin (3.4-5.0) gm/dl Globulin (2.5-4.0) gm/dl Albumin/Globulin Ratio (0.9-2) Procalcitonin 5.25 H (0-0.5) ng/ml Urine Color Yellow Urine Appearance Turbid A (Clear) Urine pH 5.0 (4.5-7.5) Ur Specific [place] 1.017 (1.000-1.030) Urine Protein 2+ H (Negative) Urine Glucose (UA) Negative (Negative) Urine Ketones Trace H (Negative) Urine Blood 1+ H (Negative) Urine Nitrite Negative (Negative) Urine Bilirubin Negative (Negative) Urine Urobilinogen Negative (Negative) Ur Leukocyte Esterase 2+ H (Negative) Urine WBC (Auto) >30 H (0-5) /hpf Urine RBC (Auto) 0-4 (0-4) /hpf U Hyaline Cast (Auto) 10-30 H (0-5) /lpf U Epithel Cells (Auto) >30 H (0-5) /lpf Urine Bacteria (Auto) 4+ H (Negative) Urine Yeast Present A (None Prsent) Nasal Screen MRSA (PCR) Influenza Type A Ag Influenza Type A (PCR) (Neg) Influenza Type B Ag Influenza Type B (PCR) (Neg) 12/14/18 12/14/18 12/14/18 Range/Units 20:56 20:56 20:55 WBC (4.8-10.8) K/uL RBC (4.2-5.4) M/uL Hgb (12.0-16.0) g/dL Hct (37-47) % MCV (80-100) fL MCH (25-34) pg MCHC (32-36) g/dL RDW Std Deviation (36.4-46.3) fL RDW Coeff of Adan (11.5-14.5) % Plt Count (130-400) K/uL MPV (7.4-10.4) fL Immature Gran % (Auto) % Neut % (Auto) % Lymph % (Auto) % Atlantic % (Auto) % Eos % (Auto) % Baso % (Auto) % Immature Gran # (Auto) (0.00-0.02) K/uL Neut # (Auto) (1.4-6.5) K/uL Lymph # (Auto) (1.2-3.4) K/uL Atlantic # (Auto) (0.11-0.59) K/uL Eos # (Auto) (0-0.5) K/uL Baso # (Auto) (0-0.2) K/uL Platelet Estimate (Normal) Tear Drop Cells Ovalocytes Echinocytes ESR 63 H (0-21) mm/hr PT 11.0 (9.0-12.0) Seconds INR 1.1 (0.9-1.1) APTT 24.5 (21.0-31.0) Seconds PTT Ratio 0.9 Sodium 135 L (136-145) mmol/L Potassium 3.8 (3.5-5.1) mmol/L Chloride 105 (98-107) mmol/L Carbon Dioxide 23 (21-32) mmol/L Anion Gap 8.0 (3-11) BUN 42 H (7-18) mg/dl Creatinine 2.11 H D (0.6-1.2) mg/dl Est Cr Clr Drug Dosing 19.9 ml/min Est GFR ( Amer) 23.6 Est GFR (Non-Af Amer) 20.4 BUN/Creatinine Ratio 20.1 H (10-20) Glucose 217 H (70-99) mg/dl POC Glucose (70-99) Lactate (0.4-2.0) mmol/L Calcium 8.4 L (8.5-10.1) mg/dl Magnesium 1.8 (1.8-2.4) mg/dl Total Bilirubin 0.7 (0.2-1) mg/dl AST 16 (15-37) U/L ALT 10 L (12-78) U/L Alkaline Phosphatase 45 (45-117) U/L Troponin I 0.030 (0-0.045) ng/ml C-Reactive Protein 12.50 H (0-0.29) mg/dl Total Protein 5.7 L (6.4-8.2) gm/dl Albumin 2.3 L (3.4-5.0) gm/dl Globulin 3.4 (2.5-4.0) gm/dl Albumin/Globulin Ratio 0.7 L (0.9-2) Procalcitonin (0-0.5) ng/ml Urine Color Urine Appearance (Clear) Urine pH (4.5-7.5) Ur Specific [place] (1.000-1.030) Urine Protein (Negative) Urine Glucose (UA) (Negative) Urine Ketones (Negative) Urine Blood (Negative) Urine Nitrite (Negative) Urine Bilirubin (Negative) Urine Urobilinogen (Negative) Ur Leukocyte Esterase (Negative) Urine WBC (Auto) (0-5) /hpf Urine RBC (Auto) (0-4) /hpf U Hyaline Cast (Auto) (0-5) /lpf U Epithel Cells (Auto) (0-5) /lpf Urine Bacteria (Auto) (Negative) Urine Yeast (None Prsent) Nasal Screen MRSA (PCR) Influenza Type A Ag Influenza Type A (PCR) (Neg) Influenza Type B Ag Influenza Type B (PCR) (Neg) 12/14/18 Range/Units 20:49 WBC 10.10 (4.8-10.8) K/uL RBC 2.64 L (4.2-5.4) M/uL Hgb 9.1 L (12.0-16.0) g/dL Hct 26.6 L (37-47) % MCV 100.8 H (80-100) fL MCH 34.5 H (25-34) pg MCHC 34.2 (32-36) g/dL RDW Std Deviation 53.2 H (36.4-46.3) fL RDW Coeff of Adan 14.4 (11.5-14.5) % Plt Count 100 L (130-400) K/uL MPV 9.6 (7.4-10.4) fL Immature Gran % (Auto) 0.4 % Neut % (Auto) 91.7 % Lymph % (Auto) 2.6 % Atlantic % (Auto) 5.0 % Eos % (Auto) 0.2 % Baso % (Auto) 0.1 % Immature Gran # (Auto) 0.04 H (0.00-0.02) K/uL Neut # (Auto) 9.27 H (1.4-6.5) K/uL Lymph # (Auto) 0.26 L (1.2-3.4) K/uL Atlantic # (Auto) 0.50 (0.11-0.59) K/uL Eos # (Auto) 0.02 (0-0.5) K/uL Baso # (Auto) 0.01 (0-0.2) K/uL Platelet Estimate (Normal) Tear Drop Cells Ovalocytes Echinocytes ESR (0-21) mm/hr PT (9.0-12.0) Seconds INR (0.9-1.1) APTT (21.0-31.0) Seconds PTT Ratio Sodium (136-145) mmol/L Potassium (3.5-5.1) mmol/L Chloride (98-107) mmol/L Carbon Dioxide (21-32) mmol/L Anion Gap (3-11) BUN (7-18) mg/dl Creatinine (0.6-1.2) mg/dl Est Cr Clr Drug Dosing ml/min Est GFR ( Amer) Est GFR (Non-Af Amer) BUN/Creatinine Ratio (10-20) Glucose (70-99) mg/dl POC Glucose (70-99) Lactate (0.4-2.0) mmol/L Calcium (8.5-10.1) mg/dl Magnesium (1.8-2.4) mg/dl Total Bilirubin (0.2-1) mg/dl AST (15-37) U/L ALT (12-78) U/L Alkaline Phosphatase (45-117) U/L Troponin I (0-0.045) ng/ml C-Reactive Protein (0-0.29) mg/dl Total Protein (6.4-8.2) gm/dl Albumin (3.4-5.0) gm/dl Globulin (2.5-4.0) gm/dl Albumin/Globulin Ratio (0.9-2) Procalcitonin (0-0.5) ng/ml Urine Color Urine Appearance (Clear) Urine pH (4.5-7.5) Ur Specific [place] (1.000-1.030) Urine Protein (Negative) Urine Glucose (UA) (Negative) Urine Ketones (Negative) Urine Blood (Negative) Urine Nitrite (Negative) Urine Bilirubin (Negative) Urine Urobilinogen (Negative) Ur Leukocyte Esterase (Negative) Urine WBC (Auto) (0-5) /hpf Urine RBC (Auto) (0-4) /hpf U Hyaline Cast (Auto) (0-5) /lpf U Epithel Cells (Auto) (0-5) /lpf Urine Bacteria (Auto) (Negative) Urine Yeast (None Prsent) Nasal Screen MRSA (PCR) Influenza Type A Ag Influenza Type A (PCR) (Neg) Influenza Type B Ag Influenza Type B (PCR) (Neg) Medications Administered Current Inpatient Medications Acetaminophen (Tylenol) 650 mg PO Q4H PRN PRN Reason: Pain or Fever Stop: 01/14/19 01:32 Al Hydrox/Mg Hydrox/Simethicone (Maalox) 15 ml PO Q4H PRN PRN Reason: Dyspepsia Stop: 01/14/19 01:32 Sodium Chloride (Nss 1000ml) 1,000 mls @ 80 mls/hr IV .[id number] [facility] Stop: 12/16/18 01:32 Last Admin: 12/15/18 14:47 Dose: 80 mls/hr Documented by: Piperacillin Sod/Tazobactam (Sod 3.375 gm/ Dextrose) 115 mls @ 28.75 mls/hr IV Q12H [facility]; Protocol Stop: 12/22/18 07:59 Last Infusion: 12/15/18 13:07 Dose: Infused Documented by: Magnesium Hydroxide (Milk Of Magnesia) 30 ml PO Q12H PRN PRN Reason: Constipation Stop: 01/14/19 01:32 Miscellaneous Information (Consult) 1 ea N/A UD PRN PRN Reason: Consult Stop: 01/13/19 22:10 Miscellaneous Information (Consult) 1 ea N/A UD PRN PRN Reason: Consult Stop: 01/14/19 01:32 Ondansetron HCl (Zofran) 4 mg IV Q6H PRN PRN Reason: Nausea Stop: 01/14/19 01:32 Pantoprazole Sodium (Protonix) 40 mg PO QAM [facility] Stop: 01/14/19 08:59 Last Admin: 12/15/18 08:22 Dose: 40 mg Documented by: Polyethylene Glycol (Miralax Powder Packet) 17 gm PO DAILY PRN PRN Reason: Constipation Stop: 01/14/19 01:32 PG Care Time/CCT Total # of Minutes Spent Total Time Spent with Patient: Total time spent is greater than 50% in coordination of care (as documented) at patient's floor/unit and/or counseling patient: Resident Activity Tracking Resident Involvement: Resident Care Provided Care Provided: Adult Hospital Medicine (1) Fever Fever type: unspecified Qualified Code(s): R50.9 - Fever, unspecified
--- NOTE | 2018-12-15 11:56 | Pharmacy Report ---
Pharmacy Abx Initial Consult - Date of Service December 15, 2018 - Pharmacy Dosing Scope Date of Consult: 12/14/18 Consultation requested by: Dr. Rubio Pharmacy is consulted to initiate Vancomycin and Zosyn IV dosing therapy, order appropriate labs and adjust drug dose/frequency. - Subjective The patient is a 88 year old F admitted on 12/14/18 23:50. - Objective Height: 5 ft 10 in Weight: 78.2 kg Vital Signs (Past 12hrs): Vital Signs Temp Pulse Pulse Resp BP BP Pulse Ox 12/15/18 07:39 36.7 C 73 18 95/60 L 97 12/15/18 02:44 36.7 C 75 18 106/65 96 12/15/18 01:13 84 20 93/48 L 93 12/15/18 00:31 82 21 112/56 L 95 12/15/18 00:00 84 21 107/62 96 Lab Results (24hrs): Laboratory Tests (24 Hours) 12/15/18 12/15/18 12/14/18 05:35 05:35 20:56 WBC 8.11 Neut # (Auto) 7.32 H ESR Creatinine 2.23 H Est Cr Clr Drug Dosing 18.9 C-Reactive Protein Procalcitonin 5.25 H 12/14/18 12/14/18 12/14/18 20:56 20:56 20:49 WBC 10.10 Neut # (Auto) 9.27 H ESR 63 H Creatinine 2.11 H D Est Cr Clr Drug Dosing 19.9 C-Reactive Protein 12.50 H Procalcitonin Micro Results: Microbiology 12/14/18 21:50 Urine,Clean Catch Urine Culture - Preliminary Gram negative bacilli 12/14/18 21:55 Blood Blood Culture Aerobic - Pending Anaerobic - Pending 12/14/18 21:15 Blood Blood Culture Aerobic - Pending Anaerobic - Pending - Risk Factors for Resistance * Immunocompromised (chemotherapy) - Assessment & Plan Assessment 88 year old F started on IV Vancomycin and Zosyn for respiratory vs GI vs UTI Pertinent PMH includes Ovarian cancer with active chemotherapy (last treatment 12/15) Serum creatinine far worse when compared to baseline (2.23 vs 0.9, respectively) Plan IV Vancomycin and Zosyn for treatment of Respiratory vs UTI Vancomycin IV * Estimated PK Parameters: Vd 0.7 L/kg, [place] 0.020 hr-1, t1/2 ~35 hr * Loading dose: 1500 mg (19 mg/kg) * Will wait to order maintenance dose until random level returns tomorrow AM * Goal trough level for pneumonia/UTI: 15 to 20 mcg/mL * Random level ordered for 12/16/18 with AM labs given patients current kidney function Piperacillin/tazobactam * 4.5 g bolus administered over 30 minutes, then 3.375 g IV extended infusion every 12 hours for CrCl 20 mL/min or less Pharmacy will continue to follow and will adjust dose/frequency as necessary. Thank you.
[2018-12-15 18:20] LABS: Influenza A virus by PCR Neg for Influ A (Neg); Influenza B virus by PCR Neg for Influ B (Neg)
[2018-12-16] MEDS: ACETAMINOPHEN 325 MG TAB PO PRN (06:52)
[2018-12-16 07:05] LABS: BUN Creatinine Ratio 17.8 (10-20); Calcium 7.6 mg/dl (8.5-10.1); Creatinine Clr Calc Pharmacy 17.3 ml/min; Est GFR (Non-African American) 15.5; Potassium 3.9 mmol/L (3.5-5.1)
[2018-12-16] MEDS ORDERED: VANCOMYCIN HCL 1,000 MG in SODIUM CHLORIDE 0.9% 250 ML IV ONE (08:00)
[2018-12-16] MEDS: PIPERACILLIN/TAZOBACTAM 3.375 GM in DEXTROSE 5% 100 ML IV SCH (08:53)
[2018-12-16] MEDS: PANTOprazole 40 MG TAB PO SCH (08:54)
[2018-12-16] MEDS ORDERED: LACTATED RINGER'S 1,000 ML IV ONE (09:31)
[2018-12-16] MEDS: SODIUM CHLOR 0.45% + 20MEQ KCL 20 MEQ/1,000 ML BAG IV SCH (12:29)
[2018-12-16] MEDS: AMOXICILLIN/CLAVULANATE 500 MG TAB PO SCH (17:18)
--- NOTE | 2018-12-16 17:28 | Family Medicine Progress Note ---
Date of Service December 16, 2018 Assessment & Plan (1) Weakness: Ms. Tse is an 88-year-old female with ovarian cancer on chemo who was admitted on 12/14 for weakness with a CXR showing a mass suspicious for RLL PNA and UA concerning for UTI. Weakness -etiology unknown, possibly multifactorial -on chemotherapy -urinary vs pulmonary infectious source FEN/GI: regular diet. NSS @ 80 ml/hr x 1 day. DVT ppx: Bilateral SCDs. Will hold off on pharmacologic prophylaxis given low cell lines (secondary to chemo) CODE STATUS: FULL DISPO: Med/surg (2) PNA (pneumonia): -CXR on admission showing consolidation concerning for PNA -MSRA nasal PCR negative -discontinued vancomycin (12/16) -no WBC count -febrile on arrival to ED (3) Acute UTI: -UA positive on admission -Culture shows Klebsiella growth -discontinued zosyn and started Augmentin 500mg (renal dosing); PO, BID -2/2 blood cultures show no preliminary growth (4) Acute kidney injury: -Cr 2.64 up from 2.23 on 12/15; baseline near 1.0 -BUN/Cr = 19 -etiology likely prerenal, although intrarenal (ATN) may also be a contributor -IVF fell off overnight; restarted this AM: 1 bolus of LR, 1/2 normal saline with 20mEq of KCL for maintenance at 80mls/hr -continue to monitor with daily BMPs -renal dosing of meds as appropriate -Vancomycin/zosyn combo (increased risk of nephrotoxicity)was discontinued today (12/16) -Augmentin initiated at 500mg dose (renal dosing) -holding home lisinopril (5) Fever: -antipyretics prn -afebrile today 12/15 (6) Hypoxia: -satting 93 on 2L NC (7) CRP elevated: in setting of active chemotherapy now with infection (8) Elevated procalcitonin: in setting of active chemotherapy now with infection (9) Ovarian ca: -Follows with Dr. Silva; gets chemotherapy weekly for 2/month. - received treatment on the morning of admission 12/15. -monitor for developing neutropenia (WBC normal today 12/15) (10) Loose stools: -patient reports baseline constipation -possible etiologies: c.diff vs. constipation induced -unlikely secondary to C.diff given normal WBC count; patient reports slightly formed stool since admission -ordered miralax TID (11) Macrocytic anemia: in the setting of chemotherapy pt Supervising Physician Co-Signing Physician Notes I personally examined the patient and verified all zuniga points of history and exam, discussed case, and agree with decision making with Dr Siddiqui. Generally feeling better overall, although no significant bowel movements yet Vitals noted, in general she is awake and alert pleasant no distress. HEENT normocephalic atraumatic mucous members moist. Breathing unlabored no accessory muscle use good effort. Skin shows no rashes no pallor or icterus. No focal neuro deficits. Weaknessappears to be due to sepsis. Improving. PT/OT eval and treat, hopefully she will be able to go home. Sepsisseems to be related to pneumonia versus urine versus both. Given her rapid improvement and urine culture showing overall sensitive bacteria, we will narrow her antibiotic coverage to p.o. Augmentin. DVT prophylaxispharmacologic is fairly risky given her low counts (low counts likely related to chemotherapy). She does have mechanical DVT prophylaxis in place (appears to be fairly low risk for skin breakdown or falls) and she is working on being more ambulatory. Diarrheahistory of chronic constipation, KUB with fecal load, physical exam with a degree of distention all point towards a degree of constipation with overflow diarrhea. Continue gentle bowel regimen (not wanting to induce further dehydration, but definitely wanting to move bowels so that her appetite improves), although if she continues to not have much of a significant bowel movement dosing Acute renal failureappears to be hypovolemia/sepsis mediated, hopefully all prerenal. Did not improve with fluids, although fluids were a bit gentle. Check fractional excretion of sodium, more aggressive fluids, continue to follow. Sepsis secondary to UTI/pneumonia, POA, resolved - likely was largely contributory to her weakness, see above otherwise Subjective resting comfortably in bed. She is feeling well. Denies any abdominal symptoms or urinary symptoms. Says her breathing is good. Review of Systems Review of Systems: Constitutional: No fevers, chills, night sweats Cardiovascular: No chest pain, palpitations or pedal edema Respiratory: No SOB, cough, wheezing Gastrointestinal: No nausea, vomiting, no constipation or diarrhea, abdominal pain, or difficulty swallowing Genitourinary: No dysuria, urgency, or hematuria but is incontinent with increased urinary frequency Physical Exam Constitutional: + thin and cooperative; no acute distress Eyes: + conjunctival abnormality (pallor) Respiratory: normal respiratory effort, lungs clear to auscultation Auscultation: no crackles, no rales and no egophony Cardiovascular: Rate/Rhythm: regular rate and regular rhythm Heart Sounds: normal S1, normal S2 and + murmur (systolic ejection; 3/6) Gastrointestinal (Abdomen): Inspection/Auscultation: + abdomen distended and normal bowel sounds Percussion/Palpation: + abdomen firm (throughout ); abdomen nontender and no ascites Neurologic: awake Psychiatric: Orientation: oriented x 3 Results & Data Vital Signs (Past 12 Hours) Vital Signs Temp Pulse Resp BP Pulse Ox 12/16/18 15:24 36.9 C 94 H 18 90 12/16/18 07:50 37.2 C 69 18 99/62 L 94 Laboratory Results 12/16/18 12/16/18 12/16/18 Range/Units 16:54 05:42 05:42 Sodium 138 (136-145) mmol/L Potassium 3.9 (3.5-5.1) mmol/L Chloride 109 H (98-107) mmol/L Carbon Dioxide 21 (21-32) mmol/L Anion Gap 8.0 (3-11) BUN 47 H (7-18) mg/dl Creatinine 2.64 H D (0.6-1.2) mg/dl Est Cr Clr Drug Dosing 17.3 ml/min Est GFR ( Amer) 18.0 Est GFR (Non-Af Amer) 15.5 BUN/Creatinine Ratio 17.8 (10-20) Glucose 131 H (70-99) mg/dl POC Glucose 145 H (70-99) Calcium 7.6 L (8.5-10.1) mg/dl Nasal Screen MRSA (PCR) (Negative) Random Vancomycin 11.8 mcg/ml Influenza Type A Ag (Neg) Influenza Type A (PCR) (Neg) Influenza Type B Ag (Neg) Influenza Type B (PCR) (Neg) 12/15/18 12/15/18 Range/Units 17:08 17:00 Sodium (136-145) mmol/L Potassium (3.5-5.1) mmol/L Chloride (98-107) mmol/L Carbon Dioxide (21-32) mmol/L Anion Gap (3-11) BUN (7-18) mg/dl Creatinine (0.6-1.2) mg/dl Est Cr Clr Drug Dosing ml/min Est GFR ( Amer) Est GFR (Non-Af Amer) BUN/Creatinine Ratio (10-20) Glucose (70-99) mg/dl POC Glucose (70-99) Calcium (8.5-10.1) mg/dl Nasal Screen MRSA (PCR) Negative (Negative) Random Vancomycin mcg/ml Influenza Type A Ag Neg for Influ A (Neg) Influenza Type A (PCR) Neg for Influ A (Neg) Influenza Type B Ag Neg for Influ B (Neg) Influenza Type B (PCR) Neg for Influ B (Neg) Medications Administered Current Inpatient Medications Acetaminophen (Tylenol) 650 mg PO Q4H PRN PRN Reason: Pain or Fever Stop: 01/14/19 01:32 Last Admin: 12/16/18 06:52 Dose: 650 mg Documented by: Al Hydrox/Mg Hydrox/Simethicone (Maalox) 15 ml PO Q4H PRN PRN Reason: Dyspepsia Stop: 01/14/19 01:32 Amoxicillin/Clavulanate Potassium (Augmentin 500mg) 1 tab PO BIDM [facility] Stop: 12/26/18 16:59 Last Admin: 12/16/18 17:18 Dose: 1 tab Documented by: Potassium Chloride/Sodium Chloride (1/2 Nss + 20meq Kcl 1000ml) 20 meq in 1,000 mls @ 80 mls/hr IV .[id number] [facility] Stop: 01/15/19 09:44 Last Admin: 12/16/18 12:29 Dose: 80 mls/hr Documented by: Magnesium Hydroxide (Milk Of Magnesia) 30 ml PO Q12H PRN PRN Reason: Constipation Stop: 01/14/19 01:32 Ondansetron HCl (Zofran) 4 mg IV Q6H PRN PRN Reason: Nausea Stop: 01/14/19 01:32 Pantoprazole Sodium (Protonix) 40 mg PO QAM [facility] Stop: 01/14/19 08:59 Last Admin: 12/16/18 08:54 Dose: 40 mg Documented by: Polyethylene Glycol (Miralax Powder Packet) 17 gm PO DAILY PRN PRN Reason: Constipation Stop: 01/14/19 01:32 PG Care Time/CCT Total # of Minutes Spent Total Time Spent with Patient: Total time spent is greater than 50% in coordination of care (as documented) at patient's floor/unit and/or counseling patient: Resident Activity Tracking Resident Involvement: Resident Care Provided Care Provided: Adult Hospital Medicine (1) Fever Fever type: unspecified Qualified Code(s): R50.9 - Fever, unspecified
[2018-12-17] MEDS: SODIUM CHLOR 0.45% + 20MEQ KCL 20 MEQ/1,000 ML BAG IV SCH ×2 (00:31→14:02)
[2018-12-17 06:19] LABS: Basophils # (auto) 0.01 K/uL (0-0.2); Basophils % (auto) 0.1 %; Eosinophils # (auto) 0.07 K/uL (0-0.5); Eosinophils % (auto) 0.7 %; Hematocrit (blood only) 23.3 % (37-47); Hemoglobin 7.9 g/dL (12.0-16.0); Immature Granulocytes # (auto) 0.03 K/uL (0.00-0.02); Immature Granulocytes % (auto) 0.3 %; Lymphocytes # (auto) 0.36 K/uL (1.2-3.4); Lymphocytes % (auto) 3.8 %; Mean Corpuscular Hgb Conc 33.9 g/dL (32-36); Mean Corpuscular Volume 100.4 fL (80-100); Mean Platelet Volume 9.6 fL (7.4-10.4); Monocytes # (auto) 0.03 K/uL (0.11-0.59); Monocytes % (auto) 0.3 %; Neutrophils # (auto) 8.96 K/uL (1.4-6.5); Neutrophils % (auto) 94.8 %; Platelet Count 100 K/uL (130-400); RDW Coefficient of Variation 14.7 % (11.5-14.5); RDW Standard Deviation 54.3 fL (36.4-46.3); Red Blood Count 2.32 M/uL (4.2-5.4); White Blood Count 9.46 K/uL (4.8-10.8)
[2018-12-17 06:53] LABS: Acanthocytes 1+; Echinocytes 2+
[2018-12-17 06:59] LABS: BUN Creatinine Ratio 19.8 (10-20); Calcium 7.7 mg/dl (8.5-10.1); Creatinine Clr Calc Pharmacy 17.9 ml/min; Est GFR (African American) 18.8; Est GFR (Non-African American) 16.2; Potassium 4.2 mmol/L (3.5-5.1)
[2018-12-17] MEDS: AMOXICILLIN/CLAVULANATE 500 MG TAB PO SCH ×2 (08:54→17:17)
[2018-12-17] MEDS: PANTOprazole 40 MG TAB PO SCH (08:54)
[2018-12-17] MEDS: POLYETHYLENE (MIRALAX) 17 GM PACK PO PRN (09:10)
--- NOTE | 2018-12-17 17:23 | Family Medicine Progress Note ---
Date of Service December 17, 2018 Assessment & Plan (1) Weakness: Ms. Tse is an 88-year-old female with ovarian cancer on chemo who was admitted on 12/14 for weakness with a CXR showing a mass suspicious for RLL PNA and UA concerning for UTI. Weakness -etiology unknown, possibly multifactorial -feels like she would not be physically equipped to handle being home by herself if discharged today -on chemotherapy -urinary vs pulmonary infectious source; on antibiotic therapy -continue PT/OT (2) PNA (pneumonia): -CXR on admission showing consolidation concerning for PNA -MSRA nasal PCR negative -discontinued vancomycin (12/16) -on oral augmentin (renal dosing) -no WBC count -febrile on arrival to ED (3) Acute UTI: -UA positive on admission -Culture shows Klebsiella growth -discontinued zosyn and started Augmentin 500mg (renal dosing); PO, BID -2/2 blood cultures show no growth through 48 hours (4) Acute kidney injury: -Cr 2.55 down from 2.64 12/16; baseline near 1.0 -BUN/Cr = 19 -ordered Urine Cr and Urine Na; not yet collected -etiology likely prerenal, although intrarenal (ATN) may also be a contributor -IVF: 1/2 normal saline with 20mEq of KCL for maintenance at 80mls/hr -continue to monitor with daily BMPs -renal dosing of meds as appropriate -Vancomycin/zosyn combo (increased risk of nephrotoxicity)was discontinued -Augmentin initiated at 500mg dose (renal dosing) -holding home lisinopril (5) Fever: -antipyretics prn -afebrile today 12/17 (6) Hypoxia: -satting 96 on 2L NC (7) CRP elevated: in setting of active chemotherapy now with infection (8) Elevated procalcitonin: in setting of active chemotherapy now with infection (9) Ovarian ca: -Follows with Dr. Silva; gets chemotherapy weekly for 2/month. - received treatment on the morning of admission 12/15. -monitor for developing neutropenia (WBC normal today 12/17) (10) Loose stools: -patient reports baseline constipation -etiology likely constipation induced -miralax daily (11) Macrocytic anemia: -likely attributable to chemo FEN/GI: regular diet. NSS @ 80 ml/hr x 1 day. DVT ppx: Bilateral SCDs. Will hold off on pharmacologic prophylaxis given low cell lines (secondary to chemo) CODE STATUS: FULL DISPO: Med/surg; likely looking towards placement in a SNF on Thursday (OT recommendation) Supervising Physician Co-Signing Physician Notes I personally examined the patient and verified all zuniga points of history and exam, discussed case, and agree with decision making with Dr Siddiqui. Notes that she is started feeling significantly weaker. Unfortunately therapy notes also corroborate this. Vitals noted, in general she is awake and alert pleasant no distress. HEENT normocephalic atraumatic mucous members moist. Breathing unlabored no accessory muscle use good effort. Skin shows no rashes no pallor or icterus. No focal neuro deficits. Weaknessappears to be due to sepsis. While initially it appeared that she would be able to go home, unfortunately due to her age and frailty it does appear that she is quickly weekend to wear some form of rehab will likely be necessary before she is safe at home. Case management is aware and working on it, PT OT ongoing eval and treat. Sepsisseems to be related to pneumonia versus urine versus both. Much improved, continue Augmentin DVT prophylaxispharmacologic is fairly risky given her low counts (low counts likely related to chemotherapy). She does have mechanical DVT prophylaxis in place (appears to be fairly low risk for skin breakdown or falls) and she is working on being more ambulatory. Diarrheahistory of chronic constipation, KUB with fecal load, physical exam with a degree of distention all point towards a degree of constipation with overflow diarrhea. Working on affecting resolution with a gentle bowel regimen. Continue to follow. Acute renal failureappears to be hypovolemia/sepsis mediated, hopefully all prerenal. Still have not been able to obtain urine to calculate fractional exc retion of sodium, but does seem most likely to be prerenal versus a low degree of ATN. Continue IV fluids, supportive care. Her creatinine appears to have peaked. Sepsis secondary to UTI/pneumonia, POA, resolved - likely was largely contributory to her weakness, see above otherwise Subjective resting comfortably in bed. She has not had a BM today and feels distended with gas. Says her breathing is good. She says she feels like she would not be able to manage if we sent her home today (ie she lives alone and does not feel as though she has the strength). Review of Systems Review of Systems: Constitutional: No fevers, chills, night sweats Cardiovascular: No chest pain, palpitations or pedal edema Respiratory: No SOB, cough, wheezing Gastrointestinal: No nausea, vomiting, no constipation or diarrhea, abdominal pain, or difficulty swallowing Genitourinary: No dysuria, urgency, or hematuria but is incontinent with increased urinary frequency Physical Exam Constitutional: + thin and cooperative; no acute distress Eyes: + conjunctival abnormality (pallor) Respiratory: normal respiratory effort, lungs clear to auscultation Auscultation: no crackles, no rales and no egophony Cardiovascular: Rate/Rhythm: regular rate and regular rhythm Heart Sounds: normal S1, normal S2 and + murmur (systolic ejection; 3/6) Gastrointestinal (Abdomen): Inspection/Auscultation: + abdomen distended and normal bowel sounds Percussion/Palpation: + abdomen firm (throughout ); ab domen nontender and no ascites Neurologic: awake Psychiatric: Orientation: oriented x 3 Results & Data Vital Signs (Past 12 Hours) Vital Signs Temp Pulse Resp BP Pulse Ox 12/17/18 07:33 36.9 C 89 18 111/64 90 Laboratory Results 12/17/18 12/17/18 12/17/18 Range/Units 16:55 11:47 07:41 WBC (4.8-10.8) K/uL RBC (4.2-5.4) M/uL Hgb (12.0-16.0) g/dL Hct (37-47) % MCV (80-100) fL MCH (25-34) pg MCHC (32-36) g/dL RDW Std Deviation (36.4-46.3) fL RDW Coeff of Adan (11.5-14.5) % Plt Count (130-400) K/uL MPV (7.4-10.4) fL Immature Gran % (Auto) % Neut % (Auto) % Lymph % (Auto) % Preble % (Auto) % Eos % (Auto) % Baso % (Auto) % Immature Gran # (Auto) (0.00-0.02) K/uL Neut # (Auto) (1.4-6.5) K/uL Lymph # (Auto) (1.2-3.4) K/uL Preble # (Auto) (0.11-0.59) K/uL Eos # (Auto) (0-0.5) K/uL Baso # (Auto) (0-0.2) K/uL Echinocytes Acanthocytes (Spur) Sodium (136-145) mmol/L Potassium (3.5-5.1) mmol/L Chloride (98-107) mmol/L Carbon Dioxide (21-32) mmol/L Anion Gap (3-11) BUN (7-18) mg/dl Creatinine (0.6-1.2) mg/dl Est Cr Clr Drug Dosing ml/min Est GFR ( Amer) Est GFR (Non-Af Amer) BUN/Creatinine Ratio (10-20) Glucose (70-99) mg/dl POC Glucose 164 H 172 H 145 H (70-99) Calcium (8.5-10.1) mg/dl 12/17/18 12/17/18 12/16/18 Range/Units 06:10 06:10 20:13 WBC 9.46 (4.8-10.8) K/uL RBC 2.32 L (4.2-5.4) M/uL Hgb 7.9 L (12.0-16.0) g/dL Hct 23.3 L (37-47) % MCV 100.4 H (80-100) fL MCH 34.1 H (25-34) pg MCHC 33.9 (32-36) g/dL RDW Std Deviation 54.3 H (36.4-46.3) fL RDW Coeff of Adan 14.7 H (11.5-14.5) % Plt Count 100 L (130-400) K/uL MPV 9.6 (7.4-10.4) fL Immature Gran % (Auto) 0.3 % Neut % (Auto) 94.8 % Lymph % (Auto) 3.8 % Preble % (Auto) 0.3 % Eos % (Auto) 0.7 % Baso % (Auto) 0.1 % Immature Gran # (Auto) 0.03 H (0.00-0.02) K/uL Neut # (Auto) 8.96 H (1.4-6.5) K/uL Lymph # (Auto) 0.36 L (1.2-3.4) K/uL Preble # (Auto) 0.03 L (0.11-0.59) K/uL Eos # (Auto) 0.07 (0-0.5) K/uL Baso # (Auto) 0.01 (0-0.2) K/uL Echinocytes 2+ Acanthocytes (Spur) 1+ Sodium 136 (136-145) mmol/L Potassium 4.2 (3.5-5.1) mmol/L Chloride 108 H (98-107) mmol/L Carbon Dioxide 22 (21-32) mmol/L Anion Gap 6.0 (3-11) BUN 50 H (7-18) mg/dl Creatinine 2.55 H (0.6-1.2) mg/dl Est Cr Clr Drug Dosing 17.9 ml/min Est GFR ( Amer) 18.8 Est GFR (Non-Af Amer) 16.2 BUN/Creatinine Ratio 19.8 (10-20) Glucose 139 H (70-99) mg/dl POC Glucose 170 H (70-99) Calcium 7.7 L (8.5-10.1) mg/dl Medications Administered Current Inpatient Medications Acetaminophen (Tylenol) 650 mg PO Q4H PRN PRN Reason: Pain or Fever Stop: 01/14/19 01:32 Last Admin: 12/16/18 06:52 Dose: 650 mg Documented by: Al Hydrox/Mg Hydrox/Simethicone (Maalox) 15 ml PO Q4H PRN PRN Reason: Dyspepsia Stop: 01/14/19 01:32 Amoxicillin/Clavulanate Potassium (Augmentin 500mg) 1 tab PO BIDM [facility] Stop: 12/26/18 16:59 Last Admin: 12/17/18 17:17 Dose: 1 tab Documented by: Potassium Chloride/Sodium Chloride (1/2 Nss + 20meq Kcl 1000ml) 20 meq in 1,000 mls @ 80 mls/hr IV .[id number] [facility] Stop: 01/15/19 09:44 Last Admin: 12/17/18 14:02 Dose: 80 mls/hr Documented by: Magnesium Hydroxide (Milk Of Magnesia) 30 ml PO Q12H PRN PRN Reason: Constipation Stop: 01/14/19 01:32 Ondansetron HCl (Zofran) 4 mg IV Q6H PRN PRN Reason: Nausea Stop: 01/14/19 01:32 Pantoprazole Sodium (Protonix) 40 mg PO QAM [facility] Stop: 01/14/19 08:59 Last Admin: 12/17/18 08:54 Dose: 40 mg Documented by: Polyethylene Glycol (Miralax Powder Packet) 17 gm PO DAILY PRN PRN Reason: Constipation Stop: 01/14/19 01:32 Last Admin: 12/17/18 09:10 Dose: 17 gm Documented by: PG Care Time/CCT Total # of Minutes Spent Total Time Spent with Patient: Total time spent is greater than 50% in coordination of care (as documented) at patient's floor/unit and/or counseling patient: Resident Activity Tracking Resident Involvement: Resident Care Provided Care Provided: Adult Hospital Medicine (1) Fever Fever type: unspecified Qualified Code(s): R50.9 - Fever, unspecified
[2018-12-17] MEDS: ACETAMINOPHEN 325 MG TAB PO PRN (22:09)
[2018-12-18] MEDS: SODIUM CHLOR 0.45% + 20MEQ KCL 20 MEQ/1,000 ML BAG IV SCH ×3 (02:37→22:49)
[2018-12-18 06:51] LABS: BUN Creatinine Ratio 19.7 (10-20); Calcium 7.9 mg/dl (8.5-10.1); Creatinine Clr Calc Pharmacy 19.3 ml/min; Est GFR (African American) 20.1; Est GFR (Non-African American) 17.4; Potassium 4.2 mmol/L (3.5-5.1)
--- NOTE | 2018-12-18 07:09 | Family Medicine Progress Note ---
Date of Service December 18, 2018 Assessment & Plan (1) Weakness: Ms. Tse is an 88-year-old female with ovarian cancer on chemo who was admitted on 12/14 for weakness with a CXR showing a mass suspicious for RLL PNA and UA concerning for UTI with ANNI, thought to be of pre-renal origin. Weakness-seems to be improving -care management looking into possible short term acute rehab placement for Thursday (12/20) -continue daily PT/OT -etiology unknown, possibly multifactorial -on chemotherapy -urinary vs pulmonary infectious source; on antibiotic therapy Present on Admission?: Yes (2) PNA (pneumonia): -CXR on admission showing consolidation concerning for PNA -MSRA nasal PCR negative -discontinued vancomycin (12/16) -on oral augmentin (renal dosing) -no WBC throughout hospital stay -febrile on arrival to ED Present on Admission?: Yes (3) Acute UTI: -UA positive on admission -Culture shows Klebsiella growth -discontinued zosyn and started Augmentin 500mg (renal dosing); PO, BID -2/2 blood cultures show no growth through 48 hours (4) Acute kidney injury: -Cr 2.41 down from 2.55 12/17; baseline near 1.0 -BUN/Cr = 19.5 -FeNa = 0.2% indicates pre-renal etiology -increase IVF: orderd 1 liter bolos of normal saline; increased maintenance fluids: 1/2 normal saline with 20mEq of KCL for at 110mls/hr -continue to monitor with daily BMPs -renal dosing of meds as appropriate -Vancomycin/zosyn combo (increased risk of nephrotoxicity)was discontinued -Augmentin initiated at 500mg dose (renal dosing) -holding home lisinopril Present on Admission?: Yes (5) Fever: -febrile on admission -antipyretics prn -afebrile today 12/18 (6) Hypoxia: -satting 93 on room air -resolved Present on Admission?: Yes (7) CRP elevated: in setting of active chemotherapy now with infection Present on Admission?: Yes (8) Elevated procalcitonin: in setting of active chemotherapy now with infection Present on Admission?: Yes (9) Ovarian ca: -Follows with Dr. Silva; gets chemotherapy weekly for 2/month. - received treatment on the morning of admission 12/15. -monitor for developing neutropenia (WBC normal today 12/18) (10) Loose stools: -patient reports baseline constipation -etiology likely constipation induced -abdomen is distended and firm on exam -miralax daily plus additional dose today (12/18) (11) Macrocytic anemia: -likely attributable to chemo -HgB 7.9, MCV 100.0 FEN/GI: regular diet. NSS @ 80 ml/hr x 1 day. DVT ppx: Bilateral SCDs. Will hold off on pharmacologic prophylaxis given low cell lines (secondary to chemo) CODE STATUS: FULL DISPO: Med/surg; likely looking towards placement in a SNF on Thursday (OT recommendation) Present on Admission?: Yes Supervising Physician Co-Signing Physician Notes I personally examined the patient and verified all zuniga points of history and exam, discussed case, and agree with decision making with Dr Siddiqui. feeling better, still weak. voiding more. Vitals noted, in general she is awake and alert pleasant no distress. HEENT normocephalic atraumatic mucous members moist. Breathing unlabored no accessory muscle use good effort. Skin shows no rashes no pallor or icterus. No focal neuro deficits. Weaknessappears to be due to sepsis. While initially it appeared that she would be able to go home, unfortunately due to her age and frailty it does appear that she is quickly weekend to wear some form of rehab will likely be necessary before she is safe at home. Awaiting approvals and a bed Sepsisseems to be related to pneumonia versus urine versus both. Much improved, continue Augmentin to finish a course of therapy DVT prophylaxispharmacologic is fairly risky given her low counts (low counts likely related to chemotherapy). She does have mechanical DVT prophylaxis in place (appears to be fairly low risk for skin breakdown or falls) and she is working on being more ambulatory. Diarrheahistory of chronic constipation, KUB with fecal load, physical exam with a degree of distention all point towards a degree of constipation with overflow diarrhea. Continue to slowly escalate bowel regimen (don't want to be too aggressive to precipitate worsening renal failure) Acute renal failureappears to be hypovolemia/sepsis mediated, FeNa suggests quite prerenal. is improving. continue IV fluids, follow. Sepsis secondary to UTI/pneumonia, POA, resolved - likely was largely contributory to her weakness, see above otherwise Subjective resting comfortably in bed. She has not had a BM today and feels distended with gas. She will have a dose of Miralax after breakfast. Says her breathing is good. She continues to work with PT and OT daily. Care management is looking into short term rehab placement for Thursday (12/20) Review of Systems Review of Systems: Constitutional: No fevers, chills, night sweats Cardiovascular: No chest pain, palpitations or pedal edema Respiratory: No SOB, cough, wheezing Gastrointestinal: No nausea, vomiting, no constipation or diarrhea, abdominal pain, or difficulty swallowing Genitourinary: No dysuria, urgency, or hematuria but is incontinent with increased urinary frequency Physical Exam Constitutional: + thin and cooperative; no acute distress Eyes: + conjunctival abnormality (pallor) Respiratory: normal respiratory effort, lungs clear to auscultation Auscultation: no crackles, no rales and no egophony Cardiovascular: Rate/Rhythm: regular rate and regular rhythm Heart Sounds: normal S1, normal S2 and + murmur (systolic ejection; 3/6) Gastrointestinal (Abdomen): Inspection/Auscultation: + abdomen distended and + hypoactive bowel sounds Percussion/Palpation: + abdomen firm (throughout ); abdomen nontender and no ascites Neurologic: awake Psychiatric: Orientation: oriented x 3 Results & Data Vital Signs (Past 12 Hours) Vital Signs Temp Pulse Resp BP Pulse Ox 12/17/18 23:00 37.1 C 94 H 18 137/73 95 Laboratory Results 12/18/18 12/18/18 12/17/18 Range/Units 07:44 06:09 21:45 Sodium 133 L (136-145) mmol/L Potassium 4.2 (3.5-5.1) mmol/L Chloride 105 (98-107) mmol/L Carbon Dioxide 21 (21-32) mmol/L Anion Gap 7.0 (3-11) BUN 47 H (7-18) mg/dl Creatinine 2.41 H (0.6-1.2) mg/dl Est Cr Clr Drug Dosing 19.3 ml/min Est GFR ( Amer) 20.1 Est GFR (Non-Af Amer) 17.4 BUN/Creatinine Ratio 19.7 (10-20) Glucose 128 H (70-99) mg/dl POC Glucose 124 H (70-99) Calcium 7.9 L (8.5-10.1) mg/dl Ur Random Creatinine 169.0 mg/dl Ur Random Sodium 20 mmol/L 12/17/18 12/17/18 12/17/18 Range/Units 20:17 16:55 11:47 Sodium (136-145) mmol/L Potassium (3.5-5.1) mmol/L Chloride (98-107) mmol/L Carbon Dioxide (21-32) mmol/L Anion Gap (3-11) BUN (7-18) mg/dl Creatinine (0.6-1.2) mg/dl Est Cr Clr Drug Dosing ml/min Est GFR ( Amer) Est GFR (Non-Af Amer) BUN/Creatinine Ratio (10-20) Glucose (70-99) mg/dl POC Glucose 187 H 164 H 172 H (70-99) Calcium (8.5-10.1) mg/dl Ur Random Creatinine mg/dl Ur Random Sodium mmol/L Medications Administered Current Inpatient Medications Acetaminophen (Tylenol) 650 mg PO Q4H PRN PRN Reason: Pain or Fever Stop: 01/14/19 01:32 Last Admin: 12/17/18 22:09 Dose: 650 mg Documented by: Al Hydrox/Mg Hydrox/Simethicone (Maalox) 15 ml PO Q4H PRN PRN Reason: Dyspepsia Stop: 01/14/19 01:32 Amoxicillin/Clavulanate Potassium (Augmentin 500mg) 1 tab PO BIDM [facility] Stop: 12/26/18 16:59 Last Admin: 12/18/18 08:19 Dose: 1 tab Documented by: Potassium Chloride/Sodium Chloride (1/2 Nss + 20meq Kcl 1000ml) 20 meq in 1,000 mls @ 110 mls/hr IV .Q9H6M [facility] Stop: 01/15/19 09:44 Last Infusion: 12/18/18 09:17 Dose: 0 mls/hr Documented by: Magnesium Hydroxide (Milk Of Magnesia) 30 ml PO Q12H PRN PRN Reason: Constipation Stop: 01/14/19 01:32 Ondansetron HCl (Zofran) 4 mg IV Q6H PRN PRN Reason: Nausea Stop: 01/14/19 01:32 Pantoprazole Sodium (Protonix) 40 mg PO QAM [facility] Stop: 01/14/19 08:59 Last Admin: 12/18/18 08:19 Dose: 40 mg Documented by: Polyethylene Glycol (Miralax Powder Packet) 17 gm PO DAILY PRN PRN Reason: Constipation Stop: 01/14/19 01:32 Last Admin: 12/18/18 09:17 Dose: 17 gm Documented by: PG Care Time/CCT Total # of Minutes Spent Total Time Spent with Patient: Total time spent is greater than 50% in coordination of care (as documented) at patient's floor/unit and/or counseling patient: Resident Activity Tracking Resident Involvement: Resident Care Provided Care Provided: Adult Hospital Medicine (1) Fever Fever type: unspecified Qualified Code(s): R50.9 - Fever, unspecified
[2018-12-18] MEDS: PANTOprazole 40 MG TAB PO SCH (08:19)
[2018-12-18] MEDS: AMOXICILLIN/CLAVULANATE 500 MG TAB PO SCH ×2 (08:19→17:30)
[2018-12-18] MEDS ORDERED: SODIUM CHLORIDE 0.9% 1000ML 500 ML IV ONE (09:06)
[2018-12-18] MEDS: POLYETHYLENE (MIRALAX) 17 GM PACK PO PRN (09:17)
[2018-12-18] MEDS ORDERED: POLYETHYLENE (MIRALAX) 17 GM PACK PO ONE (16:30)
[2018-12-18] MEDS: ONDANSETRON INJ 2 MG/ML 2 ML VIAL IV PRN (17:29)
[2018-12-19] MEDS ORDERED: HEPARIN 100 UNIT/ML 5ML FLUSH FLUSH PRN (00:06)
[2018-12-19 06:28] LABS: BUN Creatinine Ratio 21.5 (10-20); Calcium 7.6 mg/dl (8.5-10.1); Creatinine Clr Calc Pharmacy 21.3 ml/min; Est GFR (African American) 22.6; Est GFR (Non-African American) 19.5; Potassium 4.7 mmol/L (3.5-5.1)
[2018-12-19] MEDS: SODIUM CHLOR 0.45% + 20MEQ KCL 20 MEQ/1,000 ML BAG IV SCH (08:08)
--- NOTE | 2018-12-19 08:08 | Family Medicine Progress Note ---
Date of Service December 19, 2018 Assessment & Plan (1) Weakness: Ms. Tse is an 88-year-old female with ovarian cancer on chemo who was admitted on 12/14 for weakness with a CXR showing a mass suspicious for RLL PNA and UA concerning for UTI with ANNI, thought to be of pre-renal origin. Weakness-seems to be improving -care management informed us she has been approved for placement at [facility] rehab for today, however we will defer transfer until at least tomorrow (Tuesday 12/19) -continue daily PT/OT -etiology unknown, possibly multifactorial -on chemotherapy -urinary vs pulmonary infectious source; on antibiotic therapy Present on Admission?: Yes (2) PNA (pneumonia): -CXR on admission showing consolidation concerning for PNA -new L sided wheezing appreciated today on PE; this could represent new onset HCAP (possible given that she has been in the hospital for past 5 days; however patient continues to be afebile, not tachypenic, and denies any new onset SOB) vs. clinical sign that mucocilliry clearnace mechanism is a;i -MSRA nasal PCR negative -discontinued vancomycin (12/16) -on oral augmentin (renal dosing) -no WBC throughout hospital stay -febrile on arrival to ED; has been afebrile since (3) Acute UTI: -UA positive on admission -Culture shows Klebsiella growth -discontinued zosyn and started Augmentin 500mg (renal dosing); PO, BID -2/2 blood cultures show no growth through 48 hours (4) Acute kidney injury: -Cr 2.41 down from 2.55 12/17; baseline near 1.0 -BUN/Cr = 19.5 -FeNa = 0.2% indicates pre-renal etiology -increase IVF: orderd 1 liter bolos of normal saline; increased maintenance fluids: 1/2 normal saline with 20mEq of KCL for at 110mls/hr -continue to monitor with daily BMPs -renal dosing of meds as appropriate -Vancomycin/zosyn combo (increased risk of nephrotoxicity)was discontinued -Augmentin initiated at 500mg dose (renal dosing) -holding home lisinopril (5) Fever: -febrile on admission -antipyretics prn -afebrile today 12/18 (6) Hypoxia: -satting 93 on room air -resolved (7) CRP elevated: in setting of active chemotherapy now with infection (8) Elevated procalcitonin: in setting of active chemotherapy now with infection (9) Ovarian ca: -Follows with Dr. Silva; gets chemotherapy weekly for 2/month. - received treatment on the morning of admission 12/15. -monitor for developing neutropenia (WBC normal today 12/18) (10) Loose stools: -patient reports baseline constipation -etiology likely constipation induced -abdomen is distended and firm on exam -miralax daily plus additional dose today (12/18) (11) Macrocytic anemia: -likely attributable to chemo -HgB 7.9, MCV 100.0 FEN/GI: regular diet. NSS @ 80 ml/hr x 1 day. DVT ppx: Bilateral SCDs. Will hold off on pharmacologic prophylaxis given low cell lines (secondary to chemo) CODE STATUS: FULL DISPO: Med/surg; likely looking towards placement in a SNF on Thursday (OT recommendation) Subjective resting comfortably in bed, feels about the same as yesterday. She had a BM today and will have a dose of Miralax with breakfast. She says she can hear herself wheeze at times this morning, but denies any new SOB. PT/OT did not come yesterday, but she will work with them today. Her preference is to go to a SNF for a short term rehab stint, as she is not confident she can manage totally by herself at home. Care management informed us that she has been approved at [facility] for rehab today if she is medically suitable to leave the hospital today. Review of Systems Review of Systems: Constitutional: No fevers, chills, night sweats Cardiovascular: No chest pain, palpitations or pedal edema Respiratory: No SOB, new occasional cough, hears herself wheezing Gastrointestinal: No nausea, vomiting, no constipation or diarrhea, abdominal pain, or difficulty swallowing, incontinent with stool at times Genitourinary: No dysuria, urgency, or hematuria but is incontinent with urine at times Physical Exam Constitutional: + thin and cooperative; no acute distress Eyes: + conjunctival abnormality (pallor) Respiratory: normal respiratory effort; no respiratory distress, no labored breathing, no retractions, does not use accessory muscles, not tachypneic and no nasal flaring Auscultation: + wheezes (heard over L lung on expiration with stethoscope); no crackles, no rales, no pleural rub and no egophony Cardiovascular: Rate/Rhythm: regular rate and regular rhythm Heart Sounds: normal S1, normal S2 and + murmur (systolic ejection; 3/6) Gastrointestinal (Abdomen): Inspection/Auscultation: + abdomen distended and + hypoactive bowel sounds Percussion/Palpation: + abdomen firm (throughout ); abdomen nontender and no ascites Neurologic: awake Psychiatric: Orientation: oriented x 3 Results & Data Vital Signs (Past 12 Hours) Vital Signs Temp Pulse Resp BP Pulse Ox 12/18/18 23:43 37.1 C 90 18 104/60 94 Laboratory Results 12/19/18 12/18/18 12/18/18 Range/Units 05:42 20:08 16:45 Sodium 133 L (136-145) mmol/L Potassium 4.7 (3.5-5.1) mmol/L Chloride 106 (98-107) mmol/L Carbon Dioxide 20 L (21-32) mmol/L Anion Gap 7.0 (3-11) BUN 47 H (7-18) mg/dl Creatinine 2.19 H (0.6-1.2) mg/dl Est Cr Clr Drug Dosing 21.3 ml/min Est GFR ( Amer) 22.6 Est GFR (Non-Af Amer) 19.5 BUN/Creatinine Ratio 21.5 H (10-20) Glucose 126 H (70-99) mg/dl POC Glucose 207 H 181 H (70-99) Calcium 7.6 L (8.5-10.1) mg/dl 12/18/18 Range/Units 11:36 Sodium (136-145) mmol/L Potassium (3.5-5.1) mmol/L Chloride (98-107) mmol/L Carbon Dioxide (21-32) mmol/L Anion Gap (3-11) BUN (7-18) mg/dl Creatinine (0.6-1.2) mg/dl Est Cr Clr Drug Dosing ml/min Est GFR ( Amer) Est GFR (Non-Af Amer) BUN/Creatinine Ratio (10-20) Glucose (70-99) mg/dl POC Glucose 148 H (70-99) Calcium (8.5-10.1) mg/dl Medications Administered Current Inpatient Medications Acetaminophen (Tylenol) 650 mg PO Q4H PRN PRN Reason: Pain or Fever Stop: 01/14/19 01:32 Last Admin: 12/17/18 22:09 Dose: 650 mg Documented by: Al Hydrox/Mg Hydrox/Simethicone (Maalox) 15 ml PO Q4H PRN PRN Reason: Dyspepsia Stop: 01/14/19 01:32 Amoxicillin/Clavulanate Potassium (Augmentin 500mg) 1 tab PO BIDM [facility] Stop: 12/26/18 16:59 Last Admin: 12/19/18 08:10 Dose: 1 tab Documented by: Heparin Sodium (Porcine) (Heparin Sod 100 Unit/Ml Flush) 5 ml FLUSH PRN PRN PRN Reason: Flush Stop: 01/18/19 00:14 Potassium Chloride/Sodium Chloride (1/2 Nss + 20meq Kcl 1000ml) 20 meq in 1,000 mls @ 110 mls/hr IV .Q9H6M [facility] Stop: 01/15/19 09:44 Last Admin: 12/19/18 08:08 Dose: 110 mls/hr Documented by: Magnesium Hydroxide (Milk Of Magnesia) 30 ml PO Q12H PRN PRN Reason: Constipation Stop: 01/14/19 01:32 Ondansetron HCl (Zofran) 4 mg IV Q6H PRN PRN Reason: Nausea Stop: 01/14/19 01:32 Last Admin: 12/18/18 17:29 Dose: 4 mg Documented by: Pantoprazole Sodium (Protonix) 40 mg PO QAM [facility] Stop: 01/14/19 08:59 Last Admin: 12/19/18 08:10 Dose: 40 mg Documented by: Polyethylene Glycol (Miralax Powder Packet) 17 gm PO DAILY [facility] Stop: 01/18/19 08:59 Last Admin: 12/19/18 08:10 Dose: 17 gm Documented by: Vitamin D (Vitamin D3) 2,000 units PO QAM [facility] Stop: 01/18/19 08:59 Last Admin: 12/19/18 09:48 Dose: 2,000 units Documented by: PG Care Time/CCT Total # of Minutes Spent Total Time Spent with Patient: Total time spent is greater than 50% in coordination of care (as documented) at patient's floor/unit and/or counseling patient: Resident Activity Tracking Resident Involvement: Resident Care Provided Care Provided: Adult Hospital Medicine (1) Fever Fever type: unspecified Qualified Code(s): R50.9 - Fever, unspecified
[2018-12-19] MEDS: PANTOprazole 40 MG TAB PO SCH (08:10)
[2018-12-19] MEDS: AMOXICILLIN/CLAVULANATE 500 MG TAB PO SCH (08:10)
[2018-12-19] MEDS ORDERED: CHOLECALCIFEROL 1,000 UNITS TAB PO SCH (09:00)
[2018-12-19] MEDS ORDERED: POLYETHYLENE (MIRALAX) 17 GM PACK PO SCH ×2 (09:00→10:00)
[2018-12-19] MEDS ORDERED: SODIUM CHLORIDE 0.9% 1000ML 1,000 ML IV ONE (10:34)
[2018-12-19] MEDS ORDERED: ALBUT/IPRATROP 3MG/0.5MG NEB 3 ML VIAL NEB ONE (10:53)
[2018-12-19] MEDS: ONDANSETRON INJ 2 MG/ML 2 ML VIAL IV PRN (11:27)
--- NOTE | 2018-12-19 14:21 | Discharge Summary ---
Date of Service December 19, 2018 Admission HPI Per Admitting Provider Ms. Tse is an 88-year-old female with levelock refractory ovarian cancer, hypertension and occasional gout who presents with acute weakness starting earlier today after her chemotherapy treatment. She states that she was trying to get back upstairs to her bedroom when she was not able to lift her foot up on the step and notified her medical alert system. She also endorses 1 week of loose stools at least 6/day that were nonbloody for which she took 1 dose of Imodium yesterday and this has resolved. She also endorses chills and malaise for at least a week. She also endorses dry cough for the last several weeks which she thought was due to air conditioning. She has a somewhat hoarse voice now. She arrived to the ED via EMS and per report was hypotensive in route. Currently endorses mild epigastric pain. Denies dyspnea, chest pain, neck pain, lower extremity swelling, melena, hematochezia, dysuria. Endorses mild headache. ED course: Patient presented with fever but is currently afebrile, blood p ressure mildly low 107/65, pulse regular, mild hypoxia is on 2 L. Her labs are notable for no neutropenia currently, macrocytosis, anemia H&H 9.1/26.6. INR is 1.1. CHEM profile remarkable for ANNI creatinine is 2.1, BUN 42, glucose elevated to 17. No transaminitis or hyperbilirubinemia. CRP 12.5, pro Kali 5.2 however the patient is on chemotherapy. Albumin is 2.3. Urine shows trace ketones 1+ blood 2+ leukocyte esterase and hyaline casts as well as yeast. Chest x-ray shows right-sided base opacity suspicious for pneumonia. She was given 2 L of normal saline as well as Zosyn. And Tylenol. Social history: She lives alone, closest family is in [place]. She states she is close to her knees. Her nephew Justyn Gomes who lives in [place] is her POA. Admission Exam Per Admitting Provider Vitals noted and within normal limits. GENERAL: Awake, alert to person, place, and time, nontoxic-appearing, in no distress. + pallor. HENT: Normocephalic, atraumatic. Nasal cannula in place. EYES: Normal conjunctiva. Sclera non-icteric. EOMI. NECK: Supple. Full range of motion. No JVD. RESPIRATORY: Clear to auscultation. Normal work of breathing. CARDIAC: Regular rate, normal rhythm. Extremities warm and well perfused, 2+ radial pulses bilaterally; 2+ posterior tibialis pulses bilaterally. ABDOMEN: Soft, non-distended. No tenderness to palpation in all four quadrants. No rebound or guarding. No masses. Bowel sounds are normal. LOWER EXTREMITIES: Inspection of calves reveal equal size bilaterally. They are non-tender. No edema. No discoloration. NEURO: No gross focal motor deficits noted. Sensation in tact. CN II-XII grossly in tact. . SKIN: Rash not present. No jaundice noted. Significant lesions not present. PSYCH: Appropriate mood and affect. Cooperative. Principal Diagnosis ANNI Discharge Exam Constitutional: + thin and cooperative; no acute distress Eyes: + conjunctival abnormality (pallor) Respiratory: normal respiratory effort. Auscultation: expiratory wheezing appreciated L worse than R. no crackles, no rales and no egophony Cardiovascular: Rate/Rhythm: regular rate and regular rhythm Heart Sounds: normal S1, normal S2 and + murmur (systolic ejection; 3/6) Gastrointestinal (Abdomen): Inspection/Auscultation: + abdomen distended and + hypoactive bowel sounds Percussion/Palpation: + abdomen firm (throughout ); abdomen nontender and no ascites Neurologic: awake Psychiatric: Orientation: oriented x 3 Discharge Data Allergies Allergy/AdvReac Type Severity Reaction Status Date / Time No Known Allergies Allergy Verified 12/14/18 22:19 Consultations 12/14/18 22:41 ED Decision to Admit Stat Hospital Course (1) Acute UTI: Ms. Tse is an 88-year-old female with ovarian cancer on chemo who was admitted on 12/14 for weakness with a CXR showing a mass suspicious for RLL PNA and UA concerning for UTI. She also was found to have an ANNI, thought to be of pre-renal origin. It is possible that the weakness Ms. Tse came to the hospital for was multifactorial in etiology: she was found to have both a UTI and a right sided PNA on admission. Additionally, she received a chemo infusion on the day of her admission, which may be contributory. The PNA (pneumonia) was visualized on CXR done on admission, for which she was started on IV Vancomycin and Zosyn given her immunocompromised state (chemo). Antibiotic therapy was de-escalated to Augmention, 500mg (renal dosing given ANNI), PO, BID. She was provided with a script for the Augmentin (has 5 days remaining in the course). She developed new, L-sided wheezing on day of discharge; while this could represent new onset HCAP (possible given that she has been in the hospital for past 5 days), hospital team feels this is unlikely given lack of fever and tachypnea, and no SOB reported by patient. More likely, the new wheezing is a clinical sign that mucocilliary clearance mechanism has begun clearing the known pneumonia. This thought was supported by improvement in the wheezing after Duo-Neb administration x1. As for the UTI, her UA positive on admission and urine culture shows Klebsiella growth with 2/2 blood cultures showing no growth through 48 hours. Augmentin provides coverage for both PNA and UTI infection. For the Acute kidney injury, her creatinine was as high as 2.64 (baseline is close to 1.0). Urine Na level of 20 and FeNa of 0.2% suggest pre-renal origin. She was treated with several IV fluid boluses in addition to maintenance fluids. On day of discharge, Cr was at 2.19. She was encouraged to drink 80 ounces of fluid orally per day after discharge. Please continue to monitor Cr with BMPs every 2 days and renal dose meds as appropriate. Her home lisinopril was held during her hospital stay in light of the ANNI - please continue to hold until ANNI resolves. At the beginning of her hospital stay Ms. Tse required supplemental oxygen (2L via NC). She has not home baseline oxygen requirement. By day of discharge, she was weaned from oxygen and satting 92% on room air. If she were to desaturate below 90, please provide supplemental O2 therapy. For her ovarian cancer, the patient follows with Dr. Silva and she gets chemotherapy weekly for 2/month. Her last infusion was the morning of admission 12/15. Patient typically is constipated at baseline, however she noted loose stools on day of admission. Her abdomen on physical exam was distended and firm throughout hospital stay, and hospital team determined likely etiology to be constipation- induced diarrhea. She was treated with Miralax, up to 3 times daily to promote daily bowel movements. This can be continued after leaving the hospital (starting with one Mirlax dose daily, then titrate up to 3 if no BM). She was also found to have macrocytic anemia on admission (HgB 7.9, MCV 100.0), likely secondary to her chemotherapy. No further workup is recommended. Total Time Total Time Spent Total Time Spent (In Minutes): less than 30 minutes Discharge Plan Discharge Items Patient Disposition: Transfer [facility] Reason For Visit: ANNI, PNA, WEAKNESS Discharge Diagnosis: ANNI Discharge Goals: Decrease discomfort Activity: Resume your previous activity Activity Comment: as tolerated Non-emergency contact: Primary Care Provider Call non-emergency contact if: you have any medication questions Follow-up/Referrals: Osvaldo Sosa MD [Primary Care Provider] - Diet: Regular Diet Comment: please consume 80 ounces of fluid daily Addtl Provider Instructions: Ms. Tse is an 88-year-old female with ovarian cancer on chemo who was admitted on 12/14 for weakness with a CXR showing a mass suspicious for RLL PNA and UA concerning for UTI. She also was found to have an ANNI, thought to be of pre-renal origin. It is possible that the weakness Ms. Tse came to the hospital for was m ultifactorial in etiology: she was found to have both a UTI and a right sided PNA on admission. Additionally, she received a chemo infusion on the day of her admission, which may be contributory. The PNA (pneumonia) was visualized on CXR done on admission, for which she was started on IV Vancomycin and Zosyn give her immunocompromised state (chemo). Antibiotic therapy was de-escalated to Augmention, 500mg (renal dosing given ANNI), PO, BID. She was given a script for the Augmentin (has 5 days remaining in the course). She developed new, L-sided wheezing on day of discharge; while this could represent new onset HCAP (possible given that she has been in the hospital for past 5 days), hospital team feels this is unlikely given lack of fever and tachypnea, and no SOB by patient. More likely, the new wheezing is a clinical sign that mucocilliary clearance mechanism has begun clearing the known pneumonia. As for the UTI, her UA positive on admission and urine culture shows Klebsiella growth with 2/2 blood cultures showing no growth through 48 hours. Augmentin provides coverage for both PNA and UTI infection. For the Acute kidney injury, her creatinine was as high as 2.64 (baseline close to 1.0). Urine Na level of 20 and FeNa of 0.2% suggest pre-renal origin. She was treated with several IV fluid boluses in addition to maintenance fluids.On day of discharge, Cr was at 2.19. She was encouraged to drink 80 ounces of fluid orally per day after discharge. Please continue to monitor Cr with BMPs every 2 days and renal dose meds as appropriate. Her home lisinopril was held during her hospital stay in light of the ANNI - please continue to hold until ANNI resolves. At the beginning of her hospital stay Ms. Tse required supplemental oxygen (2L via NC). She has not home baseline oxygen requirement. By day of discharge, she was weaned from oxygen and satting 92% on room air. If she were to desaturate below 90, please provide supplemental O2 therapy. For her ovarian cancer, the patient follows with Dr. Silva and she gets chemotherapy weekly for 2/month. Her last infusion was the morning of admission 12/15. Patient typically is constipated at baseline, however she noted loose stools on day of admission. Her abdomen on physical exam was distended and firm throughout hospital stay, and hospital team determined likely etiology to be constipation- induced diarrhea. She was treated with Miralax, up to 3 times daily to promote daily bowel movements. This can be continued after leaving the hospital (starting with one Mirlax dose daily, then titrate up to 3 if no BM). She was also found to have macrocytic anemia on admission (HgB 7.9, MCV 100.0), likely secondary to her chemotherapy. Prescriptions: New amoxicillin-pot clavulanate 500-125 mg Tablet 1 tab PO BIDM 5 Days Qty: 10 RF: 0 Continued ondansetron HCl 8 mg tablet 8 mg PO Q8H PRN (Reason: Nausea) RF: 0 pantoprazole 40 mg tablet,delayed release (DR/EC) 40 mg PO QAM RF: 0 ascorbic acid (vitamin C) [Vitamin C] 500 mg Tablet,Chewable 500 mg PO DAILY RF: 0 colchicine 0.6 mg Tablet 0.6 mg PO DAILY PRN (Reason: Gout Flare Up) RF: 0 lisinopril 40 mg Tablet 40 mg PO QAM RF: 0 cholecalciferol (vitamin D3) [Vitamin D3] 1,000 unit Capsule 1,000 unit PO DAILY RF: 0 Immune Health powder 1 dose PO DAILY RF: 0 Stand-Alone Forms: My [facility] Discharge Orders: Discharge Order (Routine); Ordered 12/19/18 Ordered By: Linda Siddiqui Skilled Items Patient informed of condition?: Yes DNR: No Discharge Level of Care: Skilled Communicable Disease: No Discharge Prognosis: Improving Admission Data Admit Date/Time: 12/14/18 23:50 Attending Provider: Wiliam Mcwilliams Admit Provider: Ara Rubio Primary Care Provider: Osvaldo Sosa Other Providers: Jelani Nelson Service: Oncology Other Interventions: Discharge Summary Assessment (RN) Last Done: 12/19/18 13:07 Supervising Physician Co-Signing Physician Notes I personally examined the patient and verified all zuniga points of history and exam, discussed case, and agree with decision making with Dr Siddiqui. no other new complaints. discussed risks/benefits of discharge today (SNF available, approved, no certainty that thsi will be the case tomorrow, but Cr still not at baseline --> but given looks entirely prerenal PO intake should continue to improve this) - she opts for discharge today Vitals noted, in general she is awake and alert pleasant no distress. HEENT normocephalic atraumatic mucous members moist. Breathing unlabored no accessory muscle use good effort. Skin shows no rashes no pallor or icterus. No focal neuro deficits. Weaknessappears to be due to sepsis. While initially it appeared that she would be able to go home, unfortunately due to her age and frailty it does appear that she is quickly weekend to wear some form of rehab will likely be necessary before she is safe at home. Because she has bed/approval today - big picture risk/benefit appears more favorable to discharge today and have SNF follow BMP/PO intake Sepsisseems to be related to pneumonia versus urine versus both. Much improved, continue Augmentin to finish a course of therapy - stable for discharge in this regard. DVT prophylaxisdue to low counts, pharmacologic was not given during stay Diarrheahistory of chronic constipation, KUB with fecal load, physical exam with a degree of distention all point towards a degree of constipation with overflow diarrhea. Continue to slowly escalate bowel regimen (don't want to be too aggressive to precipitate worsening renal failure) - follow at SNF Acute renal failureappears to be hypovolemia/sepsis mediated, FeNa suggests quite prerenal. is improving. given risk/benefit of situation in big picture, more favorable to continue PO intake and follow BMP closely than to keep inpatient, possibly not be able to dc to SNF -- so in this respect, given that Cr is improving, more favorable to dc to SNF and PO intake -- follow BMP tomorrow then every 2-3 days until normalized Sepsis secondary to UTI/pneumonia, POA, resolved - likely was largely contributory to her weakness, see above otherwise stable for SNF as above Resident Activity Tracking Resident Involvement: Resident Care Provided Care Provided: Adult Hospital Medicine
== END 2018-12-19 17:09 | DRG 871 ==
LOC: ED 19:55 → SUATTDRO 23:50 → 4W 23:50

== ENCOUNTER 2019-01-11 15:25 | Observation (INO) ==
--- NOTE | 2019-01-11 15:39 | Emergency Department Note ---
Entered by Bernie Aceves acting as a scribe for Ramesh Almanza MD History of Present Illness General Chief complaint: Weakness Time Seen by Provider: 01/11/19 15:30 Source: patient History of Present Illness Provider complaint: weakness Onset (ago): day(s) 1 Pain Consistency: + other (worsening) Quality: + other (weakness) Associated symptoms: + denies other symptoms (blood loss, dysuria, hematuria, metastasis of ovarian cancer), + shortness of breath (mildly) and + other (feet slightly more swollen than usual, stool slightly darker than usual); no chest pain Treatments prior to arrival: other (antibiotics) The patient is an 88 year old female with past medical history of low hemoglobin who presents to the ED with complaints of worsening weakness that began 1 day ago. The patient states that she was getting chemotherapy treatments 4 days ago for her ovarian cancer and felt fine afterwards and was walking around fine with her walker. The patient states that she started becoming weak a few days later. The patient states that her feet are slightly more swollen than normal, she is mildly short of breath, are her stool is slightly darker than usual. The patient states that she was diagnosed with a UTI and pneumonia 3 weeks ago, and is still on antibiotics. The patient denies blood loss, chest pain, dysuria, hematuria and metastasis of ovarian cancer. Home Medications Home Medications Medication Instructions Recorded Confirmed Type ascorbic acid (vitamin C) [Vitamin 500 mg PO DAILY 12/14/18 01/11/19 History C] cholecalciferol (vitamin D3) 1,000 unit PO DAILY 12/14/18 01/11/19 History [Vitamin D3] pantoprazole 40 mg PO QAM 12/14/18 01/11/19 History acetaminophen [Tylenol] 325 mg PO QID PRN 12/24/18 01/11/19 History metronidazole 500 mg PO BID 01/11/19 01/11/19 History Allergies Allergy/AdvReac Type Severity Reaction Status Date / Time No Known Allergies Allergy Verified 12/24/18 07:24 Past Med/Surg History Medical History Ovarian ca (Chronic) Low hemoglobin Anemia (Acute) Arthritis (Acute) Gout (Acute) History of hysterectomy (Acute) tumors removed from uterine area Acid reflux Ankle fracture HTN (hypertension) Hiatal hernia Ovarian cancer Prediabetes Social History Preferred Language: Spanish Communication Ability: Effective Surgical 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 and A total of 10 systems reviewed and were otherwise negative Physical Exam Vital Signs Vital Signs - 24 hr 01/11/19 15:20 01/11/19 15:34 01/11/19 15:35 Temperature 36.7 C Temperature Source Oral Sepsis Recent Fever Within 48 Hours No Sepsis New/Unexplained Change in Mental Status No Sepsis Action Taken by Nursing No Action Required Pulse Rate 88 83 Pulse Rate from SpO2 Sensor 82 Respiratory Rate 20 14 Respiratory Effort / Characteristics Non-Labored Spontaneous Respiratory Depth Normal Respiratory Pattern Regular Blood Pressure 154/75 H 154/75 H Blood Pressure Mean 101 101 Pulse Oximetry 94 95 94 Oxygen Delivery Method Room Air Room Air 01/11/19 15:39 01/11/19 16:00 01/11/19 16:30 Temperature Temperature Source Sepsis Recent Fever Within 48 Hours Sepsis New/Unexplained Change in Mental Status Sepsis Action Taken by Nursing Pulse Rate 86 79 84 Pulse Rate from SpO2 Sensor 86 79 85 Respiratory Rate 19 20 18 Respiratory Effort / Characteristics Respiratory Depth Respiratory Pattern Blood Pressure 137/82 Blood Pressure Mean 100 Pulse Oximetry 94 91 94 Oxygen Delivery Method 01/11/19 17:00 01/11/19 17:30 Temperature Temperature Source Sepsis Recent Fever Within 48 Hours Sepsis New/Unexplained Change in Mental Status Sepsis Action Taken by Nursing Pulse Rate 81 80 Pulse Rate from SpO2 Sensor 81 81 Respiratory Rate 19 16 Respiratory Effort / Characteristics Respiratory Depth Respiratory Pattern Blood Pressure 147/75 H 145/79 H Blood Pressure Mean 99 101 Pulse Oximetry 92 93 Oxygen Delivery Method General: Mildly pale, non-acutely ill appearing older female in no acute distress. HEENT: Normal cephalic atraumatic. Pupils are equal round and reactive to light. Extraocular movements are intact. Oropharynx is pink with moist mucous mem branes. No swelling of the mouth lips or tongue. Neck: Supple with a midline trachea. No meningeal signs or stiffness, no JVD or bruits. No Stridor. Chest: Clear to auscultation bilaterally. No wheezes or rhonchi. No increased work of breathing. Heart: regular rate and rhythm. Abdomen: Soft nontender, nondistended without rebound guarding or rigidity. Extremities: 1+ bilateral lower extremity edema. No cyanosis clubbing or edema. No calf tenderness or asymmetry Spine/Back. Non tender to palpation. No CVA tenderness Skin: Good turgor without rashes. Neurologic exam: Cranial nerves two through 12 are intact. Motor and sensation are intact and symmetrical throughout. Course 1522: Past medical records reviewed. The patient was evaluated in room C7. A complete history and physical exam was performed. 1601: I reevaluated the patient and she appears comfortable. Nurses are accessing port. 1726: I reevaluated the patient and she appears comfortable. The patient states that the peripheral edema is new since she left the hospital and it is not getting better. The patient states that she is currently on the antibiotics from C. Diff. 1748: I discussed the patient's case with [facility] She accepts the patient for Dr. Haque [facility] Hospitalist. He will evaluate the patient for further management. Consultations Consultation #1: I discussed the patient's case with Charley Taylor [facility]. She accepts the patient for Dr. Haque [place] Hospitalist. He will evaluate the patient for further management. Time: 17:48 Administered Medications Heparin Sodium (Porcine) (Heparin Sodium (Porcine)) 5,000 units SQ Q8 CORNELIUS Stop: 02/10/19 21:59 Last Admin: 01/11/19 22:04 Dose: 5,000 units Documented by: [id number] Cosigned by: [id number] Ioversol (Optiray 320 100ml) 94 ml IV ONCE PRN PRN Reason: Interaction Checking Stop: 01/15/19 20:48 Last Admin: 01/11/19 20:50 Dose: 94 ml Documented by: [id number] Metronidazole (Flagyl) 500 mg PO BID CORNELIUS Stop: 01/21/19 20:59 Last Admin: 01/11/19 22:04 Dose: 500 mg Documented by: [id number] Potassium Chloride (Klor-Con Pwd) 20 meq PO TID CORNELIUS Stop: 02/10/19 20:59 Last Admin: 01/11/19 22:03 Dose: 20 meq Documented by: [id number] Discontinued Medications Potassium Chloride (Klor-Con M20) 40 meq PO NOW STA Stop: 01/11/19 17:31 Last Admin: 01/11/19 17:44 Dose: 40 meq Documented by: [id number] Medical Decision Making Differential Diagnosis Differentials include anemia, cardiac disease, CHF, sepsis, pneumonia, UTI, neurologic process, cancer complications, metabolic and electrolyte abnormality. Medical Records Attestation: I reviewed the patient's medical records. Home Medications Current Medication List: was personally reviewed by me Laboratory Data Attestation: I reviewed the patient's lab results. Result diagrams: 01/11/19 16:12 01/11/19 16:12 Lab Results 01/11/19 01/11/19 01/11/19 Range/Units 16:12 16:12 16:12 WBC 6.65 (4.8-10.8) K/uL RBC 2.99 L (4.2-5.4) M/uL Hgb 9.8 L (12.0-16.0) g/dL Hct 29.1 L (37-47) % MCV 97.3 (80-100) fL MCH 32.8 (25-34) pg MCHC 33.7 (32-36) g/dL RDW Std Deviation 67.1 H (36.4-46.3) fL RDW Coeff of Adan 18.7 H (11.5-14.5) % Plt Count 268 (130-400) K/uL MPV 9.4 (7.4-10.4) fL Immature Gran % (Auto) 0.5 % Neut % (Auto) 74.9 % Lymph % (Auto) 10.7 % Reeves % (Auto) 12.0 % Eos % (Auto) 1.4 % Baso % (Auto) 0.5 % Immature Gran # (Auto) 0.03 H (0.00-0.02) K/uL Neut # (Auto) 4.99 (1.4-6.5) K/uL Lymph # (Auto) 0.71 L (1.2-3.4) K/uL Reeves # (Auto) 0.80 H (0.11-0.59) K/uL Eos # (Auto) 0.09 (0-0.5) K/uL Baso # (Auto) 0.03 (0-0.2) K/uL PT 11.9 (9.0-12.0) Seconds INR 1.2 H (0.9-1.1) APTT 36.9 H (21.0-31.0) Seconds PTT Ratio 1.4 Sodium 141 (136-145) mmol/L Potassium 2.9 L (3.5-5.1) mmol/L Chloride 107 (98-107) mmol/L Carbon Dioxide 26 (21-32) mmol/L Anion Gap 8.0 (3-11) BUN 17 (7-18) mg/dl Creatinine 1.14 (0.6-1.2) mg/dl Est Cr Clr Drug Dosing Not Reportable Est GFR ( Amer) 49.7 Est GFR (Non-Af Amer) 42.9 BUN/Creatinine Ratio 15.2 (10-20) Glucose 142 H (70-99) mg/dl Lactate (0.4-2.0) mmol/L Calcium 7.9 L (8.5-10.1) mg/dl Total Bilirubin 0.4 (0.2-1) mg/dl AST 20 (15-37) U/L ALT 11 L (12-78) U/L Alkaline Phosphatase 55 (45-117) U/L Troponin I 0.017 (0-0.045) ng/ml NT-Pro-B Natriuret Pep 1570 (0-1800) pg/ml Total Protein 5.6 L (6.4-8.2) gm/dl Albumin 2.0 L (3.4-5.0) gm/dl Globulin 3.6 (2.5-4.0) gm/dl Albumin/Globulin Ratio 0.6 L (0.9-2) Urine Color Urine Appearance (Clear) Urine pH (4.5-7.5) Ur Specific [place] (1.000-1.030) Urine Protein (Negative) Urine Glucose (UA) (Negative) Urine Ketones (Negative) Urine Blood (Negative) Urine Nitrite (Negative) Urine Bilirubin (Negative) Urine Urobilinogen (Negative) Ur Leukocyte Esterase (Negative) Urine WBC (Auto) (0-5) /hpf Urine RBC (Auto) (0-4) /hpf U Hyaline Cast (Auto) (0-5) /lpf U Epithel Cells (Auto) (0-5) /lpf Urine Bacteria (Auto) (Negative) Blood Type Antibody Screen Antibody Identification 01/11/19 01/11/19 01/11/19 Range/Units 16:12 16:12 16:45 WBC (4.8-10.8) K/uL RBC (4.2-5.4) M/uL Hgb (12.0-16.0) g/dL Hct (37-47) % MCV (80-100) fL MCH (25-34) pg MCHC (32-36) g/dL RDW Std Deviation (36.4-46.3) fL RDW Coeff of Adan (11.5-14.5) % Plt Count (130-400) K/uL MPV (7.4-10.4) fL Immature Gran % (Auto) % Neut % (Auto) % Lymph % (Auto) % Reeves % (Auto) % Eos % (Auto) % Baso % (Auto) % Immature Gran # (Auto) (0.00-0.02) K/uL Neut # (Auto) (1.4-6.5) K/uL Lymph # (Auto) (1.2-3.4) K/uL Reeves # (Auto) (0.11-0.59) K/uL Eos # (Auto) (0-0.5) K/uL Baso # (Auto) (0-0.2) K/uL PT (9.0-12.0) Seconds INR (0.9-1.1) APTT (21.0-31.0) Seconds PTT Ratio Sodium (136-145) mmol/L Potassium (3.5-5.1) mmol/L Chloride (98-107) mmol/L Carbon Dioxide (21-32) mmol/L Anion Gap (3-11) BUN (7-18) mg/dl Creatinine (0.6-1.2) mg/dl Est Cr Clr Drug Dosing Est GFR ( Amer) Est GFR (Non-Af Amer) BUN/Creatinine Ratio (10-20) Glucose (70-99) mg/dl Lactate 1.0 (0.4-2.0) mmol/L Calcium (8.5-10.1) mg/dl Total Bilirubin (0.2-1) mg/dl AST (15-37) U/L ALT (12-78) U/L Alkaline Phosphatase (45-117) U/L Troponin I (0-0.045) ng/ml NT-Pro-B Natriuret Pep (0-1800) pg/ml Total Protein (6.4-8.2) gm/dl Albumin (3.4-5.0) gm/dl Globulin (2.5-4.0) gm/dl Albumin/Globulin Ratio (0.9-2) Urine Color Yellow Urine Appearance Clear (Clear) Urine pH 6.0 (4.5-7.5) Ur Specific [place] 1.012 (1.000-1.030) Urine Protein Negative (Negative) Urine Glucose (UA) Negative (Negative) Urine Ketones Negative (Negative) Urine Blood Negative (Negative) Urine Nitrite Positive A (Negative) Urine Bilirubin Negative (Negative) Urine Urobilinogen Negative (Negative) Ur Leukocyte Esterase 2+ H (Negative) Urine WBC (Auto) 10-30 H (0-5) /hpf Urine RBC (Auto) 0-4 (0-4) /hpf U Hyaline Cast (Auto) 1-5 (0-5) /lpf U Epithel Cells (Auto) 5-10 H (0-5) /lpf Urine Bacteria (Auto) 4+ H (Negative) Blood Type O Negative Antibody Screen POSITIVE A Antibody Identification Anti-Fya Imaging Data Radiologist's Impression: Radiology results as stated below per my review and the radiologist's interpretation: XR chest 1V portable CLINICAL HISTORY: Sepsis dyspnea COMPARISON STUDY: 12/14/2018 FINDINGS: Moderate stable cardiac megaly. Chronic interstitial prominence both lung bases. Fixed hiatal hernia is unchanged. There are abdomen the lungs are considered clear. There is a central catheter in superior vena cava. IMPRESSION: 1. Mild stable cardiomegaly. 2. Small fixed hiatal hernia. 3. Chronic bibasilar interstitial change. 4. No evidence for superimposed infiltrate. The above report was generated using voice recognition software. It may contain grammatical, syntax or spelling errors. Electronically signed by: Eugene Castellon M.D. 01/11/2019 3:48 PM ECG Data Attestation: I personally reviewed and interpreted this ECG as follows: Indication: weakness Rate (beats per minute): 84 Rhythm: normal sinus Findings: + PVC (occasional); no ST depression, no ST elevation and no acute ischemic change Comparison ECG Date: from (12/14/2018) Change: the following changes noted (PVC are now present) Blood Pressure Blood Pressure Findings: Elevated blood pressure Blood Pressure Disposition: further management by hospitalist NICOLAS Narrative This patient comes in as described above. She was placed in room C7. She is here for treatment evaluation of generalized weakness. She does have a ovarian cancer and is being treated with chemo with the last dose about 3 weeks ago. She does have A port. She has had no fever. She has no focal numbness or weak ness on exam she does have some peripheral edema which she thinks may be new or worse. No chest pain or shortness of breath. She looks well. She has stable vital signs upon arrival. Given her recent complex medical history, an extensive work-up was done to evaluate her. This included a type and screen as I thought she may need a blood transfusion. Also did blood cultures and lactic acid. She had a recent pneumonia and UTI and these were investigated as well with a chest x-ray and urinalysis/culture. Cardiac work-up was done as well. She has no focal neurologic deficits. She was reassessed frequently. Her EKG does not suggest acute coronary syndrome or arrhythmia. Her urinalysis does suggest a UTI although she has no symptoms and this is complicated by the fact that she has recent C. difficile. Her potassium was low at 2.9 she was given oral potassium. She does have some peripheral edema which she says is new subacutely. She is not neutropenic .she has nothing to suggest infection. Given her weakness her UTI hypokalemia and edema, I do think she needs to be admitted/observed and I have consulted the [facility] hospitalist to see her in the ER for these measures. Impression & Plan Weakness, UTI (urinary tract infection), Ovarian cancer, Hypokalemia, Edema of lower extremity, History of Clostridium difficile infection Discharge Plan Visit Data *Final* Discharge Date/Time: 01/11/19 19:42 Chief Complaint: Weakness ED Provider: Ramesh Almanza Discharge Problem: Weakness, UTI (urinary tract infection), Ovarian cancer, Hypokalemia, Edema of lower extremity, History of Clostridium difficile infection Patient Disposition: Admitted As Inpatient Discharge Instructions Interventions: ED Discharge Assessment Last Done: 01/11/19 19:42 Discharge Problem: UTI (urinary tract infection) Qualifiers: Urinary tract infection type: site unspecified Hematuria presence: without hematuria Qualified Code(s): N39.0 - Urinary tract infection, site not specified Ovarian cancer Qualifiers: Laterality: unspecified laterality Qualified Code(s): C56.9 - Malignant neoplasm of unspecified ovary The scribe's documentation has been prepared under my direction and personally reviewed by me in its entirety. I confirm that the note above accurately reflects all work, treatment, procedures, and medical decision making performed by me.
--- NOTE | 2019-01-11 15:50 | XRay Report ---
XR chest 1V portable CLINICAL HISTORY: Sepsis dyspnea COMPARISON STUDY: 12/14/2018 FINDINGS: Moderate stable cardiac megaly. Chronic interstitial prominence both lung bases. Fixed hiat al hernia is unchanged. There are abdomen the lungs are considered clear. There is a central catheter in superior vena cava. IMPRESSION: 1. Mild stable cardiomegaly. 2. Small fixed hiatal hernia. 3. Chronic bibasilar interstitial change. 4. No evidence for superimposed infiltrate. The above report was generated using voice recognition software. It may contain grammatical, syntax or spelling errors. Electronically signed by: Eugene Castellon M.D. 01/11/2019 3:48 PM
[2019-01-11 16:26] LABS: Basophils # (auto) 0.03 K/uL (0-0.2); Basophils % (auto) 0.5 %; Eosinophils # (auto) 0.09 K/uL (0-0.5); Eosinophils % (auto) 1.4 %; Hematocrit (blood only) 29.1 % (37-47); Hemoglobin 9.8 g/dL (12.0-16.0); Immature Granulocytes # (auto) 0.03 K/uL (0.00-0.02); Immature Granulocytes % (auto) 0.5 %; Lymphocytes # (auto) 0.71 K/uL (1.2-3.4); Lymphocytes % (auto) 10.7 %; Mean Corpuscular Hgb Conc 33.7 g/dL (32-36); Mean Corpuscular Volume 97.3 fL (80-100); Mean Platelet Volume 9.4 fL (7.4-10.4); Neutrophils # (auto) 4.99 K/uL (1.4-6.5); Neutrophils % (auto) 74.9 %; Platelet Count 268 K/uL (130-400); RDW Coefficient of Variation 18.7 % (11.5-14.5); RDW Standard Deviation 67.1 fL (36.4-46.3); Red Blood Count 2.99 M/uL (4.2-5.4); White Blood Count 6.65 K/uL (4.8-10.8)
[2019-01-11 16:36] LABS: INR 1.2 (0.9-1.1); Partial Thromboplastin Ratio 1.4; Partial Thromboplastin Time 36.9 Seconds (21.0-31.0); Prothrombin Time 11.9 Seconds (9.0-12.0)
[2019-01-11 16:42] LABS: Alanine Aminotransferase 11 U/L (12-78); Aspartate Aminotransferase 20 U/L (15-37); BUN Creatinine Ratio 15.2 (10-20); Blood Urea Nitrogen 17 mg/dl (7-18); Calcium 7.9 mg/dl (8.5-10.1); Carbon Dioxide 26 mmol/L (21-32); Chloride 107 mmol/L (98-107); Est GFR (African American) 49.7; Est GFR (Non-African American) 42.9; Glucose 142 mg/dl (70-99); Potassium 2.9 mmol/L (3.5-5.1); Sodium 141 mmol/L (136-145)
[2019-01-11 16:47] LABS: Albumin Globulin Ratio 0.6 (0.9-2); Alkaline Phosphatase 55 U/L (45-117); Bilirubin,Total 0.4 mg/dl (0.2-1); Globulin 3.6 gm/dl (2.5-4.0); NT Pro B Type Natriuretic Pept 1570 pg/ml (0-1800); Total Protein 5.6 gm/dl (6.4-8.2); Troponin I 0.017 ng/ml (0-0.045)
[2019-01-11 17:05] LABS: Appearance Urine Clear (Clear); Bacteria Urine Automated 4+ (Negative); Bilirubin Urine Negative (Negative); Blood Urine Negative (Negative); Color Urine Yellow; Glucose Urine UA Negative (Negative); Ketones Urine Negative (Negative); Leukocyte Esterase Urine 2+ (Negative); Nitrite Urine Positive (Negative); Protein Urine Negative (Negative); RBC Urine Automated 0-4 /hpf (0-4); Specific Gravity Urine 1.012 (1.000-1.030); Urobilinogen Urine Negative (Negative)
[2019-01-11] MEDS ORDERED: POTASSIUM CHLORIDE 20 MEQ TABCR PO STA (17:30)
--- NOTE | 2019-01-11 19:04 | History & Physical Report ---
Date of Service January 11, 2019 Assessment & Plan (1) History of Clostridium difficile infection: EDITED: Assessment and Plan randomly deleted by [employer] last night writing this edit morning of 01/12 88 year old woman with history of Ovarian Cancer, Hypertension and Gout who presents for lower limb swelling and weakness. Lower Limb Edema and Weakness Differential includes CHF, obstruction, DVT, Loss of oncotic pressure, venous stasis, nephrotic syndrome No shortness of breath, no orthopnea, no recent change in diet, no exertional symptoms, and CXR in ED showing no pulmonary edema; this seems unlikely to be CHF related Patient's renal function is greatly improved and urinalysis negative for protein loss makes this unlikely to be renally mediated DVT is unlikely to present bilaterally, but in a patient with known ovarian cancer she is higher risk for thrombosis Will check bilateral venous dopplers Patient with known ovarian cancer, mass in central pelvis approximately 8x8x9.5 cm as well as ascites in last CT scan in September. Will recheck CT abdomen and pelvis and evaluate for any change in mass and possible obstruction by mass or increased abdominal pressure by ascites Patient with limited mobility and poor PO intake of late, albumin 2.0. Possible secondary to combination of venous stasis and decreased oncotic pressure. Will attempt to compress and elevate legs and get moving with PT/OT after investigating other causes. Hypokalemia Potassium 2.9 in ED Given 40 mEq of potassium in ED Placed on 20 mEq TID Will trend daily BMP's Ovarian Cancer Diagnosed several years ago, followed by [facility] Last chemotherapy treatment was 3 weeks ago Will recheck CT scan abdomen and pelvis Home Situation Patient lives alone in multilevel home and has not been upstairs in weeks. Very concerned about her ability to live independently as it currently stands Will need to work with PT/OT and case management to determine safe landing on discharge whether that be more acute rehab, assisted living, or home with home health. F/E/N: Heart Healthy DVT PPx: Heparin Sub Q Dispo: Med Surg (2) Edema of lower extremity: (3) Weakness: (4) Ovarian ca: (5) Hypokalemia: History of Present Illness Chief Complaint: Bilateral lower limb edema Primary Care Provider: Osvaldo Sosa MD Debra Tse is an 88 year old woman with a past medical history ovarian cancer, hypertension, and gout who presents today with weakness. She was recently hospitalized in late November for weakness after her chemotherapy treatment. She was treated for a UTI and right sided pneumonia treated initially with IV zosyn and vancomycin and was discharged to finish a ten day course of augmentin. She was discharged to [facility] for rehabilitation and returned home this past . She tells me that in the middle of her stay at [facility] she developed bilateral lower limb edema, this has continued to progress and now she is noticing some weakness and heaviness of her legs causing her difficulty in ambulation which is why she presented here to the hospital today. She has not had any falls, any shortness of breath, chest pain, fatigue on exertion, palpitations or any other troubling symptoms. She is not having any pain or tenderness of the lower limbs, and they do not feel warm. She has not been ambulating much at all. She lives at home alone in a two story house. She has not been able to be upstairs since before her last admission. She is renting a hospital bed for downstairs currently and using the half bath there. Her family has come to check on her occasionally and cook her batches of meals. She denies any salt intake and tells me she has only eaten home made food and that her daughter has not used any salt. She is currently just taking just vitamins, pantoprazole and metronidazole for a Clostridium Difficile infection she was diagnosed with while at [facility]. Had loose stools initially, but has not had any loose stools in several days in fact she reports constipation for which she has been drinking prune juice. Allergies Allergy/AdvReac Type Severity Reaction Status Date / Time No Known Allergies Allergy Verified 12/24/18 07:24 Home Medications Home Medications Medication Instructions Recorded Confirmed Type ascorbic acid (vitamin C) [Vitamin 500 mg PO DAILY 12/14/18 01/11/19 History C] cholecalciferol (vitamin D3) 1,000 unit PO DAILY 12/14/18 01/11/19 History [Vitamin D3] pantoprazole 40 mg PO QAM 12/14/18 01/11/19 History acetaminophen [Tylenol] 325 mg PO QID PRN 12/24/18 01/11/19 History metronidazole 500 mg PO BID 01/11/19 01/11/19 History Past Med/Surg History Medical History Ovarian ca (Chronic) Low hemoglobin Anemia (Acute) Arthritis (Acute) Gout (Acute) History of hysterectomy (Acute) tumors removed from uterine area Acid reflux Ankle fracture HTN (hypertension) Hiatal hernia Ovarian cancer Prediabetes Social History Preferred Language: Guinean Communication Ability: Effective [employer] Required: No Beliefs That Will Affect Care: None Current Living Situation: Alone Other Information That Helps Us Care for You: No Feels Safe at Home: Yes Safety Concerns: Feels Safe At This Time Smoking Status: Never smoker Hx Alcohol Use: No Hx Substance Use: No Review of Systems Constitutional: + weakness; no fever, no chills, no sweats and no fatigue Eyes: no problem reported Respiratory: no cough, no dyspnea and no wheezing Cardiovascular: + edema (Bilateral lower limb edema); no chest pain, no dyspnea, no orthopnea, no paroxysmal nocturnal dyspnea, no palpitations, no lightheadedness, no syncope, no calf pain and no claudication Gastrointestinal: + constipation; no abdominal pain, no nausea, no vomiting, no diarrhea/loose stools and no blood in stools Genitourinary: + urinary incontinence (Chronic); no dysuria and no urinary frequency Physical Exam Constitutional: cooperative and comfortable; no acute distress and no altered mental status Eyes: PERRL, conjunctivae normal, anicteric sclerae ENMT: external ear and nose normal, oropharynx normal Respiratory: normal respiratory effort, lungs clear to auscultation Cardiovascular: Rate/Rhythm: regular rate and regular rhythm Heart Sounds: + murmur (Systolic Murmur, Chronic); no click, no gallop and no cardiac rub Extremities: + edema (Pitting edema bilaterally); no calf tenderness No JVD Gastrointestinal (Abdomen): Inspection/Auscultation: + abdomen distended Percussion/Palpation: abdomen soft; abdomen nontender Skin: no rashes, warm and dry Results & Data Vital Signs (Past 12 Hours) Vital Signs Temp Pulse Pulse Resp BP BP Pulse Ox 01/11/19 18:56 86 18 183/87 H 95 01/11/19 17:30 80 16 145/79 H 93 01/11/19 17:00 81 19 147/75 H 92 01/11/19 16:30 84 18 137/82 94 01/11/19 16:00 79 20 91 01/11/19 15:39 86 19 94 08/20/19 15:35 83 14 154/75 H 94 01/11/19 15:34 95 01/11/19 15:20 36.7 C 88 20 154/75 H 94 Code Status & VTE Plan VTE Prophylaxis Plan VTE Prophylaxis will be ordered: Yes Supervising Physician Co-Signing Physician Notes I personally examined the patient and verified all zuniga points of history and exam, discussed case, and agree with decision making with Dr Armenta. Feeling weaker and legs swollen, no shortness of breath. Belly feels about the same as it has been. Vitals noted, in general she is awake and alert pleasant no distress. HEENT normal cephalic atraumatic mucous membranes moist. Breathing unlabored no accessory muscle use good effort. Abdomen soft to deep palpation, but diffuse mild firmness scattered throughout similar to prior exams, nontender no guarding/rebound/rigidity. Extremities show bilateral approximately 3+ lower extremity pitting edema soft nontender no erythema Weakness/leg swellingthe to do seem to go [id number], she was at home again, and noticed that since her legs got more swollen she is been too weak to get around. The concerning differential would be if she has worsening intra- abdominal pathology creating increased pressure worsening venous stasis, but it also just is likely that she has a mild degree of baseline venous stasis that is now exacerbated by deconditioning induced immobility and malnutrition induced decreased oncotic pressure. CT abdomen pelvis to rule out intra-abdominal pathology related to her ovarian cancer, if this is negative, work on mobility, nutrition, compression. Obviously with the active cancer diagnosis, while she does not examine like venous thromboembolic disease, with new edema we will also be ruling out DVT. PG Care Time/CCT Total # of Minutes Spent Total Time Spent with Patient: Total time spent is greater than 50% in coordination of care (as documented) at patient's floor/unit and/or counseling patient: 45 Resident Activity Tracking Resident Involvement: Resident Care Provided Care Provided: Adult Hospital Medicine
[2019-01-11] MEDS ORDERED: POLYETHYLENE (MIRALAX) 17 GM PACK PO PRN (20:25)
[2019-01-11] MEDS ORDERED: ALUMINUM/MAGNESIUM SUSP 30 ML UDC PO PRN (20:25)
[2019-01-11] MEDS ORDERED: ACETAMINOPHEN 325 MG TAB PO PRN ×2 (20:25)
[2019-01-11] MEDS ORDERED: MAGNESIUM HYDROXIDE SUSP 30 ML UDC PO PRN (20:25)
[2019-01-11] MEDS ORDERED: IOVERSOL 100ml IV PRN ×2 (20:49)
--- NOTE | 2019-01-11 21:02 | CT Scan Report ---
CT abd pelvis IV con only CLINICAL HISTORY: Ovarian carcinoma. Bilateral lower extremity swelling. Evaluate for intra-abdominal metastasis. COMPARISON STUDY: September 23, 2018 TECHNIQUE: The patient was scanned in a dynamic helical fashion during intravenous administration of 94 cc of Optiray 320. A dose lowering technique was utilized adhering to the principles of ALARA. CT DOSE: 932.39 mGy.cm FINDINGS: Lower chest: There is a large hiatal hernia. There are bilateral pleural effusions. There are bilater al lower lobe compressive atelectatic changes. Liver: The contrast-enhanced liver is normal in size, contour, and attenuation. There is no intrahepa tic biliary ductal dilatation. The hepatic veins and portal veins are patent. Gallbladder: Cholelithiasis Spleen: Normal in size and attenuation. Pancreas: Atrophic. There is a 15 mm cyst in the pancreatic body, likely representing a side branch I PMN. Adrenal glands: Unremarkable. Kidneys: There are bilateral renal cysts. No solid renal masses are visualized. There is no hydroneph rosis. Bowel: There are no transition zones to indicate bowel obstruction. There is a moderate amount of rig ht colonic stool. There is no acute diverticulitis. There are no findings to indicate acute appendici tis. Peritoneum: There is a large volume of ascites. There is no free intraperitoneal air. 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 The previously described 24 mm nodule posterior t o the liver demonstrates equivocal slight interval increase in size Vasculature: The abdominal aorta is normal in course and caliber. Adenopathy: None. Pelvic viscera: The patient is status post a hysterectomy. There is a 9 cm pelvic mass suspicious for a metastatic deposit. Skeletal structures: No destructive osseous lesions are seen. IMPRESSION: 1. No evidence of bowel obstruction. No evidence of free air 2. Persistent large 9 cm pelvic mass, consistent with neoplasm. 3. 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 Large volume of ascites 5. Cholelithiasis 6. Large hiatal hernia 7. Interval development of bilateral pleural effusions Electronically signed by: Suman Hall M.D. 01/11/2019 9:00 PM
--- NOTE | 2019-01-11 21:32 | Ultrasound Report ---
US venous doppler LE BI CLINICAL HISTORY: bilateral lower limb swelling COMPARISON STUDY: No previous studies for comparison. FINDINGS: Real-time and color flow Doppler imaging were performed. Flow was seen within the femoral, popliteal and calf veins with no intraluminal thrombus demonstrated. The saphenous vein is patent. Th ere is lower extremity soft tissue edema which limits evaluation of the calf vessels. IMPRESSION: No evidence of lower extremity DVT Electronically signed by: Suman Hall M.D. 01/11/2019 9:30 PM
[2019-01-11] MEDS: POTASSIUM CHLORIDE PWD 20 MEQ PACK PO SCH (22:03)
[2019-01-11] MEDS: metroNIDAZOLE 500 MG TAB PO SCH (22:04)
[2019-01-11] MEDS: HEPARIN SOD 5,000 UNIT/0.5 ML VIAL SQ SCH (22:04)
[2019-01-12] MEDS: HEPARIN SOD 5,000 UNIT/0.5 ML VIAL SQ SCH ×3 (06:09→21:05)
[2019-01-12] MEDS ORDERED: ONDANSETRON INJ 2 MG/ML 2 ML VIAL IV PRN (06:46)
[2019-01-12 07:00] LABS: Hematocrit (blood only) 29.8 % (37-47)
[2019-01-12 07:32] LABS: BUN Creatinine Ratio 14.9 (10-20); Calcium 8.1 mg/dl (8.5-10.1); Creatinine Clr Calc Pharmacy 43.2 ml/min; Est GFR (African American) 53.1; Est GFR (Non-African American) 45.8
[2019-01-12] MEDS: PANTOprazole 40 MG TAB PO SCH (08:04)
[2019-01-12] MEDS: metroNIDAZOLE 500 MG TAB PO SCH ×2 (08:05→21:06)
[2019-01-12] MEDS: ASCORBIC ACID 500 MG TAB PO SCH (08:05)
[2019-01-12] MEDS: POTASSIUM CHLORIDE PWD 20 MEQ PACK PO SCH ×3 (08:05→21:05)
[2019-01-12] MEDS: CHOLECALCIFEROL 1,000 UNITS TAB PO SCH (08:05)
--- NOTE | 2019-01-12 14:14 | Family Medicine Progress Note ---
Date of Service January 12, 2019 Assessment & Plan (1) Edema of lower extremity: 88 year old woman with history of Ovarian Cancer, HTN, and Gout who presents for lower limb swelling and weakness. Lower Limb Edema: -likely 2/2 venous stasis, nephrotic syndrome -CXR in ED showing no pulmonary edema; this seems unlikely to be CHF related -bilateral venous dopplers negative -CT scan demonstrating mild increase in ascites since last scan in September -known ovarian cancer, mass in central pelvis approximately 8x8x9.5 cm; increase in ascites in last CT scan in September -limited mobility and poor PO intake of late, albumin 2.0 Hypokalemia: -Potassium 2.9 in ED -Placed on 20 mEq TID -will continue to monitor Ovarian Cancer: -Diagnosed several years ago, followed by [facility] -Last chemotherapy treatment was 3 weeks ago -known ovarian cancer, mass in central pelvis approximately 8x8x9.5 cm last seen in September -CT scan demonstrating no change in mass Code: Full DVT ppx: Heparin Dispo: observe in med/surg (2) C. difficile colitis: (3) Weakness: (4) Ovarian ca: (5) Hypokalemia: Supervising Physician Co-Signing Physician Notes I personally examined the patient and verified all zuniga points of history and exam, discussed case, and agree with decision making with Dr Brock. Feels stronger. Compression seems to have helped the swelling some, does note that she had a little bit of skin breakdown with compression whenever she was at [facility]. This sounds to have been a different type of compression. She has no such skin breakdown now. She feels that she will be doing well enough to go home. She feels that she would do better with the days noticed to organize her help. Vitals noted, in general she is awake and alert pleasant no distress. HEENT normal cephalic atraumatic mucous membranes moist. Breathing unlabored no accessory muscle use good effort. Lower extremities with compression stockings on, no notable skin breakdown, edema is probably improved to about 2+. Patient is slowly but steadily able to get herself out of bed get her walker and walk into the hallway and back and then get in bed completely unassisted. Weakness/leg swellingdoes appear strong enough to go home. Lower extremity swelling is probably a little bit back pressure on her lower venous system from abdominal ascites (will ask oncology if there is anything further that can be done with this, as I doubt that a therapeutic paracentesis would last long enough to be of significant value), continue compression, continue nutrition support, continue mobility as much as possible. Dispositionhopefully home tomorrow Subjective Pt is continuing to do well this morning, feels like she has not had any change in the amount of fluid on her legs this morning. Has not had any continued problems with bowel movements overnight with maintenance of antibiotics Review of Systems Constitutional: + weakness; no fever, no chills, no sweats and no fatigue Cardiovascular: + edema (b/l LE edema); no chest pain, no dyspnea, no palpitations, no lightheadedness, no syncope and no claudication Gastrointestinal: + constipation; no abdominal pain, no nausea, no vomiting and no blood in stools Genitourinary: + urinary incontinence (chronic); no dysuria and no urinary frequency Physical Exam Constitutional: well developed, well nourished and cooperative Eyes: PERRL and EOM intact bilaterally Respiratory: normal respiratory effort and + respiratory distress Auscultation: lungs clear to auscultation bilaterally; no crackles, no rales and no wheezes Cardiovascular: Rate/Rhythm: regular rate and regular rhythm Heart Sounds: normal S1, normal S2 and + murmur (systolic ejection 2/6); no gallop and no cardiac rub Results & Data Vital Signs (Past 12 Hours) Vital Signs Temp Pulse Resp BP Pulse Ox 01/12/19 07:45 36.8 C 83 16 146/82 H 92 Laboratory Results 01/12/19 01/12/19 01/12/19 Range/Units 07:52 06:17 06:17 WBC (4.8-10.8) K/uL RBC (4.2-5.4) M/uL Hgb 10.0 L (12.0-16.0) g/dL Hct 29.8 L (37-47) % MCV (80-100) fL MCH (25-34) pg MCHC (32-36) g/dL RDW Std Deviation (36.4-46.3) fL RDW Coeff of Adan (11.5-14.5) % Plt Count (130-400) K/uL MPV (7.4-10.4) fL Immature Gran % (Auto) % Neut % (Auto) % Lymph % (Auto) % [place] % (Auto) % Eos % (Auto) % Baso % (Auto) % Immature Gran # (Auto) (0.00-0.02) K/uL Neut # (Auto) (1.4-6.5) K/uL Lymph # (Auto) (1.2-3.4) K/uL [place] # (Auto) (0.11-0.59) K/uL Eos # (Auto) (0-0.5) K/uL Baso # (Auto) (0-0.2) K/uL PT (9.0-12.0) Seconds INR (0.9-1.1) APTT (21.0-31.0) Seconds PTT Ratio Sodium 143 (136-145) mmol/L Potassium 3.4 L D (3.5-5.1) mmol/L Chloride 109 H (98-107) mmol/L Carbon Dioxide 26 (21-32) mmol/L Anion Gap 8.0 (3-11) BUN 16 (7-18) mg/dl Creatinine 1.08 (0.6-1.2) mg/dl Est Cr Clr Drug Dosing 43.2 Est GFR ( Amer) 53.1 Est GFR (Non-Af Amer) 45.8 BUN/Creatinine Ratio 14.9 (10-20) Glucose 128 H (70-99) mg/dl Lactate (0.4-2.0) mmol/L Calcium 8.1 L (8.5-10.1) mg/dl Total Bilirubin (0.2-1) mg/dl AST (15-37) U/L ALT (12-78) U/L Alkaline Phosphatase (45-117) U/L Troponin I (0-0.045) ng/ml NT-Pro-B Natriuret Pep (0-1800) pg/ml Total Protein (6.4-8.2) gm/dl Albumin (3.4-5.0) gm/dl Globulin (2.5-4.0) gm/dl Albumin/Globulin Ratio (0.9-2) Urine Color Urine Appearance (Clear) Urine pH (4.5-7.5) Ur Specific [place] (1.000-1.030) Urine Protein (Negative) Urine Glucose (UA) (Negative) Urine Ketones (Negative) Urine Blood (Negative) Urine Nitrite (Negative) Urine Bilirubin (Negative) Urine Urobilinogen (Negative) Ur Leukocyte Esterase (Negative) Urine WBC (Auto) (0-5) /hpf Urine RBC (Auto) (0-4) /hpf U Hyaline Cast (Auto) (0-5) /lpf U Epithel Cells (Auto) (0-5) /lpf Urine Bacteria (Auto) (Negative) Blood Type Antibody Screen Antibody Identification 01/11/19 01/11/19 01/11/19 Range/Units 16:45 16:12 16:12 WBC (4.8-10.8) K/uL RBC (4.2-5.4) M/uL Hgb (12.0-16.0) g/dL Hct (37-47) % MCV (80-100) fL MCH (25-34) pg MCHC (32-36) g/dL RDW Std Deviation (36.4-46.3) fL RDW Coeff of Adan (11.5-14.5) % Plt Count (130-400) K/uL MPV (7.4-10.4) fL Immature Gran % (Auto) % Neut % (Auto) % Lymph % (Auto) % [place] % (Auto) % Eos % (Auto) % Baso % (Auto) % Immature Gran # (Auto) (0.00-0.02) K/uL Neut # (Auto) (1.4-6.5) K/uL Lymph # (Auto) (1.2-3.4) K/uL [place] # (Auto) (0.11-0.59) K/uL Eos # (Auto) (0-0.5) K/uL Baso # (Auto) (0-0.2) K/uL PT (9.0-12.0) Seconds INR (0.9-1.1) APTT (21.0-31.0) Seconds PTT Ratio Sodium (136-145) mmol/L Potassium (3.5-5.1) mmol/L Chloride (98-107) mmol/L Carbon Dioxide (21-32) mmol/L Anion Gap (3-11) BUN (7-18) mg/dl Creatinine (0.6-1.2) mg/dl Est Cr Clr Drug Dosing Est GFR ( Amer) Est GFR (Non-Af Amer) BUN/Creatinine Ratio (10-20) Glucose (70-99) mg/dl Lactate 1.0 (0.4-2.0) mmol/L Calcium (8.5-10.1) mg/dl Total Bilirubin (0.2-1) mg/dl AST (15-37) U/L ALT (12-78) U/L Alkaline Phosphatase (45-117) U/L Troponin I (0-0.045) ng/ml NT-Pro-B Natriuret Pep (0-1800) pg/ml Total Protein (6.4-8.2) gm/dl Albumin (3.4-5.0) gm/dl Globulin (2.5-4.0) gm/dl Albumin/Globulin Ratio (0.9-2) Urine Color Yellow Urine Appearance Clear (Clear) Urine pH 6.0 (4.5-7.5) Ur Specific [place] 1.012 (1.000-1.030) Urine Protein Negative (Negative) Urine Glucose (UA) Negative (Negative) Urine Ketones Negative (Negative) Urine Blood Negative (Negative) Urine Nitrite Positive A (Negative) Urine Bilirubin Negative (Negative) Urine Urobilinogen Negative (Negative) Ur Leukocyte Esterase 2+ H (Negative) Urine WBC (Auto) 10-30 H (0-5) /hpf Urine RBC (Auto) 0-4 (0-4) /hpf U Hyaline Cast (Auto) 1-5 (0-5) /lpf U Epithel Cells (Auto) 5-10 H (0-5) /lpf Urine Bacteria (Auto) 4+ H (Negative) Blood Type O Negative Antibody Screen POSITIVE A Antibody Identification Anti-Fya 01/11/19 01/11/19 01/11/19 Range/Units 16:12 16:12 16:12 WBC 6.65 (4.8-10.8) K/uL RBC 2.99 L (4.2-5.4) M/uL Hgb 9.8 L (12.0-16.0) g/dL Hct 29.1 L (37-47) % MCV 97.3 (80-100) fL MCH 32.8 (25-34) pg MCHC 33.7 (32-36) g/dL RDW Std Deviation 67.1 H (36.4-46.3) fL RDW Coeff of [place]an 18.7 H (11.5-14.5) % Plt Count 268 (130-400) K/uL MPV 9.4 (7.4-10.4) fL Immature Gran % (Auto) 0.5 % Neut % (Auto) 74.9 % Lymph % (Auto) 10.7 % [place] % (Auto) 12.0 % Eos % (Auto) 1.4 % Baso % (Auto) 0.5 % Immature Gran # (Auto) 0.03 H (0.00-0.02) K/uL Neut # (Auto) 4.99 (1.4-6.5) K/uL Lymph # (Auto) 0.71 L (1.2-3.4) K/uL [place] # (Auto) 0.80 H (0.11-0.59) K/uL Eos # (Auto) 0.09 (0-0.5) K/uL Baso # (Auto) 0.03 (0-0.2) K/uL PT 11.9 (9.0-12.0) Seconds INR 1.2 H (0.9-1.1) APTT 36.9 H (21.0-31.0) Seconds PTT Ratio 1.4 Sodium 141 (136-145) mmol/L Potassium 2.9 L (3.5-5.1) mmol/L Chloride 107 (98-107) mmol/L Carbon Dioxide 26 (21-32) mmol/L Anion Gap 8.0 (3-11) BUN 17 (7-18) mg/dl Creatinine 1.14 (0.6-1.2) mg/dl Est Cr Clr Drug Dosing Not Reportable Est GFR ( Amer) 49.7 Est GFR (Non-Af Amer) 42.9 BUN/Creatinine Ratio 15.2 (10-20) Glucose 142 H (70-99) mg/dl Lactate (0.4-2.0) mmol/L Calcium 7.9 L (8.5-10.1) mg/dl Total Bilirubin 0.4 (0.2-1) mg/dl AST 20 (15-37) U/L ALT 11 L (12-78) U/L Alkaline Phosphatase 55 (45-117) U/L Troponin I 0.017 (0-0.045) ng/ml NT-Pro-B Natriuret Pep 1570 (0-1800) pg/ml Total Protein 5.6 L (6.4-8.2) gm/dl Albumin 2.0 L (3.4-5.0) gm/dl Globulin 3.6 (2.5-4.0) gm/dl Albumin/Globulin Ratio 0.6 L (0.9-2) Urine Color Urine Appearance (Clear) Urine pH (4.5-7.5) Ur Specific [place] (1.000-1.030) Urine Protein (Negative) Urine Glucose (UA) (Negative) Urine Ketones (Negative) Urine Blood (Negative) Urine Nitrite (Negative) Urine Bilirubin (Negative) Urine Urobilinogen (Negative) Ur Leukocyte Esterase (Negative) Urine WBC (Auto) (0-5) /hpf Urine RBC (Auto) (0-4) /hpf U Hyaline Cast (Auto) (0-5) /lpf U Epithel Cells (Auto) (0-5) /lpf Urine Bacteria (Auto) (Negative) Blood Type Antibody Screen Antibody Identification Medications Administered Current Inpatient Medications Acetaminophen (Tylenol) 650 mg PO Q4H PRN PRN Reason: pain/fever Stop: 02/10/19 20:24 Al Hydrox/Mg Hydrox/Simethicone (Maalox) 30 ml PO Q6H PRN PRN Reason: Dyspepsia Stop: 02/10/19 20:24 Last Admin: 01/12/19 00:17 Dose: 30 ml Documented by: Ascorbic Acid (Vitamin C) 500 mg PO DAILY [facility] Stop: 02/11/19 08:59 Last Admin: 01/12/19 08:05 Dose: 500 mg Documented by: Heparin Sodium (Porcine) (Heparin Sodium (Porcine)) 5,000 units SQ Q8 [facility] Stop: 02/10/19 21:59 Last Admin: 01/12/19 13:25 Dose: 5,000 units Documented by: Ioversol (Optiray 320 100ml) 94 ml IV ONCE PRN PRN Reason: Interaction Checking Stop: 01/15/19 20:48 Last Admin: 01/11/19 20:50 Dose: 94 ml Documented by: Magnesium Hydroxide (Milk Of Magnesia) 30 ml PO Q6H PRN PRN Reason: Constipation Stop: 02/10/19 20:24 Metronidazole (Flagyl) 500 mg PO BID [facility] Stop: 01/21/19 20:59 Last Admin: 01/12/19 08:05 Dose: 500 mg Documented by: Ondansetron HCl (Zofran) 4 mg IV Q4H PRN PRN Reason: Nausea Stop: 02/11/19 06:45 Last Admin: 01/12/19 08:04 Dose: 4 mg Documented by: Pantoprazole Sodium (Protonix) 40 mg PO QAM [facility] Stop: 02/11/19 08:59 Last Admin: 01/12/19 08:04 Dose: 40 mg Documented by: Polyethylene Glycol (Miralax Powder Packet) 17 gm PO DAILY PRN PRN Reason: Constipation Stop: 02/10/19 20:24 Potassium Chloride (Klor-Con Pwd) 20 meq PO TID [facility] Stop: 02/10/19 20:59 Last Admin: 01/12/19 13:25 Dose: 20 meq Documented by: Vitamin D (Vitamin D3) 1,000 units PO DAILY [facility] Stop: 02/11/19 08:59 Last Admin: 01/12/19 08:05 Dose: 1,000 units Documented by: PG Care Time/CCT Total # of Minutes Spent Total Time Spent with Patient: Total time spent is greater than 50% in coordination of care (as documented) at patient's floor/unit and/or counseling patient: Resident Activity Tracking Resident Involvement: Resident Care Provided Care Provided: Adult Hospital Medicine
[2019-01-12] MEDS ORDERED: HEPARIN 100 UNIT/ML 5ML FLUSH FLUSH PRN (23:05)
[2019-01-13] MEDS: HEPARIN SOD 5,000 UNIT/0.5 ML VIAL SQ SCH ×2 (06:28→13:32)
[2019-01-13 06:46] LABS: Hematocrit (blood only) 26.3 % (37-47); Hemoglobin 8.7 g/dL (12.0-16.0)
[2019-01-13 07:18] LABS: BUN Creatinine Ratio 14.3 (10-20); Calcium 7.7 mg/dl (8.5-10.1); Creatinine Clr Calc Pharmacy 39.2 ml/min; Est GFR (African American) 47.2; Est GFR (Non-African American) 40.7; Potassium 3.8 mmol/L (3.5-5.1)
[2019-01-13] MEDS: POTASSIUM CHLORIDE PWD 20 MEQ PACK PO SCH ×2 (08:17→13:32)
[2019-01-13] MEDS: CHOLECALCIFEROL 1,000 UNITS TAB PO SCH (08:17)
[2019-01-13] MEDS: metroNIDAZOLE 500 MG TAB PO SCH (08:17)
[2019-01-13] MEDS: ASCORBIC ACID 500 MG TAB PO SCH (08:17)
[2019-01-13] MEDS: PANTOprazole 40 MG TAB PO SCH (08:17)
--- NOTE | 2019-01-13 14:39 | Discharge Summary ---
Date of Service January 13, 2019 Admission HPI Per Admitting Provider Debra Tse is an 88 year old woman with a past medical history ovarian cancer, hypertension, and gout who presents today with weakness. She was recently hospitalized in late November for weakness after her chemotherapy treatment. She was treated for a UTI and right sided pneumonia treated initially with IV zosyn and vancomycin and was discharged to finish a ten day course of augmentin. She was discharged to [facility] and returned home this past . She tells me that in the middle of her stay at [facility] she developed bilateral lower limb edema, this has continued to progress and now she is noticing some weakness and heaviness of her legs causing her difficulty in ambulation which is why she presented here to the hospital today. She has not had any falls, any shortness of breath, chest pain, fatigue on exertion, palpitations or any other troubling symptoms. She is not having any pain or tenderness of the lower limbs, and they do not feel warm. She has not been ambulating much at all. She lives at home alone in a two story house. She has not been able to be upstairs since before her last admission. She is renting a hospital bed for downstairs currently and using the half bath there. Her family has come to check on her occasionally and cook her batches of meals. She denies any salt intake and tells me she has only eaten home made food and that her daughter has not used any salt. She is currently just taking just vitamins, pantoprazole and metronidazole for a Clostridium Difficile infection she was diagnosed with while at [facility]. Had loose stools initially, but has not had any loose stools in several days in fact she reports constipation for which she has been drinking prune juice. Discharge Data Consultations 01/11/19 17:47 ED Decision to Admit Stat 01/11/19 20:30 Consult Case Management - Discharge Planning Routine 01/12/19 11:12 Consult Oncology Routine Hospital Course (1) Edema of lower extremity: 88 year old woman with history of Ovarian Cancer, HTN, and Gout who presents for lower limb swelling and weakness. Lower Limb Edema: -likely 2/2 venous stasis, nephrotic syndrome (albumin 2.0 on admission) -CXR in ED demonstrated no pulmonary edema -bilateral venous dopplers negative -CT scan demonstrated mild increase in ascites since last scan in September -known ovarian cancer, mass in central pelvis approximately 8x8x9.5 cm; increase in ascites in last CT scan in September -limited mobility and poor PO intake of late, albumin 2.0 -due to pt mobility and difficulty arranging transport, pt may benefit from in- home visits. Ovarian Cancer: -Diagnosed several years ago, followed by [facility] -Last chemotherapy treatment was 3 weeks ago -known ovarian cancer, mass in central pelvis approximately 8x8x9.5 cm last seen in September -CT scan demonstrating no change in pelvic mass -discussions with patient included: future orientation towards custodial abilities at home, and deliberation about places that would be ideal/acceptable should the time come that she needs more dedicated care. C. difficile colitis: -continue Metronidazole until 01/21 for completion of antibiotic course Code: Full (2) C. difficile colitis: (3) Weakness: (4) Ovarian ca: (5) Hypokalemia: Supervising Physician Co-Signing Physician Notes I personally examined the patient and verified all zuniga points of history and exam, discussed case, and agree with decision making with Dr Brock. Wants to go home but is nervous about going home. Knows that she will likely need long-term care soon, but does not want to get there now. He expresses understanding that the swelling in her legs will likely not improve dramatically, but otherwise seems to have a hard time understanding why the fluid is they are in spite of my 3-4 different repetitions of trying to explain the etiologies. Vitals noted, in general she is awake and alert pleasant but somewhat anxious no distress. HEENT normal cephalic atraumatic mucous membranes moist. Breathing unlabored no accessory muscle use good effort. Lower extremities with compression stockings on, no notable skin breakdown, edema better than admission Weakness/leg swellingdoes appear strong enough to go home. Lower extremity swelling is probably a little bit back pressure on her lower venous system from abdominal ascites, as well and has low oncotic pressure from malnutrition, as well as poor venous compression from her general lack of movement. continue compression, continue nutrition support, continue mobility as much as possible. Ascites will probably need to be viewed as a "constant" given that diuretics or paracenteses would more likely cause harm than good by causing volume depletion. Stable for home. Dispositioncautiously home Resident Activity Tracking Resident Involvement: Resident Care Provided Care Provided: Adult [facility]
--- NOTE | 2019-01-13 14:57 | Oncology Consultation ---
Date of Consultation January 13, 2019 Assessment & Plan (1) Weakness: Ms. Tse's weakness seems multifactorial. She's had a series of serious infections in the last 4 weeks which have clearly taken a toll on her stamina and conditioning. Her ascites is also making it difficult for her to eat, which is exacerbating her nutritional issues and making it more difficult for her to recover. She is very edematous and has large-volume ascites. We could try to address some of that with diuretics, but she just had an ANNI during her previous stay and I worry that pulling fluid off in her low albumin state will just lead to dehydration. Her cancer appears to be mostly stable, so I don't think that is necessarily the reason she is so weak, though it is certainly not helping and is likely the underlying origin of all of these issues. For now, she needs to focus on strength and conditioning. Whether she needs to be placed or can go home with PT will need to be determined. However, we will delay her treatment for now while she recovers. She has a positive urine culture as well, though she is totally asymptomatic. This likely represents asymptomatic bacteriuria and does not necessarily need to be treated. If she does start manifesting infectious symptoms, I will treat her as an outpatient. Present on Admission?: Yes (2) Ovarian cancer: Her disease is stable by scans. As noted above, I am sure that her cancer is playing a role in her current debilitated state. However, I'm not sure active progression is the proximate cause. We will suspend her treatment for now until she is a bit stronger. We will see her in the office next week to discuss next steps. Present on Admission?: Yes History of Present Illness Reason for Consultation: Ovarian cancer Ascites Generalized fatigue Attending Physician: Wiliam Mcwilliams DO History of Present Illness Ms. Tse follows with me for management of her ovarian cancer. She is an 88 year old woman with a history of mucinous adenocarcioma of the left ovary. She was initially diagnosed in 2012 and has had multiple recurrences. Her most recent recurrence was in March,. Since that time, she has been on a series of chemotherapy regimens for stebbins-resistant ovarian cancer, most recently single-agent gemcitabine, starting in June of this year. She has had a response, with a modest reduction in both her CA 125 and her measurable disease by CT. However, over the last month, she's had a series of health setbacks related to infections. She was admitted from 12/14-12/19 for concurrent pneumonia and klebsiella UTI. She was discharged to rehab on Augmentin. However, she then developed C diff colitis and has been on Flagyl. She was discharged home from [facility] and was working with home PT. However, she came to the ER on 01/11 because of several issues, including generalized weakness and worsening ascites and pedal edema. She was given some electrolyte repletion and has been working with PT. A CT of her abdomen and pelvis showed stable to modestly improved masses in her abdomen, though with a significant increase in ascites. She has had a difficult time eating because of her ascites. She also has been very weak and lethargic. She expressed concern to me about being stable at home. Since her first admission last month, she has spent a good amount of time in bed, though she was also able to participate in rehab. She denies any pain, fevers, bleeding, or diarrhea. Allergies Allergy/AdvReac Type Severity Reaction Status Date / Time No Known Allergies Allergy Verified 12/24/18 07:24 Home Medications Home Medications Medication Instructions Recorded Confirmed Type ascorbic acid (vitamin C) [Vitamin 500 mg PO DAILY 12/14/18 01/11/19 History C] cholecalciferol (vitamin D3) 1,000 unit PO DAILY 12/14/18 01/11/19 History [Vitamin D3] pantoprazole 40 mg PO QAM 12/14/18 01/11/19 History acetaminophen [Tylenol] 325 mg PO QID PRN 12/24/18 01/11/19 History metronidazole 500 mg PO BID 01/11/19 01/11/19 History Patient History Medical History Ovarian ca (Chronic) Low hemoglobin Anemia (Acute) Arthritis (Acute) Gout (Acute) History of hysterectomy (Acute) tumors removed from uterine area Acid reflux Ankle fracture HTN (hypertension) Hiatal hernia Ovarian cancer Prediabetes Family History Other No significant family history Social History Preferred Language: Malian Communication Ability: Effective Complaint Evaluation Supervisor Required: No Beliefs That Will Affect Care: None Current Living Situation: Alone Other Information That Helps Us Care for You: No Feels Safe at Home: Yes Safety Concerns: Feels Safe At This Time Smoking Status: Never smoker Hx Alcohol Use: No Hx Substance Use: No Review of Systems Constitutional: + fatigue and + weakness (generalized); no fever Respiratory: no cough and no dyspnea Cardiovascular: + edema; no chest pain Gastrointestinal: + belching and + bloating; no abdominal pain and no diarrhea/loose stools Musculoskeletal: no back pain Integumentary: no rash Neurologic: no dizziness and no headache(s) Hematologic / Lymphatic: no easy bleeding Physical Exam Constitutional: + ill appearing and + thin; no acute distress Eyes: + anicteric sclerae and EOM intact bilaterally ENMT: external ear and nose normal, oropharynx normal Respiratory: normal respiratory effort, lungs clear to auscultation Cardiovascular: Rate/Rhythm: regular rate and regular rhythm Extremities: + pedal edema (2+ to calves bilaterally) Gastrointestinal (Abdomen): Inspection/Auscultation: + abdomen distended and normal bowel sounds Percussion/Palpation: abdomen soft; abdomen nontender Skin: no rashes, warm and dry Psychiatric: A+Ox3, euthymic affect Lymphatic: no cervical or axillary lymphadenopathy Results & Data Vital Signs (Past 12 Hours) Vital Signs Temp Pulse Resp BP Pulse Ox 01/13/19 07:44 37.1 C 84 16 129/74 93 Laboratory Results Laboratory Tests 12/19/18 01/11/19 01/11/19 05:42 16:12 16:12 WBC 6.65 Hgb 9.8 L Plt Count 268 Potassium 2.9 L Creatinine 2.19 H 1.14 Albumin 2.0 L 01/13/19 05:53 WBC Hgb Plt Count Potassium 3.8 Creatinine Albumin Her UA is still inflammatory appearing and a urine culture grew out the same Klebsiella species as during her visit in late November Diagnostic Findings CT A/P 01/11/19: IMPRESSION: 1. No evidence of bowel obstruction. No evidence of free air 2. Persistent large 9 cm pelvic mass, consistent with neoplasm. 3. 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 Large volume of ascites 5. Cholelithiasis 6. Large hiatal hernia 7. Interval development of bilateral pleural effusions (1) Ovarian cancer Laterality: unspecified laterality Qualified Code(s): C56.9 - Malignant neoplasm of unspecified ovary
== END 2019-01-13 15:35 | disposition home health service (06) ==
LOC: 3N 15:25 → ED 15:25 → 3N 19:42

== ENCOUNTER 2019-01-20 06:08 | Inpatient (IN) ==
[2019-01-20 06:54] LABS: Basophils # (auto) 0.03 K/uL (0-0.2); Basophils % (auto) 0.4 %; Eosinophils # (auto) 0.07 K/uL (0-0.5); Hematocrit (blood only) 30.3 % (37-47); Immature Granulocytes # (auto) 0.02 K/uL (0.00-0.02); Immature Granulocytes % (auto) 0.3 %; Lymphocytes # (auto) 0.74 K/uL (1.2-3.4); Lymphocytes % (auto) 10.6 %; Mean Corpuscular Hemoglobin 32.9 pg (25-34); Mean Corpuscular Volume 99.7 fL (80-100); Mean Platelet Volume 9.4 fL (7.4-10.4); Monocytes # (auto) 0.75 K/uL (0.11-0.59); Monocytes % (auto) 10.7 %; Neutrophils # (auto) 5.38 K/uL (1.4-6.5); Platelet Count 218 K/uL (130-400); RDW Coefficient of Variation 18.2 % (11.5-14.5); RDW Standard Deviation 66.6 fL (36.4-46.3); Red Blood Count 3.04 M/uL (4.2-5.4); White Blood Count 6.99 K/uL (4.8-10.8)
--- NOTE | 2019-01-20 06:57 | XRay Report ---
XR chest 1V portable CLINICAL HISTORY: cough dyspnea COMPARISON STUDY: 01/19/2019 FINDINGS: Moderate stable cardiomegaly. Fixed hiatal hernia. Chronic linear parenchymal scarring left lung base. No evidence for acute infiltrate. Pre-existing chronic atelectatic change medial right ba se. Central catheter in superior vena cava. IMPRESSION: Chronic change. Fixed hiatal hernia. Stable mild cardiomegaly. The above report was generated using voice recognition software. It may contain grammatical, syntax or spelling errors. Electronically signed by: Eugene Castellon M.D. 01/20/2019 6:56 AM
[2019-01-20 07:10] LABS: Alanine Aminotransferase 8 U/L (12-78); Aspartate Aminotransferase 16 U/L (15-37); BUN Creatinine Ratio 19.5 (10-20); Blood Urea Nitrogen 20 mg/dl (7-18); Carbon Dioxide 29 mmol/L (21-32); Chloride 106 mmol/L (98-107); Est GFR (African American) 56.9; Est GFR (Non-African American) 49.1; Glucose 142 mg/dl (70-99); Potassium 3.5 mmol/L (3.5-5.1); Sodium 141 mmol/L (136-145)
[2019-01-20 07:14] LABS: INR 1.1 (0.9-1.1); Partial Thromboplastin Ratio 2.2; Prothrombin Time 11.3 Seconds (9.0-12.0)
[2019-01-20 07:15] LABS: Albumin Globulin Ratio 0.6 (0.9-2); Alkaline Phosphatase 49 U/L (45-117); Bilirubin,Total 0.4 mg/dl (0.2-1); Globulin 3.6 gm/dl (2.5-4.0); Total Protein 5.6 gm/dl (6.4-8.2); Troponin I < 0.015 ng/ml (0-0.045)
[2019-01-20 07:19] LABS: Partial Thromboplastin Time 58.6 Seconds (21.0-31.0)
[2019-01-20] MEDS ORDERED: PANTOprazole 80 MG in DEXTROSE 5% 100 ML IV SCH (07:30)
[2019-01-20] MEDS ORDERED: OPTIRAY 320 125ml IV PRN (07:54)
--- NOTE | 2019-01-20 08:15 | CT Scan Report ---
ABDOMEN AND PELVIS CT WITH IV CONTRAST CT DOSE: 963.57 mGy.cm HISTORY: Generalized abdominal pain. TECHNIQUE: Multiaxial CT images of the abdomen and pelvis were performed following the use of intrave nous contrast. A dose lowering technique was utilized adhering to the principles of ALARA. COMPARISON STUDY: Abdomen and pelvis CT 01/11/2019. FINDINGS: No change in the small bilateral pleural effusions and posterior lower lobe consolidation s uggestive of compressive atelectasis. Large hiatus hernia containing the majority of stomach and a mo derate amount of fluid. This is also unchanged. Diffuse body wall edema. Nodular contour to the liver consistent with cirrhosis. No hepatic or splenic masses. Large amount of ascites, unchanged. The adr enal glands are unremarkable. No hydronephrosis. Stable bilateral renal hypodense lesions. These favo r cysts. Cholelithiasis. No gallbladder wall thickening. No evidence for bowel obstruction. The bladd er is unremarkable. Mass effect and narrowing within the distal sigmoid colon due to the large hetero geneous mass within the deep pelvis. This remains unchanged. The heterogeneous mass measures approxim ately 8.7 cm. Moderate well-formed stool within the colon. No bowel wall thickening or obstruction. T he visualized appendix appears unremarkable. Subtle nodularity along the right lower quadrant omentum . These findings are consistent with peritoneal carcinomatosis. A few additional scattered peritoneal nodules are noted with the largest posterior to the liver measuring 2.1 cm. The uterus appears surgi león absent. Hypodense lesions within the pancreas favor cystic lesions. This remains unchanged. IMPRESSION: 1. Overall, no significant change compared to the prior study. 2. Multiple peritoneal deposits are again noted consistent with metastatic disease. 3. Large amount of ascites, unchanged. 4. Small bilateral pleural effusions persist. 5. No bowel wall thickening or obstruction. 6. The visualized appendix appears unremarkable. 7. Cholelithiasis. Electronically signed by: Rojas Walker M.D. 01/20/2019 8:14 AM
[2019-01-20] MEDS: PANTOprazole 40 MG in DEXTROSE 5% 100 ML IV SCH ×3 (08:16→19:35)
--- NOTE | 2019-01-20 10:11 | Gastrointestinal Consultation ---
Date of Consultation January 20, 2019 Assessment & Plan (1) Coffee ground emesis: 88 year old female w/ history of HTN, gout, recent c.diff infection completed ABX therapy w/ Flagyl, mucinous adenocarcioma of the left ovary diagnosed in 2012 w/ disease recurrence on chemotherapy who presented through the ED with three episodes of coffee ground emesis prior to arrival after coughing spell. She does have a history of GERD, large HH on imaging, ?cirrhosis on CT. DDX discussed to include heena erosin, brannon patel tear, esophagitis, gastritis, PUD, less likely variceal hemorrhage She is awake, alert and oriented w/ stable BP, pulse w/o drop in HGB or bump in BUN and noted semi-formed brown stools. She appears hesitant in regards to pursuit of endoscopy but notes if emergently indicated she would be agreeable to this intervention - NPO - Agree w/ IV PPI bolus and drip (this appears ordered) - Trend H&H - Transfuse PRN per primary service - Daily BMP - Monitor and document all GI output No current plan for EGD today given emesis this AM, stable HGB, vitals. I would ask to keep Ms. Tse NPO today and after midnight in the event endoscopy is urgently indicated. Thank you for allowing us to participate in the care of this patient. Please call with any acute changes, questions or concerns. Please see addendum below with additional recommendation from my supervising physician. Present on Admission?: Yes Supervising Physician Co-Signing Physician Notes I have personally seen and examined the patient with JOE Cancino. Her note reflects my exam and findings. I agree with her impression and plan. Stable H/H. No indication for endoscopy since it would not change recommendations or care. Cont PPI. Jose De Jesus Borges M.D. History of Present Illness Reason for Consultation: hematemesis Requesting Physician: Virginie Attending Physician: Virginie History of Present Illness 88 year old female with history of HTN, gout, recent c.diff infection completed ABX therapy, mucinous adenocarcioma of the left ovary diagnosed in 2012 w/ disease recurrence on chemotherapy following w/ oncology who presents through the ED For evaluation of dark emesis. Pt was seen in the ED, family at bedside. This is cross coverage for [facility] as Dr. Infante was consulted. Pt notes that she has had GERD for years. Previously on PPI therapy. This was stopped about 1 year ago and she had been using OTC tums or Zantac PRN. She notes that she was recently started back on pantoprazole for her GERD about 1-2 months ago but overall symptoms unchanged. Endorses reflux, regurgitation. No dysphagia. Does not typically have nausea, vomiting but has had some dull, upper abdominal pain and burning. Last evening suggests she woke up with a coughing spell followed by an episode of vomiting. She suggests she had three episodes, all three being dark brown/black in color. Denies any hematemesis or any bright red blood streaking in the vomit. Family at bedside also deny. Last episode of emesis was prior to arrival around 0600. She notes recent completion of ABX therapy for c.diff infection. Since completion, has been having soft, semi-formed brown stools 1-2 times daily. Denies any current or prior episodes of black/bloody stools. No lightheadedness, dizziness, CP, SOB. CT: Overall, no significant change compared to the prior study. Multiple peritoneal deposits are again noted consistent with metastatic disease. Large amount of ascites, unchanged. Small bilateral pleural effusions persist. No bowel wall thickening or obstruction.The visualized appendix appears unremarkable. Cholelithiasis. Large hiatus hernia containing the majority of stomach. Diffuse body wall edema. Nodular contour to the liver consistent with cirrhosis. No hepatic or splenic masses EGD/Colonoscopy: none Allergies Allergy/AdvReac Type Severity Reaction Status Date / Time No Known Allergies Allergy Verified 01/20/19 06:38 Home Medications Home Medications Medication Instructions Recorded Confirmed Type ascorbic acid (vitamin C) [Vitamin 500 mg PO DAILY 12/14/18 01/20/19 History C] cholecalciferol (vitamin D3) 1,000 unit PO DAILY 12/14/18 01/20/19 History [Vitamin D3] pantoprazole 40 mg PO QAM 12/14/18 01/20/19 History acetaminophen [Tylenol] 325 mg PO QID PRN 12/24/18 01/20/19 History Patient History Medical History Ovarian ca (Chronic) Anemia (Acute) Arthritis (Acute) Gout (Acute) History of hysterectomy (Acute) tumors removed from uterine area Acid reflux Ankle fracture HTN (hypertension) Hiatal hernia Low hemoglobin Ovarian cancer Prediabetes Family History Other No significant family history Social History Preferred Language: Indonesian Communication Ability: Effective Sweet Dough Mixer Required: No Beliefs That Will Affect Care: None Current Living Situation: Alone Other Information That Helps Us Care for You: No Feels Safe at Home: Yes Safety Concerns: Feels Safe At This Time Smoking Status: Never smoker Hx Alcohol Use: No Hx Substance Use: No Review of Systems Constitutional: no fever, no chills and no fatigue Respiratory: no cough, no dyspnea and no wheezing Cardiovascular: no chest pain, no dyspnea and no orthopnea Gastrointestinal: + abdominal pain and + coffee ground emesis (prior to arrival); no bloating, no nausea, no hematemesis, no dysphagia, no cramping, no change in bowel habits, no change in stools, no diarrhea/loose stools, no fecal incontinence, no blood in stools and no melena Physical Exam Constitutional: + ill appearing (chronically ill) Neck: trachea midline Respiratory: normal respiratory effort, lungs clear to auscultation Cardiovascular: Rate/Rhythm: regular rate and regular rhythm Gastrointestinal (Abdomen): Inspection/Auscultation: + abdomen distended and normal bowel sounds Percussion/Palpation: abdomen soft; abdomen nontender, no guarding and abdomen not rigid Skin: no rashes, warm and dry Results & Data Vital Signs (Past 12 Hours) Vital Signs Temp Pulse Pulse Resp BP BP Pulse Ox 01/20/19 10:00 72 16 128/81 97 01/20/19 09:05 76 16 148/76 H 94 01/20/19 08:17 87 L 01/20/19 08:16 76 16 140/73 87 L 01/20/19 07:03 78 16 133/75 91 01/20/19 06:38 81 19 135/76 90 01/20/19 06:33 92 01/20/19 06:08 36.7 C 75 28 H 151/75 H 93 Laboratory Results 01/20/19 01/20/19 01/20/19 Range/Units 06:41 06:41 06:41 WBC (4.8-10.8) K/uL RBC (4.2-5.4) M/uL Hgb (12.0-16.0) g/dL Hct (37-47) % MCV (80-100) fL MCH (25-34) pg MCHC (32-36) g/dL RDW Std Deviation (36.4-46.3) fL RDW Coeff of Adan (11.5-14.5) % Plt Count (130-400) K/uL MPV (7.4-10.4) fL Immature Gran % (Auto) % Neut % (Auto) % Lymph % (Auto) % [place] % (Auto) % Eos % (Auto) % Baso % (Auto) % Immature Gran # (Auto) (0.00-0.02) K/uL Neut # (Auto) (1.4-6.5) K/uL Lymph # (Auto) (1.2-3.4) K/uL [place] # (Auto) (0.11-0.59) K/uL Eos # (Auto) (0-0.5) K/uL Baso # (Auto) (0-0.2) K/uL PT 11.3 (9.0-12.0) Seconds INR 1.1 (0.9-1.1) APTT 58.6 H* (21.0-31.0) Seconds PTT Ratio 2.2 Sodium 141 (136-145) mmol/L Potassium 3.5 (3.5-5.1) mmol/L Chloride 106 (98-107) mmol/L Carbon Dioxide 29 (21-32) mmol/L Anion Gap 5.0 (3-11) BUN 20 H (7-18) mg/dl Creatinine 1.02 (0.6-1.2) mg/dl Est Cr Clr Drug Dosing 46.0 ml/min Est GFR ( Amer) 56.9 Est GFR (Non-Af Amer) 49.1 BUN/Creatinine Ratio 19.5 (10-20) Glucose 142 H (70-99) mg/dl Calcium 9.0 (8.5-10.1) mg/dl Total Bilirubin 0.4 (0.2-1) mg/dl AST 16 (15-37) U/L ALT 8 L (12-78) U/L Alkaline Phosphatase 49 (45-117) U/L Troponin I < 0.015 (0-0.045) ng/ml Total Protein 5.6 L (6.4-8.2) gm/dl Albumin 2.0 L (3.4-5.0) gm/dl Globulin 3.6 (2.5-4.0) gm/dl Albumin/Globulin Ratio 0.6 L (0.9-2) Blood Type O Negative Antibody Screen POSITIVE A Antibody Identification Anti-Fya Antibody ID Comment Pending 01/20/19 Range/Units 06:41 WBC 6.99 (4.8-10.8) K/uL RBC 3.04 L (4.2-5.4) M/uL Hgb 10.0 L (12.0-16.0) g/dL Hct 30.3 L (37-47) % MCV 99.7 (80-100) fL MCH 32.9 (25-34) pg MCHC 33.0 (32-36) g/dL RDW Std Deviation 66.6 H (36.4-46.3) fL RDW Coeff of Adan 18.2 H (11.5-14.5) % Plt Count 218 (130-400) K/uL MPV 9.4 (7.4-10.4) fL Immature Gran % (Auto) 0.3 % Neut % (Auto) 77.0 % Lymph % (Auto) 10.6 % [place] % (Auto) 10.7 % Eos % (Auto) 1.0 % Baso % (Auto) 0.4 % Immature Gran # (Auto) 0.02 (0.00-0.02) K/uL Neut # (Auto) 5.38 (1.4-6.5) K/uL Lymph # (Auto) 0.74 L (1.2-3.4) K/uL [place] # (Auto) 0.75 H (0.11-0.59) K/uL Eos # (Auto) 0.07 (0-0.5) K/uL Baso # (Auto) 0.03 (0-0.2) K/uL PT (9.0-12.0) Seconds INR (0.9-1.1) APTT (21.0-31.0) Seconds PTT Ratio Sodium (136-145) mmol/L Potassium (3.5-5.1) mmol/L Chloride (98-107) mmol/L Carbon Dioxide (21-32) mmol/L Anion Gap (3-11) BUN (7-18) mg/dl Creatinine (0.6-1.2) mg/dl Est Cr Clr Drug Dosing ml/min Est GFR ( Amer) Est GFR (Non-Af Amer) BUN/Creatinine Ratio (10-20) Glucose (70-99) mg/dl Calcium (8.5-10.1) mg/dl Total Bilirubin (0.2-1) mg/dl AST (15-37) U/L ALT (12-78) U/L Alkaline Phosphatase (45-117) U/L Troponin I (0-0.045) ng/ml Total Protein (6.4-8.2) gm/dl Albumin (3.4-5.0) gm/dl Globulin (2.5-4.0) gm/dl Albumin/Globulin Ratio (0.9-2) Blood Type Antibody Screen Antibody Identification Antibody ID Comment
[2019-01-20] MEDS ORDERED: MAGNESIUM HYDROXIDE SUSP 30 ML UDC PO PRN (11:02)
[2019-01-20] MEDS ORDERED: ACETAMINOPHEN 1,000 MG/100 ML VIAL IV PRN (11:02)
[2019-01-20] MEDS ORDERED: POLYETHYLENE (MIRALAX) 17 GM PACK PO PRN (11:02)
[2019-01-20] MEDS ORDERED: HEPARIN 100 UNIT/ML 5ML FLUSH FLUSH SCH (11:30)
[2019-01-20 12:07] LABS: Hematocrit (blood only) 28.6 % (37-47); Hemoglobin 9.5 g/dL (12.0-16.0)
[2019-01-20 12:17] LABS: Partial Thromboplastin Ratio 0.9; Partial Thromboplastin Time 23.6 Seconds (21.0-31.0)
--- NOTE | 2019-01-20 13:31 | Emergency Department Note ---
Entered by Анна Ortega acting as a scribe for Wiliam Alvarado DO History of Present Illness General Chief complaint: GI Assessment Stated complaint: GI ASSESSMENT/PAIN BETWEEN SHOULDER BLADES Source: patient and family History of Present Illness Provider complaint: vomiting blood Onset (ago): hour(s) 10 Location: abdomen Pain Consistency: + intermittent Maximum Pain Intensity: 0 Relieved By: + rest Associated symptoms: + denies other symptoms; no shortness of breath The patient is an 88 y/o female with a history of ovarian cancer, HTN, nephrotic syndrome, and C-diff, who presents to the emergency department for evaluation intermittent vomiting of dark brown liquid that began 10 hours ago. The patient states that she had several bouts of vomiting that totaled roughly 5 episodes. She notes last evening having back pain between the shoulder blades that is now resolved. The patients family reports that she has been in the hospital several times over the past month for anemia, weakness, and chemotherapy. The patient states that her last dose of chemotherapy was at the end of November. She reports that there is currently more fluid in her abdomen than normal and more swelling in legs. The patient denies shortness of breath and any other symptoms. She does take heparin injections. Home Medications Home Medications Medication Instructions Recorded Confirmed Type ascorbic acid (vitamin C) [Vitamin 500 mg PO DAILY 12/14/18 01/20/19 History C] cholecalciferol (vitamin D3) 1,000 unit PO DAILY 12/14/18 01/20/19 History [Vitamin D3] pantoprazole 40 mg PO QAM 12/14/18 01/20/19 History acetaminophen [Tylenol] 325 mg PO QID PRN 12/24/18 01/20/19 History Allergies Allergy/AdvReac Type Severity Reaction Status Date / Time No Known Allergies Allergy Verified 01/20/19 06:38 Past Med/Surg History Medical History Ovarian ca (Chronic) Anemia (Acute) Arthritis (Acute) Gout (Acute) History of hysterectomy (Acute) tumors removed from uterine area Acid reflux Ankle fracture HTN (hypertension) Hiatal hernia Low hemoglobin Ovarian cancer Prediabetes Family History Other No significant family history Social History Preferred Language: Yakut Communication Ability: Effective Photographic Supervisor Required: No Beliefs That Will Affect Care: None Current Living Situation: Alone Other Information That Helps Us Care for You: No Feels Safe at Home: Yes Safety Concerns: Feels Safe At This Time Smoking Status: Never smoker Hx Alcohol Use: No Hx Substance Use: No Review of Systems See HPI for pertinent positives & negatives. and A total of 10 systems reviewed and were otherwise negative Physical Exam Vital Signs Vital Signs - 24 hr 01/20/19 06:08 01/20/19 06:33 01/20/19 06:38 Temperature 36.7 C Temperature Source Oral Sepsis Recent Fever Within 48 Hours No Sepsis New/Unexplained Change in Mental Status No Sepsis Action Taken by Nursing No Action Required Oxygen Flow Rate - Titration Pulse Oximetry Post Tiitration Pulse Rate 75 Pulse Rate [Apical] 81 Respiratory Rate 28 H 19 Respiratory Depth Normal Blood Pressure 151/75 H Blood Pressure [Right Arm] 135/76 Blood Pressure Mean 100 Blood Pressure Mean [Right Arm] 95 Pulse Oximetry 93 92 90 Oxygen Delivery Method Room Air Room Air Room Air Oxygen Flow Rate 01/20/19 07:03 01/20/19 08:16 01/20/19 08:17 Temperature Temperature Source Sepsis Recent Fever Within 48 Hours Sepsis New/Unexplained Change in Mental Status Sepsis Action Taken by Nursing Oxygen Flow Rate - Titration 2 Pulse Oximetry Post Tiitration 97 Pulse Rate Pulse Rate [Apical] 78 76 Respiratory Rate 16 16 Respiratory Depth Blood Pressure Blood Pressure [Right Arm] 133/75 140/73 Blood Pressure Mean Blood Pressure Mean [Right Arm] 94 95 Pulse Oximetry 91 87 L 87 L Oxygen Delivery Method Room Air Room Air Nasal Cannula Oxygen Flow Rate 0 01/20/19 08:22 01/20/19 09:05 Temperature Temperature Source Sepsis Recent Fever Within 48 Hours Sepsis New/Unexplained Change in Mental Status Sepsis Action Taken by Nursing Oxygen Flow Rate - Titration Pulse Oximetry Post Tiitration Pulse Rate Pulse Rate [Apical] 76 Respiratory Rate 16 Respiratory Depth Blood Pressure Blood Pressure [Right Arm] 148/76 H Blood Pressure Mean Blood Pressure Mean [Right Arm] 100 Pulse Oximetry 94 Oxygen Delivery Method Nasal Cannula Nasal Cannula Oxygen Flow Rate 2 2 GENERAL: Sitting up in bed, alert, chronically ill appearing, Dried blood on left neck EYE EXAM: normal conjunctiva. PERRL and EOM's grossly intact. OROPHARYNX: no exudate, no erythema, lips, buccal mucosa, and tongue normal and mucous membranes are moist NECK: supple, no nuchal rigidity, no adenopathy, non-tender LUNGS: Clear to auscultation. Normal chest wall mechanics CHEST: Port in left upper chest wall. HEART: Positive LUIS, S1 normal and S2 normal. ABDOMEN: abdomen soft, Distended, non-tender, normo-active bowel sounds, no masses, no rebound or guarding. BACK: Back is symmetrical on inspection and there is no deformity, no midline tenderness, no CVA tenderness. SKIN: no rashes and no bruising UPPER EXTREMITIES: upper extremities are grossly normal. LOWER EXTREMITIES: Bilateral pitting edema. NEURO EXAM: Normal sensorium, cranial nerves II-XII grossly intact, normal speech, no gross weakness of arms, no gross weakness of legs. Course ED COURSE: Vital signs were reviewed and were hypertensive situationally The patients medical record was reviewed The above diagnostic studies were performed and reviewed. ED treatments and interventions as stated above. 0639: The patient was evaluated in room A03. A complete history and physical examination was performed. 0838: I updated the patient. I discussed my findings with the patient and she understands and agrees with the treatment plan. 0845: [facility] [place] will evaluate for further management. Based on the patients age, coexisting illnesses, exam and lab findings the decision to treat as an inpatient was made. The patient remained stable while under my care. The patient will be evaluated for further management. Administered Medications Pantoprazole Sodium 40 mg/ (Dextrose) 100 mls @ 20 mls/hr IV Q5H [facility] Stop: 02/19/19 07:44 Last Admin: 01/20/19 08:16 Dose: 20 mls/hr Documented by: [id number] Ioversol (Optiray 320 125ml) 94 ml IV ONCE PRN PRN Reason: Interaction Checking Stop: 01/24/19 07:53 Last Admin: 01/20/19 07:55 Dose: 94 ml Documented by: [id number] Discontinued Medications Heparin Sodium (Porcine) (Heparin Sod 100 Unit/Ml Flush) 5 ml FLUSH PRN CORNELIUS Stop: 02/19/19 11:29 Last Admin: 01/20/19 13:03 Dose: Not Given Documented by: [id number] Pantoprazole Sodium 80 mg/ (Dextrose) 120 mls @ 480 mls/hr IV TODAY@0730 [facility] Stop: 01/20/19 07:44 Last Infusion: 01/20/19 08:46 Dose: 0 mls/hr Documented by: [id number] Admin: 01/20/19 08:16 Dose: 480 mls/hr Documented by: [id number] Medical Decision Making Differential Diagnosis Differential considered: pancreatitis, hepatitis, or acute cholecystitis, AAA, UTI, pyelonephritis, kidney stones, appendicitis, diverticulitis, shingles, bowel obstruction mesenteric ischemia, intussusception,hernia, testicular torsion, ovarian torsion, ruptured ovarian cyst,ectopic , . Medical Records Attestation: I reviewed the patient's medical records. Home Medications Current Medication List: was personally reviewed by me Laboratory Data Attestation: I reviewed the patient's lab results. Result diagrams: 01/20/19 11:58 01/20/19 06:41 Lab Results 01/20/19 01/20/19 01/20/19 Range/Units 06:41 06:41 06:41 WBC 6.99 (4.8-10.8) K/uL RBC 3.04 L (4.2-5.4) M/uL Hgb 10.0 L (12.0-16.0) g/dL Hct 30.3 L (37-47) % MCV 99.7 (80-100) fL MCH 32.9 (25-34) pg MCHC 33.0 (32-36) g/dL RDW Std Deviation 66.6 H (36.4-46.3) fL RDW Coeff of Adan 18.2 H (11.5-14.5) % Plt Count 218 (130-400) K/uL MPV 9.4 (7.4-10.4) fL Immature Gran % (Auto) 0.3 % Neut % (Auto) 77.0 % Lymph % (Auto) 10.6 % [place] % (Auto) 10.7 % Eos % (Auto) 1.0 % Baso % (Auto) 0.4 % Immature Gran # (Auto) 0.02 (0.00-0.02) K/uL Neut # (Auto) 5.38 (1.4-6.5) K/uL Lymph # (Auto) 0.74 L (1.2-3.4) K/uL [place] # (Auto) 0.75 H (0.11-0.59) K/uL Eos # (Auto) 0.07 (0-0.5) K/uL Baso # (Auto) 0.03 (0-0.2) K/uL PT 11.3 (9.0-12.0) Seconds INR 1.1 (0.9-1.1) APTT 58.6 H* (21.0-31.0) Seconds PTT Ratio 2.2 Sodium 141 (136-145) mmol/L Potassium 3.5 (3.5-5.1) mmol/L Chloride 106 (98-107) mmol/L Carbon Dioxide 29 (21-32) mmol/L Anion Gap 5.0 (3-11) BUN 20 H (7-18) mg/dl Creatinine 1.02 (0.6-1.2) mg/dl Est Cr Clr Drug Dosing 46.0 ml/min Est GFR ( Amer) 56.9 Est GFR (Non-Af Amer) 49.1 BUN/Creatinine Ratio 19.5 (10-20) Glucose 142 H (70-99) mg/dl Calcium 9.0 (8.5-10.1) mg/dl Total Bilirubin 0.4 (0.2-1) mg/dl AST 16 (15-37) U/L ALT 8 L (12-78) U/L Alkaline Phosphatase 49 (45-117) U/L Troponin I < 0.015 (0-0.045) ng/ml Total Protein 5.6 L (6.4-8.2) gm/dl Albumin 2.0 L (3.4-5.0) gm/dl Globulin 3.6 (2.5-4.0) gm/dl Albumin/Globulin Ratio 0.6 L (0.9-2) Blood Type Antibody Screen Antibody Identification Antibody ID Comment Crossmatch 01/20/19 Range/Units 06:41 WBC (4.8-10.8) K/uL RBC (4.2-5.4) M/uL Hgb (12.0-16.0) g/dL Hct (37-47) % MCV (80-100) fL MCH (25-34) pg MCHC (32-36) g/dL RDW Std Deviation (36.4-46.3) fL RDW Coeff of Adan (11.5-14.5) % Plt Count (130-400) K/uL MPV (7.4-10.4) fL Immature Gran % (Auto) % Neut % (Auto) % Lymph % (Auto) % [place] % (Auto) % Eos % (Auto) % Baso % (Auto) % Immature Gran # (Auto) (0.00-0.02) K/uL Neut # (Auto) (1.4-6.5) K/uL Lymph # (Auto) (1.2-3.4) K/uL [place] # (Auto) (0.11-0.59) K/uL Eos # (Auto) (0-0.5) K/uL Baso # (Auto) (0-0.2) K/uL PT (9.0-12.0) Seconds INR (0.9-1.1) APTT (21.0-31.0) Seconds PTT Ratio Sodium (136-145) mmol/L Potassium (3.5-5.1) mmol/L Chloride (98-107) mmol/L Carbon Dioxide (21-32) mmol/L Anion Gap (3-11) BUN (7-18) mg/dl Creatinine (0.6-1.2) mg/dl Est Cr Clr Drug Dosing ml/min Est GFR ( Amer) Est GFR (Non-Af Amer) BUN/Creatinine Ratio (10-20) Glucose (70-99) mg/dl Calcium (8.5-10.1) mg/dl Total Bilirubin (0.2-1) mg/dl AST (15-37) U/L ALT (12-78) U/L Alkaline Phosphatase (45-117) U/L Troponin I (0-0.045) ng/ml Total Protein (6.4-8.2) gm/dl Albumin (3.4-5.0) gm/dl Globulin (2.5-4.0) gm/dl Albumin/Globulin Ratio (0.9-2) Blood Type O Negative Antibody Screen POSITIVE A Antibody Identification Anti-Fya Antibody ID Comment Crossmatch See Detail Imaging Data Radiologist's Impression: Radiology results as stated below per my review and the radiologist's interpretation: ABDOMEN AND PELVIS CT WITH IV CONTRAST CT DOSE: 963.57 mGy.cm HISTORY: Generalized abdominal pain. TECHNIQUE: Multiaxial CT images of the abdomen and pelvis were performed following the use of intravenous contrast. A dose lowering technique was utilized adhering to the principles of ALARA. COMPARISON STUDY: Abdomen and pelvis CT 01/11/2019. FINDINGS: No change in the small bilateral pleural effusions and posterior lower lobe consolidation suggestive of compressive atelectasis. Large hiatus hernia containing the majority of stomach and a moderate amount of fluid. This is also unchanged. Diffuse body wall edema. Nodular contour to the liver consistent with cirrhosis. No hepatic or splenic masses. Large amount of ascites, unchanged. The adrenal glands are unremarkable. No hydronephrosis. Stable bilateral renal hypodense lesions. These favor cysts. Cholelithiasis. No gallbladder wall thickening. No evidence for bowel obstruction. The bladder is unremarkable. Mass effect and narrowing within the distal sigmoid colon due to the large heterogeneous mass within the deep pelvis. This remains unchanged. The hete rogeneous mass measures approximately 8.7 cm. Moderate well-formed stool within the colon. No bowel wall thickening or obstruction. The visualized appendix appears unremarkable. Subtle nodularity along the right lower quadrant omentum. These findings are consistent with peritoneal carcinomatosis. A few additional scattered peritoneal nodules are noted with the largest posterior to the liver measuring 2.1 cm. The uterus appears surgically absent. Hypodense lesions within the pancreas favor cystic lesions. This remains unchanged. IMPRESSION: 1. Overall, no significant change compared to the prior study. 2. Multiple peritoneal deposits are again noted consistent with metastatic disease. 3. Large amount of ascites, unchanged. 4. Small bilateral pleural effusions persist. 5. No bowel wall thickening or obstruction. 6. The visualized appendix appears unremarkable. 7. Cholelithiasis. Electronically signed by: Rojas Walker M.D. 01/20/2019 8:14 AM XR chest 1V portable CLINICAL HISTORY: cough dyspnea COMPARISON STUDY: 01/19/2019 FINDINGS: Moderate stable cardiomegaly. Fixed hiatal hernia. Chronic linear parenchymal scarring left lung base. No evidence for acute infiltrate. Pre- existing chronic atelectatic change medial right base. Central catheter in superior vena cava. IMPRESSION: Chronic change. Fixed hiatal hernia. Stable mild cardiomegaly. The above report was generated using voice recognition software. It may contain grammatical, syntax or spelling errors. Electronically signed by: Eugene Castellon M.D. 01/20/2019 6:56 AM ECG Data Attestation: I personally reviewed and interpreted this ECG as follows: Indication: vomiting Rate (beats per minute): 84 Rhythm: sinus rhythm Findings: + other (poorbaseline, nomral axis) and + PAC; no PVC Blood Pressure Blood Pressure Findings: Elevated blood pressure Blood Pressure Disposition: further management by hospitalist MDM Narrative Patient is seen 88-year-old female with past medical history of ovarian cancer and C. difficile who presents the ER for vomiting. Patient and family note that it was liquid but dark and coffee-ground as. She had dried vomit on the left side of her neck which did appear to be blood. She does take heparin shots. Labs were obtained and showed no significant leukocytosis. Hemoglobin stable at close to 10. INR was unremarkable. PTT was slightly elevated in the 50s initially. BMP along with LFTs bilirubin was unremarkable. Patient was typed and screened. CT abdomen pelvis shows no acute pathology. Did not reverse the heparin due to no active bleeding while in the ER. Patient remained hemodynamically stable. She is updated bedside. Discussed with the hospitalist patient was admitted for further work-up. Of note she was also slightly hypoxic at 87% and was placed on nasal cannula which I do favor secondary to the bilateral pleural effusions. Impression & Plan Hematemesis, Hypoxia, Coagulation disorder due to circulating anticoagulants Discharge Plan Visit Data *Final* Discharge Date/Time: 01/20/19 10:24 Chief Complaint: GI Assessment Stated Complaint: GI ASSESSMENT/PAIN BETWEEN SHOULDER BLADES ED Provider: Wiliam Alvaraod Discharge Problem: Hematemesis, Hypoxia, Coagulation disorder due to circulating anticoagulants Patient Disposition: Admitted As Inpatient Discharge Instructions Interventions: ED Discharge Assessment Last Done: 01/20/19 10:24 Discharge Problem: Hematemesis Qualifiers: Nausea presence: unspecified Qualified Code(s): K92.0 - Hematemesis The scribe's documentation has been prepared under my direction and personally reviewed by me in its entirety. I confirm that the note above accurately reflects all work, treatment, procedures, and medical decision making performed by me.
--- NOTE | 2019-01-20 14:48 | History & Physical Report ---
Date of Service January 20, 2019 Assessment & Plan (1) Coffee ground emesis: - Presented with questionable coffee ground emesis versus dark brown liquid vomit, concern for upper GI bleed. - H/H has been stable and is actually increased from previous up to 10.0, will monitor q6hr. Type and screen collected in ER. - CT A/P showed large volume ascites, small bilat pleural effusions, metastatic disease c/w ovarian cancer. - GI consulted, appreciate input. Will keep NPO overnight; start gentle IV fluid hydration at 50 cc/hr (caution due to ascites and LE edema) - Continue Protonix drip. - FOBT pending collection; no further episodes of emesis since admission. (2) Ascites: - Large volume ascites noted on CT of A/P in setting of metastatic ovarian cancer could be malignant effusion also noted to have possible cirrhosis on CT imaging; paracentesis was not completed during previous admission due to ARF, hypoalbuminemia. - Consider paracentesis due to discomfort from bloating/distention -- discussed with Dr. Ma. -Will give IV albumin 25 g x 1 (3) Anemia: - Chemotherapy induced anemia -- has been stable. Monitoring H/H q6hr due to concern for upper GI bleed. Hemoccult ordered and uncollected (4) Ovarian ca: With peritoneal deposits and possible malignant ascites Has a 9 cm heterogenous pelvic mass which is causing compression on the sigmoid colon - Follows with Dr. Gurrola -- last chemotherapy in November 2018, further cycles have been held due to generalized weakness/deconditioning and recent admission for PNA. - Oncology consulted. (5) GERD (gastroesophageal reflux disease): - Protonix drip. (6) HTN (hypertension): - Not currently on anti-hypertensive. - BP has been well controlled. (7) Hiatal hernia: - Noted, followed as outpatient. If this was not hematemesis, it could be vomiting induced by large hiatal hernia in the setting of large volume ascites increasing intra-abdominal pressure (8) Prediabetes: - Hgb A1C was 7.5 in November 2017, has not been repeated since last study. - Will order A1C in the AM. - No indication for sliding scale. (9) C. difficile colitis: - Diagnosed at [facility], completed course of Flagyl. - Is currently constipated, will monitor. (10) PNA (pneumonia): - Admitted 11/2018 for right sided PNA -- completed course of Augmentin after discharge. - CXR was negative during this admission; no resp symptoms noted, however has mild hypoxia here likely secondary to pleural effusions from hypoalbuminemia. (11) Acute respiratory failure with hypoxia: Requiring 2 L nasal cannula to keep pulse ox up in the 90s Has bilateral small pleural effusions-likely secondary to hypoalbuminemia -Giving IV albumin -Needs mobilization and incentive spirometry -Continue supplemental O2 to keep pulse ox greater than 92% (12) Hypoalbuminemia: Albumin remains very low at 2.0 Urinalysis previously without proteinuria Likely secondary to multiple recent illnesses and hospitalizations, poor nutrition, possible liver dysfunction given cirrhotic appearance on imaging -Giving IV albumin in preparation for possible paracentesis tomorrow (13) Edema of lower extremity: Likely secondary to increased pelvic pressure from ascites, hyp oalbuminemia, ovarian cancer with large mass in the pelvis Venous Doppler was negative for DVT bilaterally on 01/11 She is very high risk for DVT given ongoing malignancy -Giving IV albumin as above which is only a temporary fix -Add bilateral compression stockings -Check repeat venous Doppler bilateral lower extremities (14) DVT prophylaxis: - SCDs; holding Lovenox in setting of acute bleed. Dispo: Med/surg with tele for evaluation of ?upper GI bleed. Will need PT/OT evaluation -- may require SNF placement at discharge. History of Present Illness Chief Complaint: Hematemesis Primary Care Provider: Osvaldo Sosa MD Mrs. Tse is an 88-year old white female with past medical history of ovarian cancer, anemia, hypertension who presented with complaints of abdominal fullness and vomiting. She states that last evening she had a bout of dark brown emesis x 3. Pt. went back to bed and awoke around 5am with a coughing spell followed by another bout of similarly colored emesis. She is not having what she would describe as pain in her abdomen, but a fullness which has led her to have decreased appetite. Adds that she has some increased swelling of her lower extremities. Denies any recent fevers or chills, shortness of breath, melena or hematochezia. Denies any history of gastric or duodenal ulcers, or history of inflammatory bowel, however the patient states she has never had a colonoscopy, EGD, or followed with a financial services counselor. The patient states she has not had a bowel movement in several days despite a daily regimen of miralax and senna. Recent history of note, the patient was treated for pneumonia over a week ago (Augmentin, last dose taken yesterday morning). Prior to that admission she had been diagnosed with C. diff at [facility] and treated with a course of oral m etronidazole. The patient is receiving chemotherapy for her ovarian cancer, however she states she has not had any treatment since November due to her recent illness. Allergies Allergy/AdvReac Type Severity Reaction Status Date / Time No Known Allergies Allergy Verified 01/20/19 06:38 Home Medications Home Medications Medication Instructions Recorded Confirmed Type ascorbic acid (vitamin C) [Vitamin 500 mg PO DAILY 12/14/18 01/20/19 History C] cholecalciferol (vitamin D3) 1,000 unit PO DAILY 12/14/18 01/20/19 History [Vitamin D3] pantoprazole 40 mg PO QAM 12/14/18 01/20/19 History acetaminophen [Tylenol] 325 mg PO QID PRN 12/24/18 01/20/19 History Past Med/Surg History Medical History Ovarian ca (Chronic) Anemia (Acute) Arthritis (Acute) Gout (Acute) History of hysterectomy (Acute) tumors removed from uterine area Acid reflux Ankle fracture HTN (hypertension) Hiatal hernia Low hemoglobin Ovarian cancer Prediabetes Surgical History No pertinent past surgical history Family History Other No significant family history Social History Preferred Language: Chinese Communication Ability: Effective Senior Net Web Developer Required: No Beliefs That Will Affect Care: None Current Living Situation: Alone Other Information That Helps Us Care for You: No Feels Safe at Home: Yes Safety Concerns: Feels Safe At This Time Smoking Status: Never smoker Hx Alcohol Use: No Hx Substance Use: No Review of Systems Review of Systems: All systems reviewed & are unremarkable except as noted in HPI & below Constitutional: + fatigue and + weakness; no fever, no chills and no anorexia Respiratory: no cough, no dyspnea, no dyspnea on exertion and no wheezing Cardiovascular: no chest pain, no palpitations, no lightheadedness and no edema Gastrointestinal: + nausea, + vomiting, + coffee ground emesis, + hematemesis and + constipation; no abdominal pain and no diarrhea/loose stools Genitourinary: no dysuria, no difficulty urinating and no hematuria Musculoskeletal: no back pain and no joint pain Integumentary: no non-healing lesions Neurologic: no headache(s), no abnormal speech and no confusion Physical Exam Physical Exam: General: Resting comfortably HEENT: NC/AT; PERRLA with EOMI; [place] conjunctiva, MMM. No erythema of posterior pharynx Neck: Supple and nontender Cardiac: RRR Lungs: on room air; CTA bilaterally Abdomen: Bowel normoactive X 4; Nontender to palpation Extremities: Warm. No edema present Neuro: No focal weakness Skin: No rash Results & Data Vital Signs (Past 12 Hours) Vital Signs Temp Pulse Pulse Resp BP BP BP 01/20/19 11:11 74 01/20/19 10:38 36.4 C L 77 18 136/80 01/20/19 10:00 72 16 128/81 01/20/19 09:05 76 16 148/76 H 01/20/19 08:17 01/20/19 08:16 76 16 140/73 01/20/19 07:03 78 16 133/75 01/20/19 06:38 81 19 135/76 01/20/19 06:33 01/20/19 06:08 36.7 C 75 28 H 151/75 H Pulse Ox 01/20/19 11:11 01/20/19 10:38 91 01/20/19 10:00 97 01/20/19 09:05 94 01/20/19 08:17 87 L 01/20/19 08:16 87 L 01/20/19 07:03 91 01/20/19 06:38 90 01/20/19 06:33 92 01/20/19 06:08 93 Laboratory Results 01/20/19 01/20/19 01/20/19 Range/Units 11:58 11:58 06:41 WBC (4.8-10.8) K/uL RBC (4.2-5.4) M/uL Hgb 9.5 L (12.0-16.0) g/dL Hct 28.6 L (37-47) % MCV (80-100) fL MCH (25-34) pg MCHC (32-36) g/dL RDW Std Deviation (36.4-46.3) fL RDW Coeff of Adan (11.5-14.5) % Plt Count (130-400) K/uL MPV (7.4-10.4) fL Immature Gran % (Auto) % Neut % (Auto) % Lymph % (Auto) % [place] % (Auto) % Eos % (Auto) % Baso % (Auto) % Immature Gran # (Auto) (0.00-0.02) K/uL Neut # (Auto) (1.4-6.5) K/uL Lymph # (Auto) (1.2-3.4) K/uL [place] # (Auto) (0.11-0.59) K/uL Eos # (Auto) (0-0.5) K/uL Baso # (Auto) (0-0.2) K/uL PT (9.0-12.0) Seconds INR (0.9-1.1) APTT 23.6 (21.0-31.0) Seconds PTT Ratio 0.9 Sodium (136-145) mmol/L Potassium (3.5-5.1) mmol/L Chloride (98-107) mmol/L Carbon Dioxide (21-32) mmol/L Anion Gap (3-11) BUN (7-18) mg/dl Creatinine (0.6-1.2) mg/dl Est Cr Clr Drug Dosing ml/min Est GFR ( Amer) Est GFR (Non-Af Amer) BUN/Creatinine Ratio (10-20) Glucose (70-99) mg/dl Calcium (8.5-10.1) mg/dl Total Bilirubin (0.2-1) mg/dl AST (15-37) U/L ALT (12-78) U/L Alkaline Phosphatase (45-117) U/L Troponin I (0-0.045) ng/ml Total Protein (6.4-8.2) gm/dl Albumin (3.4-5.0) gm/dl Globulin (2.5-4.0) gm/dl Albumin/Globulin Ratio (0.9-2) Blood Type O Negative Antibody Screen POSITIVE A Antibody Identification Anti-Fya Antibody ID Comment Crossmatch See Detail 01/20/19 01/20/19 01/20/19 Range/Units 06:41 06:41 06:41 WBC 6.99 (4.8-10.8) K/uL RBC 3.04 L (4.2-5.4) M/uL Hgb 10.0 L (12.0-16.0) g/dL Hct 30.3 L (37-47) % MCV 99.7 (80-100) fL MCH 32.9 (25-34) pg MCHC 33.0 (32-36) g/dL RDW Std Deviation 66.6 H (36.4-46.3) fL RDW Coeff of Adan 18.2 H (11.5-14.5) % Plt Count 218 (130-400) K/uL MPV 9.4 (7.4-10.4) fL Immature Gran % (Auto) 0.3 % Neut % (Auto) 77.0 % Lymph % (Auto) 10.6 % [place] % (Auto) 10.7 % Eos % (Auto) 1.0 % Baso % (Auto) 0.4 % Immature Gran # (Auto) 0.02 (0.00-0.02) K/uL Neut # (Auto) 5.38 (1.4-6.5) K/uL Lymph # (Auto) 0.74 L (1.2-3.4) K/uL [place] # (Auto) 0.75 H (0.11-0.59) K/uL Eos # (Auto) 0.07 (0-0.5) K/uL Baso # (Auto) 0.03 (0-0.2) K/uL PT 11.3 (9.0-12.0) Seconds INR 1.1 (0.9-1.1) APTT 58.6 H* (21.0-31.0) Seconds PTT Ratio 2.2 Sodium 141 (136-145) mmol/L Potassium 3.5 (3.5-5.1) mmol/L Chloride 106 (98-107) mmol/L Carbon Dioxide 29 (21-32) mmol/L Anion Gap 5.0 (3-11) BUN 20 H (7-18) mg/dl Creatinine 1.02 (0.6-1.2) mg/dl Est Cr Clr Drug Dosing 46.0 ml/min Est GFR ( Amer) 56.9 Est GFR (Non-Af Amer) 49.1 BUN/Creatinine Ratio 19.5 (10-20) Glucose 142 H (70-99) mg/dl Calcium 9.0 (8.5-10.1) mg/dl Total Bilirubin 0.4 (0.2-1) mg/dl AST 16 (15-37) U/L ALT 8 L (12-78) U/L Alkaline Phosphatase 49 (45-117) U/L Troponin I < 0.015 (0-0.045) ng/ml Total Protein 5.6 L (6.4-8.2) gm/dl Albumin 2.0 L (3.4-5.0) gm/dl Globulin 3.6 (2.5-4.0) gm/dl Albumin/Globulin Ratio 0.6 L (0.9-2) Blood Type Antibody Screen Antibody Identification Antibody ID Comment Crossmatch Code Status & VTE Plan VTE Prophylaxis Plan VTE Prophylaxis will be ordered: Yes Supervising Physician Co-Signing Physician Notes RADHA Supervision Note: I personally saw and examined the patient. I verified all zuniga points and agree with RADHA Lucero with the following exceptions and/or additions: Patient seen and examined, history and physical reviewed and performed by myself as well Patient reports several episodes of brown liquid vomit and also had some dark brown stools last evening prior to coming to the hospital. Currently denies any nausea or abdominal pain, no chest pain. She is feeling better. Not lightheaded. Also notes increased leg swelling and abdominal distention over the last several weeks that is causing her to feel slightly short of breath She is requiring oxygen here CT scan of the abdomen pelvis reviewed as above Laboratory values reviewed Vitals reviewed Gen: AAOx3, NAD HEENT: Anicteric sclerae, EOMI CV: RRR 2/6 systolic murmur heard at the left lower sternal border nl [id number] Pulm: Diminished breath sounds at the bases bilaterally, otherwise clear Abd: +BS soft NT with large amount of ascites, positive fluid wave Ext: 2+ pitting edema from the feet to the distal thighs bilaterally Skin: No rashes, warm/dry Neuro: Full strength throughout 80-year-old female with history of metastatic ovarian cancer, here with suspected hematemesis Not entirely clear that she vomited blood as it was described as a brown liquid. Nonetheless, will treat with Protonix drip and monitor hemoglobin It is possible that with her massive ascites and large hiatal hernia, that these 2 conditions induced her to vomit after coughing spell. Plan otherwise outlined as above PG Care Time/CCT Total # of Minutes Spent Total Time Spent with Patient: Total time spent is greater than 50% in coordination of care (as documented) at patient's floor/unit and/or counseling patient:
[2019-01-20] MEDS ORDERED: SODIUM CHLORIDE 0.9% 1000ML 1,000 ML IV SCH (15:00)
[2019-01-20 17:58] LABS: Hematocrit (blood only) 28.7 % (37-47); Hemoglobin 9.6 g/dL (12.0-16.0)
[2019-01-20 18:35] LABS: BUN Creatinine Ratio 18.2 (10-20); Calcium 8.9 mg/dl (8.5-10.1); Est GFR (African American) 56.9; Est GFR (Non-African American) 49.1; Potassium 3.4 mmol/L (3.5-5.1)
[2019-01-20] MEDS: ALBUMIN 25% 50 ML IV SCH ×2 (19:34→21:05)
--- NOTE | 2019-01-20 19:40 | Ultrasound Report ---
US venous doppler LE BI CLINICAL HISTORY: 88 years-old Female presenting with LE edema,ovarian cancer,r/o DVT. TECHNIQUE: Real-time grayscale and color and spectral Doppler ultrasound imaging of the veins of the bilateral lower extremities was performed. Compression and augmentation were also utilized. COMPARISON: 01/11/2019. FINDINGS: RIGHT: Common femoral vein: Patent. Greater saphenous vein (superficial): Patent. Deep femoral vein: Patent. Femoral vein: Patent. Popliteal vein: Patent. Calf veins: Patent. LEFT: Common femoral vein: Patent. Greater saphenous vein (superficial): Patent. Deep femoral vein: Patent. Femoral vein: Patent. Popliteal vein: Patent. Calf veins: Patent. Other: Subcutaneous edema throughout the lower extremities. IMPRESSION: 1. No evidence of deep venous thrombosis. 2. Nonspecific bilateral lower extremity edema. Electronically signed by: Dhruv Mccall M.D. 01/20/2019 7:38 PM
[2019-01-21] MEDS: PANTOprazole 40 MG in DEXTROSE 5% 100 ML IV SCH ×3 (00:27→12:33)
[2019-01-21 00:29] LABS: Hematocrit (blood only) 26.3 % (37-47); Hemoglobin 8.6 g/dL (12.0-16.0)
[2019-01-21 06:18] LABS: Hematocrit (blood only) 26.7 % (37-47); Hemoglobin 8.7 g/dL (12.0-16.0); Mean Corpuscular Hemoglobin 32.7 pg (25-34); Mean Corpuscular Hgb Conc 32.6 g/dL (32-36); Mean Corpuscular Volume 100.4 fL (80-100); Mean Platelet Volume 9.6 fL (7.4-10.4); Platelet Count 195 K/uL (130-400); RDW Coefficient of Variation 18.2 % (11.5-14.5); RDW Standard Deviation 68.1 fL (36.4-46.3); Red Blood Count 2.66 M/uL (4.2-5.4); White Blood Count 4.68 K/uL (4.8-10.8)
[2019-01-21 06:48] LABS: BUN Creatinine Ratio 18.3 (10-20); Calcium 8.2 mg/dl (8.5-10.1); Creatinine Clr Calc Pharmacy 50.5 ml/min; Est GFR (African American) 63.6; Est GFR (Non-African American) 54.9; Magnesium 1.7 mg/dl (1.8-2.4); Potassium 3.2 mmol/L (3.5-5.1)
[2019-01-21 06:51] LABS: Albumin Globulin Ratio 0.7 (0.9-2); Bilirubin,Total 0.5 mg/dl (0.2-1); Phosphorus 2.5 mg/dl (2.5-4.9)
[2019-01-21] MEDS: MAGNESIUM SULFATE / D5W 1 GM/100 ML BAG IV SCH ×2 (08:55→08:56)
--- NOTE | 2019-01-21 09:25 | Consultation Report ---
DATE OF CONSULTATION: 01/21/2019 REASON FOR CONSULTATION: Progressive ascites in an 88-year-old female patient with metastatic ovarian cancer. HISTORY OF PRESENT ILLNESS: The patient is a very pleasant 88-year-old female patient of Dr. Reagan Reyez, currently receiving treatment for metastatic ovarian cancer. She was admitted on January 20 after an episode of hematemesis x3. 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 The patient is also complaining of increased abdominal fullness, anorexia and early satiety. Again, she had been receiving salvage chemotherapy under the direction of Dr. Gurrola, but has not had any chemotherapy for well over a month because of different clinical issues. She was hospitalized a little over a week ago with pneumonia and was discharged on p.o. Augmentin. Prior to admission, she had been diagnosed with Clostridium difficile colitis and effectively treated with oral metronidazole. Dr. Nia Hua informally discussed her case and I believe it is reasonable to proceed with paracentesis to offer her some relief. Her performance status is clearly in decline and she is not medically stable at this point to resume chemotherapy if ever. CT scan of the abdomen and pelvis was performed revealing no overt change per se; however, there is a large amount of ascites, which is also unchanged. Multiple peritoneal deposits are noted again consistent with metastatic disease. The patient is awake, alert and appropriate and was very helpful in providing information for today's consultation. We will convey with Dr. Gurrola of patient's status regarding her current therapy response to treatment and code status. PAST MEDICAL HISTORY: Significant for ovarian cancer as described above, osteoarthritis, acid reflux, hiatal hernia, prediabetes, gout. PAST SURGICAL HISTORY: Status post hysterectomy. MEDICATIONS: Prior to admission include vitamin C, cholecalciferol, Protonix 40 mg p.o. daily, Tylenol 325 mg q. 6 hours p.r.n. ALLERGIES: No known drug allergies. SOCIAL HISTORY: The patient is retired. She lives alone, presently has relatives visiting to help because of her clinical decline. FAMILY HISTORY: Noncontributory. REVIEW OF SYSTEMS: CONSTITUTIONAL: As per HPI, most notably for anorexia. Overall decline in performance status, increased abdominal fullness, early satiety and hematemesis. Negative for fevers or chills. SKIN: No rashes or lesions. No history of dermatoses. HEENT: Negative for headaches, lightheadedness or dizziness. No dysphagia or sore throat. LYMPH: No history of lymphoproliferative disease. CARDIAC: Negative for coronary artery disease. No current angina or palpitations. PULMONARY: Negative for COPD. She is not acutely short of breath, dyspneic or orthopneic. No hemoptysis reported. GASTROINTESTINAL: Again, positive for early satiety. She was previously diagnosed with Clostridium difficile colitis, effectively treated with metronidazole. Positive for nausea and vomiting. Positive for progressive ascites. GENITOURINARY: No hematuria, dysuria, urinary incontinence. MUSCULOSKELETAL: Positive for osteoarthritis by history. No focal muscle weakness. ENDOCRINE: Positive for prediabetes, negative for thyroid disease. NEUROLOGIC: Negative for seizure, stroke or migraine headache. HEMATOLOGIC: Positive for anemia. PHYSICAL EXAMINATION: GENERAL: Very pleasant 88-year-old female, in no acute distress. VITAL SIGNS: Temperature 36.8, pulse 72, respiratory rate 20, blood pressure 124/73. SKIN: Warm, dry, noncyanotic without petechia, rash or ecchymosis. Turgor is fair. HEENT: Head atraumatic, normocephalic. Eyes: PERRLA, EOMI. Sclerae nonicteric. No conjunctival injection. Nares are patent without rhinorrhea or discharge. Throat is clear. Tongue is midline. Mucous membranes are moist. NECK: Supple without JVD or thyromegaly. LYMPHATICS: No cervical or supraclavicular palpable nodes. HEART: Regular rate and rhythm. No clicks, rubs, murmurs or gallops. LUNGS: Clear to auscultation bilaterally. ABDOMEN: Obese. I do not appreciate abdominal firmness per se, but there is shifting dullness and a positive fluid wave. Bowel sounds are hypoactive. EXTREMITIES: Musculoskeletal strength and pulses are equal. Trace peripheral edema bilaterally. NEUROLOGICAL: She is awake, alert and oriented. Cranial nerves are grossly intact. LABORATORY DATA: WBC count 4680, hemoglobin 8.7, platelet count 195,000. Sodium 141, potassium 3.2, chloride 106, carbon dioxide 30, BUN 17, creatinine 0.93, magnesium 1.7, albumin 2.0. IMPRESSION: 1. Abdominal ascites. 2. Metastatic ovarian cancer. 3. Declining performance status. 4. Hypoalbuminemia. 5. Normocytic normochromic anemia. 6. Hypokalemia. 7. Hematemesis. 8. History of Clostridium difficile colitis. 9. Acute respiratory failure with hypoxia. PLAN: In summary, the patient is a very pleasant 88-year-old female patient heavily pretreated with metastatic ovarian cancer under Dr. Gurrola's care. She has not had salvage chemotherapy in well over a month because of multiple hospitalizations. From a radiographic perspective, there does not appear to be disease progression per se; however, the ascites, despite volume not changing, is definitely a symptomatic bother for the patient causing early satiety and thus should arrange for a palliative paracentesis moving forward. Her overall performance status is in decline, but as I discussed with the patient, she needs to sit down directly with Dr. Gurrola to determine the utility of continuing treatment at this juncture. Her nutritional status is marginal. Perhaps IV albumin daily over the next couple of days may help with ascites and lower extremity edema. As for the hematemesis, I agree with Protonix drip. I suspect she probably has gastritis perhaps the beginnings of an ulcer. Gastroenterology is on consult. I have really nothing further to offer and again we will discuss her ongoing care with Dr. Gurrola to gain some insight on where we are going lead massage therapist with the patient's care. Thank you very much for allowing us to participate in her care. If you have any questions or concerns, feel free to contact me as I will be on through the holiday weekend. NICHOLAS
--- NOTE | 2019-01-21 11:21 | Gastroenterology Progress Note ---
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 She does have a history of GERD, large HH on imaging, ?cirrhosis on CT. DDX discussed to include heena erosin, brannon patel tear, esophagitis, gastritis, PUD, less likely variceal hemorrhage She is awake, alert and oriented w/ stable BP, pulse w/o drop in HGB or bump in BUN and noted semi-formed brown stools. She appears hesitant in regards to pursuit of endoscopy but notes if emergently indicated she would be agreeable to this intervention She has remained clinically stable overnight w/ good BP. There has been downtrending of HGB to her baseline without BUN elevation. There has not been any evidence of ongoing GI bleed without any further episdoes of coffee ground emesis, hematemesis, melena or BRBPR. - No GI contraindication to diet - No plan for inpatient EGD - Can finish IV PPI today - PO PPI BID x 1 months - Then PO PPI daily - OP EGD if agreeable - Trend H&H - Transfuse PRN per primary service - Monitor and document all GI output - Agree w/ plan for sample of peritoneal fluid, concern for malignant ascites Thank you for allowing us to participate in the care of this patient. Please call with any acute changes, questions or concerns. Please see addendum below with additional recommendation from my supervising physician. Supervising Physician Co-Signing Physician Notes I saw and evaluated the patient. We are consulted yesterday for evaluation of coffee-ground emesis. The patient was initially seen by Dr. Borges felt that no endoscopic intervention was needed at the present time. The patient has had no recurrence of hematemesis since admission and notes that her nausea is much improved. The patient did undergo a therapeutic paracentesis as she has advanced ovarian cancer. Recommendations Advance diet as tolerated Continue Protonix 40 mg 1 times daily GI to sign off, these call with any questions or concerns Subjective Pt was seen and evaluated, chart reviewed No further episodes of vomiting No coffee ground emesis since admission No black/bloody stools No abd pain No lightheadedness, dizziness, CP, SOB HGB drifted down to baseline, no BUN elevation Review of Systems Constitutional: no fever, no chills and no fatigue Respiratory: no cough and no dyspnea Cardiovascular: no chest pain, no radiating jaw, neck or arm pain and no dyspnea on exertion Gastrointestinal: no abdominal pain, no belching, no coffee ground emesis, no hematemesis, no blood in stools and no melena Physical Exam Constitutional: + ill appearing (chronically ill) Neck: trachea midline Respiratory: Auscultation: + diminished lung sounds (bilaterally diminished at bases) Cardiovascular: Rate/Rhythm: regular rate and regular rhythm Gastrointestinal (Abdomen): Inspection/Auscultation: + abdomen distended Percussion/Palpation: abdomen soft; abdomen nontender, no guarding and abdomen not rigid Results & Data Vital Signs (Past 12 Hours) Vital Signs Temp Pulse Pulse Resp BP Pulse Ox 01/21/19 06:33 36.8 C 72 20 124/73 95 01/21/19 04:00 37.0 C 71 19 118/71 95 01/21/19 00:00 67 Laboratory Results 01/21/19 01/21/19 01/21/19 Range/Units 05:50 05:50 00:15 WBC 4.68 L (4.8-10.8) K/uL RBC 2.66 L (4.2-5.4) M/uL Hgb 8.7 L 8.6 L (12.0-16.0) g/dL Hct 26.7 L 26.3 L (37-47) % MCV 100.4 H (80-100) fL MCH 32.7 (25-34) pg MCHC 32.6 (32-36) g/dL RDW Std Deviation 68.1 H (36.4-46.3) fL RDW Coeff of Adan 18.2 H (11.5-14.5) % Plt Count 195 (130-400) K/uL MPV 9.6 (7.4-10.4) fL APTT (21.0-31.0) Seconds PTT Ratio Sodium 141 (136-145) mmol/L Potassium 3.2 L (3.5-5.1) mmol/L Chloride 106 (98-107) mmol/L Carbon Dioxide 30 (21-32) mmol/L Anion Gap 5.0 (3-11) BUN 17 (7-18) mg/dl Creatinine 0.93 (0.6-1.2) mg/dl Est Cr Clr Drug Dosing 50.5 ml/min Est GFR ( Amer) 63.6 Est GFR (Non-Af Amer) 54.9 BUN/Creatinine Ratio 18.3 (10-20) Glucose 108 H (70-99) mg/dl Calcium 8.2 L (8.5-10.1) mg/dl Phosphorus 2.5 (2.5-4.9) mg/dl Magnesium 1.7 L (1.8-2.4) mg/dl Total Bilirubin 0.5 (0.2-1) mg/dl AST 12 L (15-37) U/L ALT 8 L (12-78) U/L Alkaline Phosphatase 40 L (45-117) U/L Total Protein 5.0 L (6.4-8.2) gm/dl Albumin 2.0 L (3.4-5.0) gm/dl Globulin 3.0 (2.5-4.0) gm/dl Albumin/Globulin Ratio 0.7 L (0.9-2) Blood Type Antibody Screen Antibody Identification Antibody ID Comment Crossmatch 01/20/19 01/20/19 01/20/19 Range/Units 17:50 17:50 11:58 WBC (4.8-10.8) K/uL RBC (4.2-5.4) M/uL Hgb 9.6 L (12.0-16.0) g/dL Hct 28.7 L (37-47) % MCV (80-100) fL MCH (25-34) pg MCHC (32-36) g/dL RDW Std Deviation (36.4-46.3) fL RDW Coeff of Adan (11.5-14.5) % Plt Count (130-400) K/uL MPV (7.4-10.4) fL APTT 23.6 (21.0-31.0) Seconds PTT Ratio 0.9 Sodium 141 (136-145) mmol/L Potassium 3.4 L (3.5-5.1) mmol/L Chloride 106 (98-107) mmol/L Carbon Dioxide 31 (21-32) mmol/L Anion Gap 5.0 (3-11) BUN 19 H (7-18) mg/dl Creatinine 1.02 (0.6-1.2) mg/dl Est Cr Clr Drug Dosing 46.0 ml/min Est GFR ( Amer) 56.9 Est GFR (Non-Af Amer) 49.1 BUN/Creatinine Ratio 18.2 (10-20) Glucose 121 H (70-99) mg/dl Calcium 8.9 (8.5-10.1) mg/dl Phosphorus (2.5-4.9) mg/dl Magnesium (1.8-2.4) mg/dl Total Bilirubin (0.2-1) mg/dl AST (15-37) U/L ALT (12-78) U/L Alkaline Phosphatase (45-117) U/L Total Protein (6.4-8.2) gm/dl Albumin (3.4-5.0) gm/dl Globulin (2.5-4.0) gm/dl Albumin/Globulin Ratio (0.9-2) Blood Type Antibody Screen Antibody Identification Antibody ID Comment Crossmatch 01/20/19 01/20/19 Range/Units 11:58 06:41 WBC (4.8-10.8) K/uL RBC (4.2-5.4) M/uL Hgb 9.5 L (12.0-16.0) g/dL Hct 28.6 L (37-47) % MCV (80-100) fL MCH (25-34) pg MCHC (32-36) g/dL RDW Std Deviation (36.4-46.3) fL RDW Coeff of Adan (11.5-14.5) % Plt Count (130-400) K/uL MPV (7.4-10.4) fL APTT (21.0-31.0) Seconds PTT Ratio Sodium (136-145) mmol/L Potassium (3.5-5.1) mmol/L Chloride (98-107) mmol/L Carbon Dioxide (21-32) mmol/L Anion Gap (3-11) BUN (7-18) mg/dl Creatinine (0.6-1.2) mg/dl Est Cr Clr Drug Dosing ml/min Est GFR ( Amer) Est GFR (Non-Af Amer) BUN/Creatinine Ratio (10-20) Glucose (70-99) mg/dl Calcium (8.5-10.1) mg/dl Phosphorus (2.5-4.9) mg/dl Magnesium (1.8-2.4) mg/dl Total Bilirubin (0.2-1) mg/dl AST (15-37) U/L ALT (12-78) U/L Alkaline Phosphatase (45-117) U/L Total Protein (6.4-8.2) gm/dl Albumin (3.4-5.0) gm/dl Globulin (2.5-4.0) gm/dl Albumin/Globulin Ratio (0.9-2) Blood Type O Negative Antibody Screen POSITIVE A Antibody Identification Anti-Fya Antibody ID Comment Crossmatch See Detail
[2019-01-21] MEDS ORDERED: POTASSIUM CHLORIDE 20 MEQ TABCR PO STA (12:06)
--- NOTE | 2019-01-21 12:09 | Hospitalist Progress Note ---
Date of Service January 21, 2019 Assessment & Plan (1) Coffee ground emesis: - Presented with questionable coffee ground emesis versus dark brown liquid vomit; now resolved, no further episodes since admission. - H/H has been stable, no significant decrease over last 12 hours. - CT A/P with no acute source of bleeding. - GI consulted, appreciate input. No indication for inpatient EGD, can consider outpatient EGD. - Advance to CLD as tolerated. - Convert to PPI PO BID x 1 month then daily. (2) Ascites: - Large volume ascites noted on CT of A/P in setting of metastatic ovarian cancer - could be malignant effusion also noted to have possible cirrhosis on CT imaging. - S/p US guided paracentesis today (both diagnostic and therapeutic) with removal of 6.5L fluid. - Received IV Albumin 25 gm on 01/20; will give additional albumin this afternoon post paracentesis. (3) Anemia: - Chemotherapy induced anemia -- has been stable since admission. - Monitor CBC qAM. (4) Ovarian ca: - With peritoneal deposits and possible malignant ascites; Has a 9 cm heterogenous pelvic mass which is causing compression on the sigmoid colon. - Follows with Dr. Gurrola -- last chemotherapy in November 2018, further cycles have been held due to generalized weakness/deconditioning and recent admission for PNA. - Oncology consulted, unclear if pt. will be candidate for further chemo in the future. - Consider palliative care consult early next week following discussion regarding goals of care with Dr. Gurrola. (5) GERD (gastroesophageal reflux disease): - Protonix PO BID x 1 month then daily. (6) HTN (hypertension): - Not currently on anti-hypertensive. (7) Hiatal hernia: - Noted, followed as outpatient. - If this was not hematemesis, it could be vomiting induced by large hiatal hernia in the setting of large volume ascites increasing intra-abdominal pressure. (8) Prediabetes: - Hgb A1C was 7.5 in November 2017, has not been repeated since last study. - No indication for sliding scale. (9) C. difficile colitis: - Diagnosed at [facility], completed course of Flagyl. - Is currently constipated - start bowel regimen. (10) PNA (pneumonia): - Admitted 11/2018 for right sided PNA -- completed course of Augmentin after discharge. - CXR was negative during this admission; has mild hypoxia here likely secondary to pleural effusions from hypoalbuminemia. (11) Acute respiratory failure with hypoxia: - Currently requiring 2L via NC in setting of small bilat pleural effusions (in setting of hypoalbuminemia); previously on room air at home. - Received IV albumin on 01/20; will give further doses this afternoon. - Encourage mobilization -- PT ordered; IS q1hrWA. (12) Hypoalbuminemia: - Albumin is low at 2.0 in setting of malnutrition, ovarian cancer with recent hospitalizations, possible liver dysfunction with ?cirrhosis. - U/a negative for proteinuria. - Will receive IV albumin this afternoon. (13) Edema of lower extremity: - Likely secondary to increased pelvic pressure from ascites, hypoalbuminemia, ovarian cancer with large mass in the pelvis - Venous Doppler was negative for DVT bilaterally on 01/11; repeat doppler studies were also negative. - High risk for DVT -- added bilat compression stockings. Holding pharmacologic ppx due to concern for recent bleed. (14) DVT prophylaxis: - SCDs; holding Lovenox in setting of acute bleed. Additional: Mag sulfate 2 gm IV for Mag level 1.7 and K 40 mEq Po for K level 3.2. Dispo: Med/surg; PT/OT ordered -- her family was planning on admission to [facility] prior to admission as pt. was not able to care for herself at home. Will likely require rehab early next week with possible palliative consult (?hospice) following goals of care discussion with Dr. Gurrola. Supervising Physician Co-Signing Physician Notes PA Supervision Note: I did not personally see or examine the patient today, but I verified all zuniga points of RADHA Lucero's assessment and plan with the following exceptions/additions: None Subjective S/p paracentesis with removal of 6.5L peritoneal fluid. Pt. is tolerating CLD, increased appetite after procedure. Has not had a BM during admission but is passing gas. No further episodes of emesis. Pt. is very weak, struggles with minimal movements such as going to bedside chair. Review of Systems Review of Systems: All systems reviewed & are unremarkable except as noted in HPI & below Constitutional: + fatigue and + weakness; no fever and no chills Respiratory: no cough, no dyspnea, no dyspnea on exertion and no wheezing Cardiovascular: no chest pain, no palpitations and no edema Gastrointestinal: + abdominal pain and + constipation; no bloating, no nausea, no vomiting and no diarrhea/loose stools Genitourinary: no difficulty urinating Musculoskeletal: no back pain and no joint pain Integumentary: no non-healing lesions Physical Exam Physical Exam: General: Resting comfortably HEENT: NC/AT; PERRLA with EOMI; Bridger conjunctiva, MMM. No erythema of posterior pharynx Neck: Supple and nontender Cardiac: RRR Lungs: on room air; CTA throughout Abdomen: No distention noted; Bowel normoactive X 4; Soft and nontender to palpation Extremities: Warm. +1 bilat LE edema noted. Neuro: No focal weakness Skin: No rash Results & Data Vital Signs (Past 12 Hours) Vital Signs Temp Pulse Pulse Resp BP Pulse Ox 01/21/19 06:33 36.8 C 72 20 124/73 95 01/21/19 04:00 37.0 C 71 19 118/71 95 01/21/19 00:00 67 Laboratory Results 01/21/19 01/21/19 01/21/19 Range/Units 05:50 05:50 00:15 WBC 4.68 L (4.8-10.8) K/uL RBC 2.66 L (4.2-5.4) M/uL Hgb 8.7 L 8.6 L (12.0-16.0) g/dL Hct 26.7 L 26.3 L (37-47) % MCV 100.4 H (80-100) fL MCH 32.7 (25-34) pg MCHC 32.6 (32-36) g/dL RDW Std Deviation 68.1 H (36.4-46.3) fL RDW Coeff of Adan 18.2 H (11.5-14.5) % Plt Count 195 (130-400) K/uL MPV 9.6 (7.4-10.4) fL APTT (21.0-31.0) Seconds PTT Ratio Sodium 141 (136-145) mmol/L Potassium 3.2 L (3.5-5.1) mmol/L Chloride 106 (98-107) mmol/L Carbon Dioxide 30 (21-32) mmol/L Anion Gap 5.0 (3-11) BUN 17 (7-18) mg/dl Creatinine 0.93 (0.6-1.2) mg/dl Est Cr Clr Drug Dosing 50.5 ml/min Est GFR ( Amer) 63.6 Est GFR (Non-Af Amer) 54.9 BUN/Creatinine Ratio 18.3 (10-20) Glucose 108 H (70-99) mg/dl Calcium 8.2 L (8.5-10.1) mg/dl Phosphorus 2.5 (2.5-4.9) mg/dl Magnesium 1.7 L (1.8-2.4) mg/dl Total Bilirubin 0.5 (0.2-1) mg/dl AST 12 L (15-37) U/L ALT 8 L (12-78) U/L Alkaline Phosphatase 40 L (45-117) U/L Total Protein 5.0 L (6.4-8.2) gm/dl Albumin 2.0 L (3.4-5.0) gm/dl Globulin 3.0 (2.5-4.0) gm/dl Albumin/Globulin Ratio 0.7 L (0.9-2) Antibody ID Comment 01/20/19 01/20/19 01/20/19 Range/Units 17:50 17:50 11:58 WBC (4.8-10.8) K/uL RBC (4.2-5.4) M/uL Hgb 9.6 L (12.0-16.0) g/dL Hct 28.7 L (37-47) % MCV (80-100) fL MCH (25-34) pg MCHC (32-36) g/dL RDW Std Deviation (36.4-46.3) fL RDW Coeff of Adan (11.5-14.5) % Plt Count (130-400) K/uL MPV (7.4-10.4) fL APTT 23.6 (21.0-31.0) Seconds PTT Ratio 0.9 Sodium 141 (136-145) mmol/L Potassium 3.4 L (3.5-5.1) mmol/L Chloride 106 (98-107) mmol/L Carbon Dioxide 31 (21-32) mmol/L Anion Gap 5.0 (3-11) BUN 19 H (7-18) mg/dl Creatinine 1.02 (0.6-1.2) mg/dl Est Cr Clr Drug Dosing 46.0 ml/min Est GFR ( Amer) 56.9 Est GFR (Non-Af Amer) 49.1 BUN/Creatinine Ratio 18.2 (10-20) Glucose 121 H (70-99) mg/dl Calcium 8.9 (8.5-10.1) mg/dl Phosphorus (2.5-4.9) mg/dl Magnesium (1.8-2.4) mg/dl Total Bilirubin (0.2-1) mg/dl AST (15-37) U/L ALT (12-78) U/L Alkaline Phosphatase (45-117) U/L Total Protein (6.4-8.2) gm/dl Albumin (3.4-5.0) gm/dl Globulin (2.5-4.0) gm/dl Albumin/Globulin Ratio (0.9-2) Antibody ID Comment 01/20/19 01/20/19 Range/Units 11:58 06:41 WBC (4.8-10.8) K/uL RBC (4.2-5.4) M/uL Hgb 9.5 L (12.0-16.0) g/dL Hct 28.6 L (37-47) % MCV (80-100) fL MCH (25-34) pg MCHC (32-36) g/dL RDW Std Deviation (36.4-46.3) fL RDW Coeff of Adan (11.5-14.5) % Plt Count (130-400) K/uL MPV (7.4-10.4) fL APTT (21.0-31.0) Seconds PTT Ratio Sodium (136-145) mmol/L Potassium (3.5-5.1) mmol/L Chloride (98-107) mmol/L Carbon Dioxide (21-32) mmol/L Anion Gap (3-11) BUN (7-18) mg/dl Creatinine (0.6-1.2) mg/dl Est Cr Clr Drug Dosing ml/min Est GFR ( Amer) Est GFR (Non-Af Amer) BUN/Creatinine Ratio (10-20) Glucose (70-99) mg/dl Calcium (8.5-10.1) mg/dl Phosphorus (2.5-4.9) mg/dl Magnesium (1.8-2.4) mg/dl Total Bilirubin (0.2-1) mg/dl AST (15-37) U/L ALT (12-78) U/L Alkaline Phosphatase (45-117) U/L Total Protein (6.4-8.2) gm/dl Albumin (3.4-5.0) gm/dl Globulin (2.5-4.0) gm/dl Albumin/Globulin Ratio (0.9-2) Antibody ID Comment PG Care Time/CCT Total # of Minutes Spent Total Time Spent with Patient: Total time spent is greater than 50% in coordination of care (as documented) at patient's floor/unit and/or counseling patient:
--- NOTE | 2019-01-21 12:25 | Ultrasound Report ---
ULTRASOUND GUIDED DIAGNOSTIC AND THERAPEUTIC PARACENTESIS CLINICAL HISTORY: Ascites. COMPARISON STUDY: CT of the abdomen and pelvis January 20, 2019. PROCEDURE: The risks, benefits, and alternatives to the procedure were discussed with the patient inc luding the risk of bleeding, infection and injury to adjacent structures. The patient agreed to the procedure and informed written consent was obtained. Following real-time ultrasound localization, the skin of the left lower quadrant was prepped and draped. Following local anesthesia with Xylocaine, t he sheath paracentesis needle was inserted and approximately 6.5 liters of straw-colored fluid was re moved by vacuum suction. The patient tolerated the procedure well and no immediate complications were evident. IMPRESSION: Ultrasound-guided paracentesis with removal of 6.5 liters of ascites. 1 L of ascites was sent to the laboratory for analysis. Electronically signed by: Farhan Hernandez M.D. 01/21/2019 12:24 PM
[2019-01-21] MEDS: DOCUSATE SODIUM/SENNA 50/8.6MG TAB PO SCH ×2 (12:33→21:20)
[2019-01-21] MEDS: HEPARIN 100 UNIT/ML 5ML FLUSH FLUSH PRN (12:35)
[2019-01-21 12:49] LABS: Albumin Peritoneal Fluid 1.5 g/dl
[2019-01-21 13:20] LABS: Appearance Peritoneal Fluid CLEAR; Color Peritoneal Fluid PALE YELLOW; Mononuclear WBC Peritoneal 63.4 %; Polynuclear WBC Peritoneal 36.6 %; RBC Peritoneal Fluid (A) < 3000 /uL; WBC Peritoneal Fluid (A) 344 /ul (0-300)
[2019-01-21] MEDS ORDERED: ACETAMINOPHEN 325 MG TAB PO PRN (13:24)
[2019-01-21] MEDS ORDERED: ALBUMIN 5% 250 ML IV SCH (13:30)
[2019-01-21] MEDS: ALBUMIN 25% 50 ML IV SCH ×2 (14:10→14:56)
[2019-01-21] MEDS: POLYETHYLENE (MIRALAX) 17 GM PACK PO SCH (16:58)
[2019-01-21] MEDS: PANTOprazole 40 MG TAB PO SCH (21:20)
[2019-01-22] MEDS: HEPARIN 100 UNIT/ML 5ML FLUSH FLUSH PRN ×2 (05:35→10:17)
[2019-01-22 06:06] LABS: Hematocrit (blood only) 27.5 % (37-47); Mean Corpuscular Hemoglobin 33.1 pg (25-34); Mean Corpuscular Hgb Conc 32.7 g/dL (32-36); Mean Corpuscular Volume 101.1 fL (80-100); Mean Platelet Volume 8.7 fL (7.4-10.4); Platelet Count 178 K/uL (130-400); RDW Coefficient of Variation 17.7 % (11.5-14.5); RDW Standard Deviation 65.6 fL (36.4-46.3); Red Blood Count 2.72 M/uL (4.2-5.4); White Blood Count 5.27 K/uL (4.8-10.8)
[2019-01-22 06:40] LABS: BUN Creatinine Ratio 16.7 (10-20); Calcium 8.4 mg/dl (8.5-10.1); Creatinine Clr Calc Pharmacy 47.3 ml/min; Est GFR (African American) 69.9; Est GFR (Non-African American) 60.3; Magnesium 1.8 mg/dl (1.8-2.4); Potassium 3.3 mmol/L (3.5-5.1)
[2019-01-22 06:51] LABS: Albumin Globulin Ratio 0.8 (0.9-2); Bilirubin,Total 0.5 mg/dl (0.2-1); Globulin 2.5 gm/dl (2.5-4.0); Total Protein 4.5 gm/dl (6.4-8.2)
[2019-01-22] MEDS ORDERED: POTASSIUM CHLORIDE 20 MEQ TABCR PO STA (07:52)
[2019-01-22] MEDS: POLYETHYLENE (MIRALAX) 17 GM PACK PO SCH (08:43)
[2019-01-22] MEDS: DOCUSATE SODIUM/SENNA 50/8.6MG TAB PO SCH ×2 (08:43→20:19)
[2019-01-22] MEDS: PANTOprazole 40 MG TAB PO SCH ×2 (08:43→20:26)
[2019-01-22] MEDS ORDERED: FUROSEMIDE 40 MG in SYRINGE 0 ML IV ONE (09:45)
--- NOTE | 2019-01-22 11:45 | Hospitalist Progress Note ---
Date of Service January 22, 2019 Assessment & Plan (1) Coffee ground emesis: - Presented with questionable coffee ground emesis versus dark brown liquid vomit; now resolved, was not likely related to upper GI bleed. - H/H has been stable, monitor daily. - CT A/P with no acute source of bleeding. - GI consulted, appreciate input. No indication for inpatient EGD, can consider outpatient EGD. - Advance diet as tolerated. - PPI PO BID x 1 month then daily. (2) Ascites: - Large volume ascites noted on CT of A/P in setting of metastatic ovarian cancer - could be malignant effusion also noted to have possible cirrhosis on CT imaging. - S/p US guided paracentesis on 01/21 (both diagnostic and therapeutic) with removal of 6.5L fluid. Cultures and cytology are pending. - Received IV Albumin on 01/20 and 01/21, hold further doses. 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 - Monitor CBC qAM. (4) Ovarian ca: - With peritoneal deposits and possible malignant ascites; Has a 9 cm heterogenous pelvic mass which is causing compression on the sigmoid colon. - Follows with Dr. Gurrola -- last chemotherapy in November 2018, further cycles have been held due to generalized weakness/deconditioning and recent PNA. - Oncology consulted, unclear if pt. will be candidate for further chemo in the future. - Consider palliative care consult early next week following discussion regarding goals of care with Dr. Gurrola. (5) GERD (gastroesophageal reflux disease): - Protonix PO BID x 1 month then daily. (6) HTN (hypertension): - Not currently on anti-hypertensive. (7) Hiatal hernia: - Noted, followed as outpatient. - If this was not hematemesis, it could be vomiting induced by large hiatal hernia in the setting of large volume ascites increasing intra-abdominal pressure. (8) Prediabetes: - Hgb A1C was 7.5 in November 2017, has not been repeated since last study. - No indication for sliding scale. (9) C. difficile colitis: - Diagnosed at [facility], completed course of Flagyl. - C. diff toxin was positive -- likely from previous infection. Stool is formed, no indication for treatment at this time. (10) PNA (pneumonia): - Admitted 11/2018 for right sided PNA -- completed course of Augmentin after discharge. - CXR was negative during this admission; mild hypoxia here was likely secondary to pleural effusions from hypoalbuminemia. (11) Acute respiratory failure with hypoxia: - Now weaned to room air; hypoxia was likely related to small bilat pleural effusions (in setting of hypoalbuminemia). - Received IV albumin on 01/20 & 01/21. - Encourage mobilization. - Diuresis with Lasix IV x 1 dose. (12) Hypoalbuminemia: - Albumin is low in setting of malnutrition, ovarian cancer with recent hospitalizations, possible liver dysfunction with ?cirrhosis. - U/a negative for proteinuria. - Received IV Albumin on 01/20 and 01/21. (13) Edema of lower extremity: - Likely secondary to increased pelvic pressure from ascites, hypoalbuminemia, ovarian cancer with large mass in the pelvis - Venous Doppler was negative for DVT bilaterally on 01/11; repeat doppler studies were also negative. - High risk for DVT -- bilat compression stockings. Holding pharmacologic ppx due to concern for recent bleed. - Will give Lasix IV x 1 dose today and evaluate for improvement. (14) DVT prophylaxis: - SCDs; holding Lovenox in setting of acute bleed. Additional: K level 3.3 -- ordered K 40 mEq PO. Dispo: Med/surg; her family was planning on admission to [facility] prior to admission as pt. was not able to care for herself at home. Will likely require rehab early next week with possible palliative consult (?hospice) following goals of care discussion with Dr. Gurrola. Supervising Physician Co-Signing Physician Notes RADHA Supervision Note: I did not personally see or examine the patient today, but I verified all zuniga points of RADHA Lucero's assessment and plan with the following exceptions/additions: None Subjective Pt. reports abdomen is improved, less bloated and uncomfortable following paracentesis. She had a good BM this morning, denies loss of appetite, nausea or vomiting. Is now weaned down to room air, denies SOB. Does have increased LE edema -- will give dose of IV lasix and evaluate for improvement. Wght has been fluctuating but appears to be below her baseline. Review of Systems Review of Systems: All systems reviewed & are unremarkable except as noted in HPI & below Constitutional: + fatigue and + weakness; no fever, no chills and no anorexia Respiratory: no cough, no dyspnea, no dyspnea on exertion and no wheezing Cardiovascular: + edema; no chest pain, no palpitations and no lightheadedness Gastrointestinal: no abdominal pain, no bloating, no nausea and no constipation Genitourinary: no difficulty urinating Musculoskeletal: no back pain and no joint pain Integumentary: no non-healing lesions Physical Exam Physical Exam: General: Resting comfortably HEENT: NC/AT; PERRLA with EOMI; [place] conjunctiva, MMM. No erythema of posterior pharynx Neck: Supple and nontender Cardiac: RRR Lungs: on room air; CTA Abdomen: No distention; Bowel normoactive X 4; Soft, non TTP. Extremities: Warm. +2 bilat LE edema noted. Neuro: No focal weakness Skin: No rash Results & Data Vital Signs (Past 12 Hours) Vital Signs Temp Pulse Pulse Resp BP Pulse Ox 01/22/19 07:47 62 01/22/19 07:13 36.5 C 65 24 119/65 96 01/22/19 04:15 36.3 C L 65 24 124/72 96 Laboratory Results 01/22/19 01/22/19 01/22/19 Range/Units 11:00 11:00 05:35 WBC (4.8-10.8) K/uL RBC (4.2-5.4) M/uL Hgb (12.0-16.0) g/dL Hct (37-47) % MCV (80-100) fL MCH (25-34) pg MCHC (32-36) g/dL RDW Std Deviation (36.4-46.3) fL RDW Coeff of Adan (11.5-14.5) % Plt Count (130-400) K/uL MPV (7.4-10.4) fL Sodium 142 (136-145) mmol/L Potassium 3.3 L (3.5-5.1) mmol/L Chloride 107 (98-107) mmol/L Carbon Dioxide 32 (21-32) mmol/L Anion Gap 3.0 (3-11) BUN 14 (7-18) mg/dl Creatinine 0.86 (0.6-1.2) mg/dl Est Cr Clr Drug Dosing 47.3 ml/min Est GFR ( Amer) 69.9 Est GFR (Non-Af Amer) 60.3 BUN/Creatinine Ratio 16.7 (10-20) Glucose 103 H (70-99) mg/dl Calcium 8.4 L (8.5-10.1) mg/dl Magnesium 1.8 (1.8-2.4) mg/dl Total Bilirubin 0.5 (0.2-1) mg/dl AST 10 L (15-37) U/L ALT 6 L (12-78) U/L Alkaline Phosphatase 36 L (45-117) U/L Total Protein 4.5 L (6.4-8.2) gm/dl Albumin 2.0 L (3.4-5.0) gm/dl Globulin 2.5 (2.5-4.0) gm/dl Albumin/Globulin Ratio 0.8 L (0.9-2) Peritoneal Color Peritoneal Appearance Peritoneal WBC (0-300) /ul Peritoneal RBC /uL Mononuclear WBCs % % Polynuclear WBCs % % Peritoneal Tot Protein g/dl Peritoneal Albumin g/dl Peritoneal LDH U/L Peritoneal Glucose mg/dl Peritoneal Triglycerid mg/dl Stool Occult Bld Scrn Negative (Negative) Stl C. diff Tox B Gene Pending 01/22/19 01/21/19 01/21/19 Range/Units 05:35 Unknown Unknown WBC 5.27 (4.8-10.8) K/uL RBC 2.72 L (4.2-5.4) M/uL Hgb 9.0 L (12.0-16.0) g/dL Hct 27.5 L (37-47) % MCV 101.1 H (80-100) fL MCH 33.1 (25-34) pg MCHC 32.7 (32-36) g/dL RDW Std Deviation 65.6 H (36.4-46.3) fL RDW Coeff of Adan 17.7 H (11.5-14.5) % Plt Count 178 (130-400) K/uL MPV 8.7 (7.4-10.4) fL Sodium (136-145) mmol/L Potassium (3.5-5.1) mmol/L Chloride (98-107) mmol/L Carbon Dioxide (21-32) mmol/L Anion Gap (3-11) BUN (7-18) mg/dl Creatinine (0.6-1.2) mg/dl Est Cr Clr Drug Dosing ml/min Est GFR ( Amer) Est GFR (Non-Af Amer) BUN/Creatinine Ratio (10-20) Glucose (70-99) mg/dl Calcium (8.5-10.1) mg/dl Magnesium (1.8-2.4) mg/dl Total Bilirubin (0.2-1) mg/dl AST (15-37) U/L ALT (12-78) U/L Alkaline Phosphatase (45-117) U/L Total Protein (6.4-8.2) gm/dl Albumin (3.4-5.0) gm/dl Globulin (2.5-4.0) gm/dl Albumin/Globulin Ratio (0.9-2) Peritoneal Color PALE YELLOW Peritoneal Appearance CLEAR Peritoneal WBC 344 H (0-300) /ul Peritoneal RBC < 3000 /uL Mononuclear WBCs % 63.4 % Polynuclear WBCs % 36.6 % Peritoneal Tot Protein 3.0 g/dl Peritoneal Albumin 1.5 g/dl Peritoneal LDH 127 U/L Peritoneal Glucose 112 mg/dl Peritoneal Triglycerid 12 mg/dl Stool Occult Bld Scrn (Negative) Stl C. diff Tox B Gene PG Care Time/CCT Total # of Minutes Spent Total Time Spent with Patient: Total time spent is greater than 50% in coordination of care (as documented) at patient's floor/unit and/or counseling patient:
[2019-01-22 14:16] LABS: Cdiff Antigen Positive
[2019-01-22 14:18] LABS: Cdiff Toxin A+B Positive Cdiff Toxin (Negative)
[2019-01-22] MEDS ORDERED: POTASSIUM CHLORIDE 20 MEQ TABCR PO ONE (15:00)
--- NOTE | 2019-01-22 15:48 | Progress Note ---
DATE: 01/22/2019 DIAGNOSES: 1. Hematemesis. 2. Large volume ascites. 3. Metastatic ovarian cancer. 4. Acute respiratory failure with hypoxia. 5. Hypoalbuminemia. 6. Lower extremity edema. SUBJECTIVE: Debra is a pleasant 88-year-old female patient of Dr. Gurrola's receiving treatment for metastatic ovarian cancer, admitted originally on 01/20/2019. I saw her yesterday, pre-paracentesis, according to Debra had several liters of fluid removed and per my recommendation has been receiving daily albumin as well. Her diet has been advanced and we will see how she tolerates it over the next [address] Gurrola has been informed of her admission and she seems to be making slow but steady progress towards discharge. Agree with current medical management. Nursing reports no overnight difficulties otherwise. OBJECTIVE: GENERAL: A very pleasant 88-year-old female patient, awake, alert and appropriate. VITAL SIGNS: Temperature 36.5, pulse 62, respiratory rate 24, blood pressure 119/65. SKIN: Without rash or lesion. HEENT: Oral mucosa without erythema or ulceration. NECK: Supple. Trachea midline. HEART: Regular rate and rhythm. LUNGS: Clear to auscultation bilaterally. ABDOMEN: Less distended, soft, nontender, no rigidity or guarding. EXTREMITIES: 2+ peripheral edema bilateral lower extremities. NEUROLOGIC: Grossly intact. LABORATORY DATA: WBC count 50-70, hemoglobin 9, platelet count 178,000. Sodium 142, potassium 3.3, chloride 107, carbon dioxide 32, BUN 14, creatinine 0.86, albumin 2. IMPRESSION: 1. Severe hypoalbuminemia. 2. Abdominal ascites. 3. Declining performance status. 4. Metastatic ovarian cancer. 5. Normocytic normochromic anemia. 6. Hypokalemia. 7. Hematemesis. 8. Acute respiratory failure with hypoxia. PLAN: In summary, again Debra is a very pleasant 88-year-old patient, currently under Dr. Gurrola's care for metastatic ovarian cancer. She has not had any definitive therapy in well over a month. Advised Dr. Gurrola of the patient's admission in the hospital. I am not sure which direction therapeutically he will go until Debra becomes medically stable. She seemed a bit brighter today, definitely less abdominal girth. She still has a fair amount of edema in her lower extremities; however. Would continue IV albumin for the next couple of days. Protonix drip should indeed calm down her gastric mucosa. From an oncologic standpoint, I have nothing further to add today. Dr. Gurrola will return to service on . I can be contacted by phone, specifically tomorrow if there are any issues.
[2019-01-22] MEDS: ALBUMIN 25% 50 ML IV SCH ×2 (20:19→20:55)
[2019-01-23] MEDS: HEPARIN 100 UNIT/ML 5ML FLUSH FLUSH PRN ×2 (05:35→15:24)
[2019-01-23 06:31] LABS: Hematocrit (blood only) 26.5 % (37-47); Hemoglobin 8.9 g/dL (12.0-16.0); Mean Corpuscular Hemoglobin 33.1 pg (25-34); Mean Corpuscular Hgb Conc 33.6 g/dL (32-36); Mean Corpuscular Volume 98.5 fL (80-100); Platelet Count 180 K/uL (130-400); RDW Coefficient of Variation 17.9 % (11.5-14.5); RDW Standard Deviation 64.7 fL (36.4-46.3); Red Blood Count 2.69 M/uL (4.2-5.4); White Blood Count 8.14 K/uL (4.8-10.8)
[2019-01-23 07:11] LABS: BUN Creatinine Ratio 15.2 (10-20); Calcium 8.1 mg/dl (8.5-10.1); Creatinine Clr Calc Pharmacy 42.3 ml/min; Est GFR (African American) 61.2; Est GFR (Non-African American) 52.8; Potassium 3.7 mmol/L (3.5-5.1)
[2019-01-23] MEDS: PANTOprazole 40 MG TAB PO SCH ×2 (09:26→21:11)
[2019-01-23] MEDS: DOCUSATE SODIUM/SENNA 50/8.6MG TAB PO SCH (09:27)
[2019-01-23] MEDS: POLYETHYLENE (MIRALAX) 17 GM PACK PO SCH (09:27)
[2019-01-23] MEDS ORDERED: DOCUSATE SODIUM/SENNA 50/8.6MG TAB PO PRN (14:17)
[2019-01-23] MEDS: ALBUMIN 25% 50 ML IV SCH ×2 (14:17→15:23)
--- NOTE | 2019-01-23 14:23 | Hospitalist Progress Note ---
Date of Service January 23, 2019 Assessment & Plan (1) Coffee ground emesis: - Presented with questionable coffee ground emesis versus dark brown liquid vomit; now resolved, was not likely related to upper GI bleed. - H/H has been stable. - CT A/P with no acute source of bleeding. - GI consulted, appreciate input. No indication for inpatient EGD, can consider outpatient EGD. - Tolerating regular diet. - PPI PO BID x 1 month then daily. (2) Ascites: - Large volume ascites noted on CT of A/P in setting of metastatic ovarian cancer - could be malignant effusion also noted to have possible cirrhosis on CT imaging. - S/p US guided paracentesis on 01/21 (both diagnostic and therapeutic) with removal of 6.5L fluid. Cultures negative to date, cytology pending. - Receiving Albumin IV daily (per onc recs). 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 - Monitor CBC daily. (4) Ovarian ca: - With peritoneal deposits and possible malignant ascites; Has a 9 cm heterogenous pelvic mass which is causing compression on the sigmoid colon. - Follows with Dr. Gurrola -- last chemotherapy in November 2018, further cycles have been held due to generalized weakness/deconditioning and recent PNA. - Oncology consulted; Dr. Gurrola will be covering next week. Will need to contact physician to discuss goals of care on Thu or -- her daughter Geraldine has also requested to speak with Dr. Gurrola following discussion. - May require palliative consult following discussion with Dr. Gurrola. (5) GERD (gastroesophageal reflux disease): - Protonix PO BID x 1 month then daily. (6) HTN (hypertension): - Not currently on anti-hypertensive. (7) Hiatal hernia: - Noted, followed as outpatient. - If this was not hematemesis, it could be vomiting induced by large hiatal hernia in the setting of large volume ascites increasing intra-abdominal pressure. (8) Prediabetes: - Hgb A1C was 7.5 in November 2017, has not been repeated since last study. - No indication for sliding scale. (9) C. difficile colitis: - Diagnosed at [facility], completed course of Flagyl. - C. diff toxin was positive -- likely from previous infection. - Stool is formed, no indication for treatment at this time. Pt. was also receiving bowel regimen as inpt due to constipation, may develop loose stools over next 48 hours as a result of meds. (10) PNA (pneumonia): - Admitted 11/2018 for right sided PNA -- completed course of Augmentin after discharge. - CXR was negative during this admission; mild hypoxia here was likely secondary to pleural effusions from hypoalbuminemia. (11) Acute respiratory failure with hypoxia: - Now weaned to room air; hypoxia was likely related to small bilat pleural effusions (in setting of hypoalbuminemia). -Received IV Albumin daily. - Encourage mobilization. - Diuresis prn. (12) Hypoalbuminemia: - Albumin is low in setting of malnutrition, ovarian cancer with recent hospitalizations, possible liver dysfunction with ?cirrhosis. - U/a negative for proteinuria. - Receiving IV Albumin daily. (13) Edema of lower extremity: - Likely secondary to increased pelvic pressure from ascites, hypoalbumin emia, ovarian cancer with large mass in the pelvis - Venous Doppler was negative for DVT bilaterally on 01/11; repeat doppler studies were also negative. - High risk for DVT -- bilat compression stockings. Holding pharmacologic ppx due to concern for recent bleed. - Edema improved with Lasix IV x 1 dose on 01/22, consider further doses q1-2 days if renal function remains stable. (14) DVT prophylaxis: - SCDs; holding Lovenox in setting of acute bleed. Dispo: Med/surg; Discharge to [facility] following insurance auth hopefully on Thursday; will also need to discuss treatment plan with Dr. Gurrola prior to discharge. Supervising Physician Co-Signing Physician Notes PA Supervision Note: I did not personally see or examine the patient today, but I verified all zuniga points of RADHA Lucero's assessment and plan with the following exceptions/additions: None Subjective Pt. is doing well -- LE edema improved after Lasix 40 mg IV x 1 dose. She states abd is soft, denies discomfort and increased bloating. Is having soft BMs - denies diarrhea. Will need to discuss goals of care with Dr. Gurrola this week. Review of Systems Review of Systems: All systems reviewed & are unremarkable except as noted in HPI & below Constitutional: no fever, no chills, no fatigue and no weakness Respiratory: no cough, no dyspnea, no dyspnea on exertion and no wheezing Cardiovascular: + edema; no chest pain and no palpitations Gastrointestinal: no abdominal pain, no nausea, no constipation and no diarrhea/loose stools Genitourinary: no difficulty urinating Musculoskeletal: no back pain and no joint pain Integumentary: no non-healing lesions Physical Exam Physical Exam: General: Resting comfortably HEENT: NC/AT; PERRLA with EOMI; [place] conjunctiva, MMM. No erythema of posterior pharynx Neck: Supple and nontender Cardiac: RRR Lungs: on room air; CTA throughout Abdomen: No distention; Bowel normoactive X 4; Soft, non TTP. Extremities: Warm. +1 bilat LE edema. Neuro: No focal weakness Skin: No rash Results & Data Vital Signs (Past 12 Hours) Vital Signs Temp Pulse Pulse Resp BP BP Pulse Ox 01/23/19 11:18 36.7 C 59 L 18 122/73 94 01/23/19 08:00 69 01/23/19 07:13 36.8 C 69 20 124/67 91 01/23/19 02:47 37.3 C 77 19 114/68 90 Laboratory Results 01/23/19 01/23/19 01/23/19 Range/Units 05:36 05:36 05:36 WBC 8.14 (4.8-10.8) K/uL RBC 2.69 L (4.2-5.4) M/uL Hgb 8.9 L (12.0-16.0) g/dL Hct 26.5 L (37-47) % MCV 98.5 (80-100) fL MCH 33.1 (25-34) pg MCHC 33.6 (32-36) g/dL RDW Std Deviation 64.7 H (36.4-46.3) fL RDW Coeff of Adan 17.9 H (11.5-14.5) % Plt Count 180 (130-400) K/uL MPV 9.0 (7.4-10.4) fL Sodium 140 (136-145) mmol/L Potassium 3.7 (3.5-5.1) mmol/L Chloride 105 (98-107) mmol/L Carbon Dioxide 31 (21-32) mmol/L Anion Gap 4.0 (3-11) BUN 15 (7-18) mg/dl Creatinine 0.96 (0.6-1.2) mg/dl Est Cr Clr Drug Dosing 42.3 ml/min Est GFR ( Amer) 61.2 Est GFR (Non-Af Amer) 52.8 BUN/Creatinine Ratio 15.2 (10-20) Glucose 109 H (70-99) mg/dl Calcium 8.1 L (8.5-10.1) mg/dl Vitamin B12 Pending Folate Pending Stl C.difficile Tox A&B (Negative) Crossmatch 01/22/19 01/20/19 Range/Units 11:00 06:41 WBC (4.8-10.8) K/uL RBC (4.2-5.4) M/uL Hgb (12.0-16.0) g/dL Hct (37-47) % MCV (80-100) fL MCH (25-34) pg MCHC (32-36) g/dL RDW Std Deviation (36.4-46.3) fL RDW Coeff of Adan (11.5-14.5) % Plt Count (130-400) K/uL MPV (7.4-10.4) fL Sodium (136-145) mmol/L Potassium (3.5-5.1) mmol/L Chloride (98-107) mmol/L Carbon Dioxide (21-32) mmol/L Anion Gap (3-11) BUN (7-18) mg/dl Creatinine (0.6-1.2) mg/dl Est Cr Clr Drug Dosing ml/min Est GFR ( Amer) Est GFR (Non-Af Amer) BUN/Creatinine Ratio (10-20) Glucose (70-99) mg/dl Calcium (8.5-10.1) mg/dl Vitamin B12 Folate Stl C.difficile Tox A&B Positive Cdiff Toxin A* (Negative) Crossmatch See Detail PG Care Time/CCT Total # of Minutes Spent Total Time Spent with Patient: Total time spent is greater than 50% in coordination of care (as documented) at patient's floor/unit and/or counseling patient:
[2019-01-23 14:48] LABS: Folate (Folic Acid) 9.06 ng/ml (>5.38)
[2019-01-24] MEDS: HEPARIN 100 UNIT/ML 5ML FLUSH FLUSH PRN (06:12)
[2019-01-24 06:30] LABS: Hematocrit (blood only) 27.8 % (37-47); Hemoglobin 9.2 g/dL (12.0-16.0); Mean Corpuscular Hemoglobin 33.1 pg (25-34); Mean Corpuscular Hgb Conc 33.1 g/dL (32-36); Mean Platelet Volume 9.4 fL (7.4-10.4); Platelet Count 171 K/uL (130-400); RDW Coefficient of Variation 17.3 % (11.5-14.5); RDW Standard Deviation 63.3 fL (36.4-46.3); Red Blood Count 2.78 M/uL (4.2-5.4); White Blood Count 5.97 K/uL (4.8-10.8)
[2019-01-24 07:03] LABS: Alanine Aminotransferase < 6 U/L (12-78); Albumin Level 2.1 gm/dl (3.4-5.0); Aspartate Aminotransferase 8 U/L (15-37); BUN Creatinine Ratio 16.1 (10-20); Blood Urea Nitrogen 16 mg/dl (7-18); Calcium 8.2 mg/dl (8.5-10.1); Carbon Dioxide 32 mmol/L (21-32); Chloride 106 mmol/L (98-107); Creatinine Clr Calc Pharmacy 45.1 ml/min; Est GFR (African American) 59.7; Est GFR (Non-African American) 51.5; Glucose 120 mg/dl (70-99); Potassium 3.5 mmol/L (3.5-5.1); Sodium 142 mmol/L (136-145)
[2019-01-24 07:06] LABS: Albumin Globulin Ratio 0.8 (0.9-2); Alkaline Phosphatase 47 U/L (45-117); Bilirubin,Total 0.6 mg/dl (0.2-1); Globulin 2.6 gm/dl (2.5-4.0); Total Protein 4.7 gm/dl (6.4-8.2)
[2019-01-24] MEDS: PANTOprazole 40 MG TAB PO SCH ×2 (08:11→20:41)
--- NOTE | 2019-01-24 12:01 | Hospitalist Progress Note ---
Date of Service January 24, 2019 Assessment & Plan (1) Coffee ground emesis: - Presented with questionable coffee ground emesis versus dark brown liquid vomit; now resolved, was not likely related to upper GI bleed. - H/H has been stable. - CT A/P with no acute source of bleeding. - GI consulted, appreciate input. No indication for inpatient EGD, can consider outpatient EGD. - Tolerating regular diet. - PPI PO BID x 1 month then daily. (2) Ascites: - Large volume ascites noted on CT of A/P in setting of metastatic ovarian cancer - could be malignant effusion also noted to have possible cirrhosis on CT imaging. - S/p US guided paracentesis on 01/21 (both diagnostic and therapeutic) with removal of 6.5L fluid. Cultures negative to date, cytology pending. - Received albumin per oncology recs - will hold off on further as patient's e madeline has improved and she reports her belly/ascites is not causing her any discomfort today. 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 - Monitor CBC daily. (4) Ovarian ca: - With peritoneal deposits and possible malignant ascites; Has a 9 cm heterogenous pelvic mass which is causing compression on the sigmoid colon. - Follows with Dr. Gurrola -- last chemotherapy in November 2018, further cycles have been held due to generalized weakness/deconditioning and recent PNA. - Oncology consulted; Dr. Gurrola will discuss care goals with the patient when he comes back on to service this week. - May require palliative consult following discussion with Dr. Gurrola. (5) GERD (gastroesophageal reflux disease): - Protonix PO BID x 1 month then daily. (6) HTN (hypertension): - Not currently on anti-hypertensive. (7) Hiatal hernia: - Noted, followed as outpatient. - If this was not hematemesis, it could be vomiting induced by large hiatal hernia in the setting of large volume ascites increasing intra-abdominal pressure. (8) Prediabetes: - Hgb A1C was 7.5 in November 2017, has not been repeated since last study. - No indication for sliding scale. (9) C. difficile colitis: - Diagnosed at [facility], completed course of Flagyl. - C. diff toxin was positive -- likely from previous infection. - Stool is formed, no indication for treatment at this time. Pt. was also receiving bowel regimen as inpt due to constipation, may develop loose stools over next 48 hours as a result of meds. (10) PNA (pneumonia): - Admitted 11/2018 for right sided PNA -- completed course of Augmentin after discharge. - CXR was negative during this admission; mild hypoxia here was likely secondary to pleural effusions from hypoalbuminemia. (11) Acute respiratory failure with hypoxia: - Now weaned to room air; hypoxia was likely related to small bilat pleural effusions (in setting of hypoalbuminemia). -Received IV Albumin daily 01/20 - 01/23. - Encourage mobilization. - Diuresis prn. (12) Hypoalbuminemia: - Albumin is low in setting of malnutrition, ovarian cancer with recent hospitalizations, possible liver dysfunction with ?cirrhosis. - U/a negative for proteinuria. 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 - High risk for DVT -- bilat compression stockings. Holding pharmacologic ppx due to concern for recent bleed. - Edema improved with Lasix IV x 1 dose on 01/22 (14) DVT prophylaxis: - SCDs; holding Lovenox in setting of acute bleed. Dispo: Med/surg; Discharge to [facility] following insurance auth hopefully on Thursday; will also need to discuss treatment plan with Dr. Gurrola prior to discharge. Subjective Ms. Tse is accompanied by her niece at bedsided. She is up to a chair, feeling better but not at her baseline yet. Review of Systems Review of Systems: All systems reviewed & are unremarkable except as noted in HPI & below Physical Exam Physical Exam: General: no distress Eyes: normal inspection, PERLL Respiratory: chest non tender, clear to auscultation, normal breath sounds, no respiratory distress, no accessory muscle use Cardiac: regular rate and rhythm, no rub or gallop, no murmur, trace pitting edema bilateral LE , no jvd GI/: active bowel sounds, no abd pain or tenderness, soft, distended Extremities: normal range of motion, normal strength, non tender Neuro/Psych: alert and oriented x 3, normal mood and affect Skin: normal color, dry Results & Data Vital Signs (Past 12 Hours) Vital Signs Temp Pulse Pulse Resp BP Pulse Ox 01/24/19 08:00 70 01/24/19 07:30 36.8 C 67 18 135/76 94 01/24/19 03:32 36.8 C 82 18 139/73 92 PG Care Time/CCT Total # of Minutes Spent Total Time Spent with Patient: Total time spent is greater than 50% in coordination of care (as documented) at patient's floor/unit and/or counseling patient:
[2019-01-25] MEDS: HEPARIN 100 UNIT/ML 5ML FLUSH FLUSH PRN (05:59)
[2019-01-25 06:54] LABS: Alanine Aminotransferase < 6 U/L (12-78); Albumin Level 1.9 gm/dl (3.4-5.0); Aspartate Aminotransferase 10 U/L (15-37); BUN Creatinine Ratio 17.8 (10-20); Blood Urea Nitrogen 18 mg/dl (7-18); Carbon Dioxide 30 mmol/L (21-32); Chloride 106 mmol/L (98-107); Creatinine Clr Calc Pharmacy 43.3 ml/min; Est GFR (African American) 56.9; Est GFR (Non-African American) 49.1; Glucose 110 mg/dl (70-99); Potassium 3.4 mmol/L (3.5-5.1); Sodium 142 mmol/L (136-145)
[2019-01-25 06:55] LABS: Albumin Globulin Ratio 0.7 (0.9-2); Alkaline Phosphatase 42 U/L (45-117); Bilirubin,Total 0.4 mg/dl (0.2-1); Globulin 2.6 gm/dl (2.5-4.0); Total Protein 4.5 gm/dl (6.4-8.2)
[2019-01-25] MEDS: PANTOprazole 40 MG TAB PO SCH ×2 (07:59→20:37)
[2019-01-25] MEDS ORDERED: POTASSIUM CHLORIDE 20 MEQ TABCR PO STA (08:00)
[2019-01-25] MEDS: FUROSEMIDE 20 MG TAB PO SCH (09:00)
--- NOTE | 2019-01-25 13:14 | Hospitalist Progress Note ---
Date of Service January 25, 2019 Assessment & Plan (1) Coffee ground emesis: - Presented with questionable coffee ground emesis versus dark brown liquid vomit; now resolved, was not likely related to upper GI bleed. - H/H has been stable. - CT A/P with no acute source of bleeding. - GI consulted, appreciate input. No indication for inpatient EGD, can consider outpatient EGD. - Tolerating regular diet. - PPI PO BID x 1 month then daily. (2) Ascites: - Large volume ascites noted on CT of A/P in setting of metastatic ovarian cancer - could be malignant effusion also noted to have possible cirrhosis on CT imaging. - S/p US guided paracentesis on 01/21 (both diagnostic and therapeutic) with removal of 6.5L fluid. Cultures negative to date, cytology pending. - Received albumin per oncology recs - will hold off on further as patient's e madeline has improved and she reports her belly/ascites is not causing her any discomfort today. 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 - Monitor CBC daily. (4) Ovarian ca: - With peritoneal deposits and possible malignant ascites; Has a 9 cm heterogenous pelvic mass which is causing compression on the sigmoid colon. - Follows with Dr. Gurrola -- last chemotherapy in November 2018, further cycles have been held due to generalized weakness/deconditioning and recent PNA. - Oncology consulted; Dr. Gurrola will discuss care goals with the patient when he comes back on to service this week. - Palliative care consulted (5) GERD (gastroesophageal reflux disease): - Protonix PO BID x 1 month then daily. (6) HTN (hypertension): - Not currently on anti-hypertensive. (7) Hiatal hernia: - Noted, followed as outpatient. - If this was not hematemesis, it could be vomiting induced by large hiatal hernia in the setting of large volume ascites increasing intra-abdominal pressure. (8) Prediabetes: - Hgb A1C was 7.5 in November 2017, has not been repeated since last study. - No indication for sliding scale. (9) C. difficile colitis: - Diagnosed at [facility], completed course of Flagyl. - C. diff toxin was positive -- likely from previous infection. - Stool is formed about 2 stools per day, no indication for treatment at this time. (10) PNA (pneumonia): - Admitted 11/2018 for right sided PNA -- completed course of Augmentin after discharge. - CXR was negative during this admission; mild hypoxia here was likely secondary to pleural effusions from hypoalbuminemia. (11) Acute respiratory failure with hypoxia: - Now weaned to room air; hypoxia was likely related to small bilat pleural effusions (in setting of hypoalbuminemia). -Received IV Albumin daily 01/20 - 01/23. - Encourage mobilization. (12) Hypoalbuminemia: - Albumin is low in setting of malnutrition, ovarian cancer with recent hospitalizations, possible liver dysfunction with ?cirrhosis. - U/a negative for proteinuria. - will add Boost and commercial real estate appraiser consult (13) Edema of lower extremity: - Likely secondary to increased pelvic pressure from ascites, hypoalbuminemia, ovarian cancer with large mass in the pelvis - Venous Doppler was negative for DVT bilaterally on 01/11; repeat doppler studies were also negative. - High risk for DVT -- bilat compression stockings. Holding pharmacologic ppx due to concern for recent bleed. - Edema improved with Lasix IV x 1 dose on 01/22 - will start po furosemide 20 mg daily (14) DVT prophylaxis: - SCDs; holding Lovenox in setting of acute bleed. Dispo: Discharge to [facility] following insurance auth Subjective Ms. Tse has no complaints today. Reports feeling her edema is improving Review of Systems Review of Systems: All systems reviewed & are unremarkable except as noted in HPI & below Physical Exam Physical Exam: General: no distress Eyes: normal inspection, PERLL Respiratory: chest non tender, clear to auscultation, normal breath sounds, no respiratory distress, no accessory muscle use Cardiac: regular rate and rhythm, no rub or gallop, no murmur, trace lower extremity edema GI/: active bowel sounds, no abd pain or tenderness, soft, distended Extremities: normal range of motion, normal strength, non tender Neuro/Psych: alert and oriented x 3, normal mood and affect Skin: normal color, dry Results & Data Vital Signs (Past 12 Hours) Vital Signs Temp Pulse Resp BP BP Pulse Ox 01/25/19 11:36 36.8 C 70 18 113/65 94 01/25/19 06:58 36.8 C 69 18 131/67 92 01/25/19 03:00 36.8 C 69 20 128/65 93 PG Care Time/CCT Total # of Minutes Spent Total Time Spent with Patient: Total time spent is greater than 50% in coordination of care (as documented) at patient's floor/unit and/or counseling patient:
--- NOTE | 2019-01-25 14:59 | Palliative Care Consultation ---
Date of Consultation January 25, 2019 Assessment & Plan (1) Goals of care, counseling/discussion: -88 year old female patient with PMH ovarian cancer, anemia, hypertension, presented with complaints of abdominal fullness and vomiting and possible hematemesis. This is patient's second admission recently, she was just here with pneumonia and was diagnosed with C. difficile at [facility] following that admission. She returns now also with complaints of abdominal fullness, early satiety and anorexia. She was found to have large amount of ascites and severe hypoalbuminemia. She underwent paracentesis when she had 6.5L fluid removed. Patient's performance status is declining, and it is uncertain if she will be able to resume her salvage chemotherapy which she has now not had in over a month. Palliative care is consulted to discuss goals of care. -Met with patient in room 288-2. She is AA&O x4. She denies any complaints at this time other weakness. -Patient states that her goal is to go to rehab, try and get stronger, improve nutritional status in hopes to continue her chemotherapy. However, patient also stated, "But I don't know if that's going to be possible. I don't know until I try." -Patient states she is not ready to and not ready for hospice care yet. She was willing to discuss it, but very easily became overwhelmed. She is upset that she will not be able to care for herself any more and likely will need long-term care. -We discussed her medical condition including the ovarian cancer, ascites and hypoalbuminemia. She has limited insight into complex medical condition. She gave me permission to speak with her niece, Geraldine. -Called Geraldine and asked if okay to discuss patient's condition and prognosis over the phone. Geraldine lives in [place], so was eager to discuss. Geraldine states that she knows patient is likely declining and we could be moving towards hospice/ comfort care. Geraldine's mother was on hospice and had a wonderful experience, so she is open to this idea in the future for her aunt as well. -Plan is for patient to go to [facility] for "rehab." Will use that time to determine whether or not she is going to improve, or if not, if she will need to transition to comfort/hospice care. Geraldine plans on calling patient to discuss goals of care. -Patient declined completing a POLST form at this time. (2) Hypoalbuminemia: (3) Ascites: (4) Ovarian ca: (5) C. difficile colitis: History of Present Illness Reason for Consultation: Goals of care Requesting Physician: JOE Ron Attending Physician: Terrell Riddle MD History of Present Illness This 88 year old female patient with PMH ovarian cancer, anemia, hypertension, presented with complaints of abdominal fullness and vomiting and possible hematemesis. This is patient's second admission recently, she was just here with pneumonia and was diagnosed with C. difficile at [facility] following that admission. She returns now also with complaints of abdominal fullness, early satiety and anorexia. She was found to have large amount of ascites and severe hypoalbuminemia. She underwent paracentesis when she had 6.5L fluid removed. Patient's performance status is declining, and it is uncertain if she will be able to resume her salvage chemotherapy which she has now not had in over a month. Palliative care is consulted to discuss goals of care. Thank you kindly for this consult. Palliative care team will follow as needed. Allergies Allergy/AdvReac Type Severity Reaction Status Date / Time No Known Allergies Allergy Verified 01/20/19 06:38 Home Medications Home Medications Medication Instructions Recorded Confirmed Type ascorbic acid (vitamin C) [Vitamin 500 mg PO DAILY 12/14/18 01/20/19 History C] cholecalciferol (vitamin D3) 1,000 unit PO DAILY 12/14/18 01/20/19 History [Vitamin D3] pantoprazole 40 mg PO QAM 12/14/18 01/20/19 History acetaminophen [Tylenol] 325 mg PO QID PRN 12/24/18 01/20/19 History Patient History Medical History Ovarian ca (Chronic) Anemia (Acute) Arthritis (Acute) Gout (Acute) History of hysterectomy (Acute) tumors removed from uterine area Acid reflux Ankle fracture HTN (hypertension) Hiatal hernia Low hemoglobin Ovarian cancer Prediabetes Surgical History No pertinent past surgical history Family History Other No significant family history Social History Preferred Language: French Communication Ability: Effective Documentation Billing Clerk Required: No Beliefs That Will Affect Care: None Current Living Situation: Alone Other Information That Helps Us Care for You: No Feels Safe at Home: Yes Safety Concerns: Feels Safe At This Time Smoking Status: Never smoker Hx Alcohol Use: No Hx Substance Use: No Review of Systems Constitutional: + weakness Respiratory: no cough and no dyspnea Cardiovascular: + edema Gastrointestinal: + abdominal pain; no nausea and no vomiting Neurologic: no confusion Psychiatric: + anxiety Physical Exam Constitutional: no acute distress Respiratory: normal respiratory effort, lungs clear to auscultation Cardiovascular: Rate/Rhythm: regular rate and regular rhythm Extremities: + edema (+2 BLE) Gastrointestinal (Abdomen): Inspection/Auscultation: + abdomen distended (slightly, soft) and normal bowel sounds Percussion/Palpation: + abdomen tender (mildly) Neurologic: moves all extremities and awake; not confused Psychiatric: Orientation: alert and oriented x 3 Insight: + limited insight Results & Data Vital Signs (Past 12 Hours) Vital Signs Temp Pulse Resp BP BP Pulse Ox 01/25/19 11:36 36.8 C 70 18 113/65 94 01/25/19 06:58 36.8 C 69 18 131/67 92 01/25/19 03:00 36.8 C 69 20 128/65 93 Time Spent Midlevel 70 minutes with >50% of the time spent at bedside with patient and on phone with family discussing condition and GOC.
--- NOTE | 2019-01-25 17:06 | Hematology/Oncology Prog Note ---
Date of Service January 25, 2019 Assessment & Plan (1) Ascites: She did well with the paracentesis and is more comfortable. Her anasarca is related to a low protein state. This issue will continue to recur until she can build up her nutrition. I am concerned that this may be difficult for her. I would hold off on further supplemental albumin, as it is only a temporary solution. She may need to go out on a low dose of a diuretic, though we will need to be careful that she does not become dehydrated. There is a possibility this is related to cancer, though her most recent scans, from last admission, showed stable disease. Cancer also would not explain her pedal edema. Present on Admission?: Yes (2) Ovarian cancer: Her disease was stable on scans late last month. She is not healthy enough for chemotherapy right now. However, if she can get a bit stronger in rehab, we may be able to reapproach this issue. As discussed during her last stay, her series of infections this summer was a very large setback and her body is having a difficult time recovering. I will arrange for her to come back to my office in a few weeks to discuss treatment again. Present on Admission?: Yes Subjective Ms. Tse is looking well. She felt much better after her large volume paracentesis. She is eating a bit better and is much more comfortable. She is still weak physically and is awaiting placement Review of Systems Constitutional: + fatigue and + weakness (generalized) Respiratory: no cough and no dyspnea Cardiovascular: + edema; no chest pain Gastrointestinal: + bloating (much improved); no abdominal pain and no nausea Musculoskeletal: no back pain Integumentary: no rash Neurologic: no dizziness and no headache(s) Physical Exam Constitutional: + ill appearing (chronically) and comfortable; no acute distress Eyes: + anicteric sclerae and EOM intact bilaterally ENMT: external ear and nose normal, oropharynx normal Respiratory: normal respiratory effort, lungs clear to auscultation Cardiovascular: RRR, no murmur, no edema Gastrointestinal (Abdomen): Inspection/Auscultation: normal bowel sounds; abdomen not distended Percussion/Palpation: abdomen soft; abdomen nontender Skin: no rashes, warm and dry Psychiatric: A+Ox3, euthymic affect Results & Data Vital Signs (Past 12 Hours) Vital Signs Temp Pulse Resp BP BP Pulse Ox 01/25/19 15:15 36.8 C 68 18 128/75 94 01/25/19 11:36 36.8 C 70 18 113/65 94 01/25/19 06:58 36.8 C 69 18 131/67 92 Laboratory Results Laboratory Tests 01/24/19 01/25/19 06:17 06:03 WBC 5.97 Hgb 9.2 L Plt Count 171 Creatinine 1.02 Albumin 1.9 L (1) Ovarian cancer Laterality: unspecified laterality Qualified Code(s): C56.9 - Malignant neoplasm of unspecified ovary
[2019-01-26] MEDS: HEPARIN 100 UNIT/ML 5ML FLUSH FLUSH PRN (05:35)
[2019-01-26 06:08] LABS: Basophils # (auto) 0.01 K/uL (0-0.2); Basophils % (auto) 0.1 %; Eosinophils # (auto) 0.23 K/uL (0-0.5); Eosinophils % (auto) 3.3 %; Hematocrit (blood only) 27.7 % (37-47); Hemoglobin 9.2 g/dL (12.0-16.0); Immature Granulocytes # (auto) 0.02 K/uL (0.00-0.02); Immature Granulocytes % (auto) 0.3 %; Lymphocytes # (auto) 1.12 K/uL (1.2-3.4); Lymphocytes % (auto) 15.9 %; Mean Corpuscular Hemoglobin 32.7 pg (25-34); Mean Corpuscular Hgb Conc 33.2 g/dL (32-36); Mean Corpuscular Volume 98.6 fL (80-100); Mean Platelet Volume 9.6 fL (7.4-10.4); Monocytes # (auto) 0.87 K/uL (0.11-0.59); Monocytes % (auto) 12.4 %; Neutrophils # (auto) 4.79 K/uL (1.4-6.5); Platelet Count 164 K/uL (130-400); RDW Coefficient of Variation 16.9 % (11.5-14.5); RDW Standard Deviation 61.6 fL (36.4-46.3); Red Blood Count 2.81 M/uL (4.2-5.4); White Blood Count 7.04 K/uL (4.8-10.8)
[2019-01-26 06:43] LABS: BUN Creatinine Ratio 20.6 (10-20); Calcium 7.8 mg/dl (8.5-10.1); Creatinine Clr Calc Pharmacy 41.5 ml/min; Est GFR (African American) 59.7; Est GFR (Non-African American) 51.5; Potassium 3.6 mmol/L (3.5-5.1)
[2019-01-26] MEDS: PANTOprazole 40 MG TAB PO SCH ×2 (07:53→20:28)
[2019-01-26] MEDS: FUROSEMIDE 20 MG TAB PO SCH (07:54)
--- NOTE | 2019-01-26 11:09 | Palliative Care Progress Note ---
Date of Service January 26, 2019 Assessment & Plan (1) Goals of care, counseling/discussion: -Patient is feeling a little better today, more energy. sitting up in chair during my visit. -Patient recalls all of our conversation yesterday. Has no further questions at this time. I did let patient know that I spoke with her niece Geraldine yesterday about everything. She was appreciative. -Plan is for patient to go to [facility] for rehab. Will use that time to determine whether or not she is going to improve, or if not, if she will need to transition to comfort/hospice care. -Patient declined completing a POLST form at this time. -Palliative care will sign off at this time, but please reconsult us with any further needs. (2) Hypoalbuminemia: (3) Ascites: (4) Ovarian ca: (5) C. difficile colitis: Subjective Patient is sitting up in chair. Recalls all of our conversation yesterday. She denies any complaints. Review of Systems Review of Systems: + weakness no cough and no dyspnea + edema + abdominal pain; no nausea and no vomiting no confusion + anxiety Physical Exam Constitutional: no acute distress Respiratory: normal respiratory effort, lungs clear to auscultation Cardiovascular: Rate/Rhythm: regular rate and regular rhythm Extremities: + edema (+2 BLE) Gastrointestinal (Abdomen): Inspection/Auscultation: + abdomen distended (slightly, soft) and normal bowel sounds Percussion/Palpation: + abdomen tender (mildly) Neurologic: moves all extremities and awake; not confused Psychiatric: Orientation: alert and oriented x 3 Insight: + limited insight Results & Data Vital Signs (Past 12 Hours) Vital Signs Temp Pulse Pulse Resp BP Pulse Ox 01/26/19 06:59 36.7 C 69 18 132/72 91 01/26/19 03:06 37.1 C 69 18 137/76 91 01/26/19 02:04 72 01/25/19 23:10 36.9 C 75 18 147/75 H 92 Time Spent Midlevel 25 minutes with >50% of the time spent at bedside with patient discussing condition and GOC.
--- NOTE | 2019-01-26 14:26 | Hospitalist Progress Note ---
Date of Service January 26, 2019 Assessment & Plan (1) Coffee ground emesis: - Presented with questionable coffee ground emesis versus dark brown liquid vomit; now resolved, was not likely related to upper GI bleed. - H/H has been stable. - CT A/P with no acute source of bleeding. - GI consulted, appreciate input. No indication for inpatient EGD, can consider outpatient EGD. - Tolerating regular diet. - PPI PO BID x 1 month then daily. (2) Ascites: - Large volume ascites noted on CT of A/P in setting of metastatic ovarian cancer - could be malignant effusion also noted to have possible cirrhosis on CT imaging. - S/p US guided paracentesis on 01/21 (both diagnostic and therapeutic) with removal of 6.5L fluid. Cultures negative to date, cytology pending. - Received albumin per oncology recs - will hold off on further as patient's e madeline has improved and she reports her belly/ascites is not causing her any discomfort today. Further this is a chronic nutritional issue, dietary consulted. 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 - Monitor CBC daily. (4) Ovarian ca: - With peritoneal deposits and possible malignant ascites; Has a 9 cm heterogenous pelvic mass which is causing compression on the sigmoid colon. - Follows with Dr. Gurrola -- last chemotherapy in November 2018, further cycles have been held due to generalized weakness/deconditioning and recent PNA. - Oncology consulted - Palliative care consulted (5) GERD (gastroesophageal reflux disease): - Protonix PO BID x 1 month then daily. (6) HTN (hypertension): - Not currently on anti-hypertensive. (7) Hiatal hernia: - Noted, followed as outpatient. - If this was not hematemesis, it could be vomiting induced by large hiatal hernia in the setting of large volume ascites increasing intra-abdominal pressure. (8) Prediabetes: - Hgb A1C was 7.5 in November 2017, has not been repeated since last study. - No indication for sliding scale. (9) C. difficile colitis: - Diagnosed at [facility], completed course of Flagyl. - C. diff toxin was positive -- likely from previous infection. - Stool is formed about 2 stools per day, no indication for treatment at this time. (10) PNA (pneumonia): - Admitted 11/2018 for right sided PNA -- completed course of Augmentin after discharge. - CXR was negative during this admission; mild hypoxia here was likely secondary to pleural effusions from hypoalbuminemia. (11) Acute respiratory failure with hypoxia: - Now weaned to room air; hypoxia was likely related to small bilat pleural effusions (in setting of hypoalbuminemia). -Received IV Albumin daily 01/20 - 01/23. - Encourage mobilization. (12) Hypoalbuminemia: - Albumin is low in setting of malnutrition, ovarian cancer with recent hospitalizations, possible liver dysfunction with ?cirrhosis. - U/a negative for proteinuria. - will add Boost and missileman consult (13) Edema of lower extremity: - Likely secondary to increased pelvic pressure from ascites, hypo albuminemia, ovarian cancer with large mass in the pelvis - Venous Doppler was negative for DVT bilaterally on 01/11; repeat doppler studies were also negative. - High risk for DVT -- bilat compression stockings. Will start heparin subq as patient is now a week out from possible hematemesis - Edema improved with Lasix IV x 1 dose on 01/22 - initiated po furosemide 20 mg daily (14) DVT prophylaxis: - SCDs; heparin bid Dispo: Discharge to [facility] following insurance auth Subjective Ms. Tse is tired after therapy but otherwise has no complaints. Review of Systems Review of Systems: All systems reviewed & are unremarkable except as noted in HPI & below Physical Exam Physical Exam: General: no distress Eyes: normal inspection, PERLL Respiratory: chest non tender, clear to auscultation, normal breath sounds, no respiratory distress, no accessory muscle use Cardiac: regular rate and rhythm, no rub or gallop, no murmur, no edema, no jvd GI/: active bowel sounds, no abd pain or tenderness, soft, distended Extremities: normal range of motion, normal strength, non tender Neuro/Psych: alert and oriented x 3, normal mood and affect Skin: normal color, dry Results & Data Vital Signs (Past 12 Hours) Vital Signs Temp Pulse Resp BP Pulse Ox 01/26/19 11:34 36.7 C 75 20 128/68 87 L 01/26/19 06:59 36.7 C 69 18 132/72 91 01/26/19 03:06 37.1 C 69 18 137/76 91 PG Care Time/CCT Total # of Minutes Spent Total Time Spent with Patient: Total time spent is greater than 50% in coordination of care (as documented) at patient's floor/unit and/or counseling patient:
[2019-01-26] MEDS: HEPARIN SOD 5,000 UNIT/0.5 ML VIAL SQ SCH (20:29)
[2019-01-27] MEDS: HEPARIN 100 UNIT/ML 5ML FLUSH FLUSH PRN (05:50)
[2019-01-27 06:02] LABS: Basophils # (auto) 0.01 K/uL (0-0.2); Basophils % (auto) 0.1 %; Eosinophils # (auto) 0.13 K/uL (0-0.5); Eosinophils % (auto) 1.3 %; Hematocrit (blood only) 28.1 % (37-47); Hemoglobin 9.5 g/dL (12.0-16.0); Immature Granulocytes # (auto) 0.03 K/uL (0.00-0.02); Immature Granulocytes % (auto) 0.3 %; Lymphocytes # (auto) 1.43 K/uL (1.2-3.4); Lymphocytes % (auto) 14.2 %; Mean Corpuscular Hemoglobin 33.1 pg (25-34); Mean Corpuscular Hgb Conc 33.8 g/dL (32-36); Mean Corpuscular Volume 97.9 fL (80-100); Mean Platelet Volume 9.5 fL (7.4-10.4); Monocytes # (auto) 1.17 K/uL (0.11-0.59); Monocytes % (auto) 11.6 %; Neutrophils # (auto) 7.28 K/uL (1.4-6.5); Neutrophils % (auto) 72.5 %; Platelet Count 156 K/uL (130-400); RDW Coefficient of Variation 17.3 % (11.5-14.5); RDW Standard Deviation 62.2 fL (36.4-46.3); Red Blood Count 2.87 M/uL (4.2-5.4); White Blood Count 10.05 K/uL (4.8-10.8)
[2019-01-27 06:23] LABS: BUN Creatinine Ratio 22.5 (10-20); Calcium 7.9 mg/dl (8.5-10.1); Creatinine Clr Calc Pharmacy 44.9 ml/min; Est GFR (African American) 59.7; Est GFR (Non-African American) 51.5; Potassium 3.5 mmol/L (3.5-5.1)
[2019-01-27] MEDS: FUROSEMIDE 20 MG TAB PO SCH (09:06)
[2019-01-27] MEDS: HEPARIN SOD 5,000 UNIT/0.5 ML VIAL SQ SCH (09:06)
[2019-01-27] MEDS: PANTOprazole 40 MG TAB PO SCH (09:06)
--- NOTE | 2019-01-27 11:13 | Discharge Summary ---
Date of Service January 27, 2019 Admission HPI Per Admitting Provider Mrs. Tse is an 88-year old white female with past medical history of ovarian cancer, anemia, hypertension who presented with complaints of abdominal fullness and vomiting. She states that last evening she had a bout of dark brown emesis x 3. Pt. went back to bed and awoke around 5am with a coughing spell followed by another bout of similarly colored emesis. She is not having what she would describe as pain in her abdomen, but a fullness which has led her to have decreased appetite. Adds that she has some increased swelling of her lower extremities. Denies any recent fevers or chills, shortness of breath, melena or hematochezia. Denies any history of gastric or duodenal ulcers, or history of inflammatory bowel, however the patient states she has never had a colonoscopy, EGD, or followed with a trimmer buffing wheel. The patient states she has not had a bowel movement in several days despite a daily regimen of miralax and senna. Recent history of note, the patient was treated for pneumonia over a week ago (Augmentin, last dose taken yesterday morning). Prior to that admission she had been diagnosed with C. diff at [facility] and treated with a course of oral metronidazole. The patient is receiving chemotherapy for her ovarian cancer, however she states she has not had any treatment since November due to her recent illness. Principal Diagnosis Vomiting, ascites Discharge Exam Constitutional WD/WN, vitals as above Respiratory normal respiratory effort, lungs clear to auscultation Cardiovascular RRR, no murmur, no edema Gastrointestinal (Abdomen) Inspection/Auscultation: + abdomen distended and normal bowel sounds Percussion/Palpation: abdomen soft; abdomen nontender Musculoskeletal no cyanosis or clubbing, extremities motor strength 5/5 Skin no rashes, warm and dry Neurologic moves all extremities and awake Psychiatric A+Ox3, euthymic affect Discharge Data Allergies Allergy/AdvReac Type Severity Reaction Status Date / Time No Known Allergies Allergy Verified 01/20/19 06:38 Consultations 01/20/19 08:47 ED Decision to Admit Stat 01/20/19 09:27 Consult Oncology Routine 01/20/19 10:01 Consult Gastroenterology Routine 01/20/19 11:02 Consult Case Management - Discharge Planning Routine 01/25/19 08:31 Consult Palliative Care Routine Ordered Studies 01/20/19 06:29 CT abd pelvis IV con only Stat 01/20/19 18:39 US venous doppler LE BI Urgent 01/21/19 08:00 US paracentesis abd w/image Routine Hospital Course (1) Coffee ground emesis: - Presented with questionable coffee ground emesis versus dark brown liquid vomit; now resolved, was not likely related to upper GI bleed. - H/H has been stable. - CT A/P with no acute source of bleeding. - GI consulted, appreciate input. No indication for inpatient EGD, can consider outpatient EGD. - Tolerating regular diet. - PPI PO BID x 1 month then daily. (2) Ascites: - Large volume ascites noted on CT of A/P in setting of metastatic ovarian cancer - pathology showing malignant ascites consistent with metastatic ovarian cancer. Also with possible cirrhosis on imaging - S/p US guided paracentesis on 01/21 (both diagnostic and therapeutic) with removal of 6.5L fluid. Cultures negative - Received albumin per oncology recs - will hold off on further as patient's edema has improved and she reports her belly/ascites is not causing her current discomfort. Further this is a chronic nutritional issue, dietary consulted. 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 - Monitor CBC daily. (4) Ovarian ca: - With peritoneal deposits and malignant ascites; Has a 9 cm heterogenous pelvic mass which is causing compression on the sigmoid colon. - Follows with Dr. Gurrola -- last chemotherapy in November 2018, further cycles have been held due to generalized weakness/deconditioning and recent PNA. - Oncology consulted - Palliative care consulted (5) GERD (gastroesophageal reflux disease): - Protonix PO BID x 1 month then daily. (6) HTN (hypertension): - Not currently on anti-hypertensive. (7) Hiatal hernia: - Noted, followed as outpatient. - If this was not hematemesis, it could be vomiting induced by large hiatal hernia in the setting of large volume ascites increasing intra-abdominal pressure. (8) Prediabetes: - Hgb A1C was 7.5 in November 2017, has not been repeated since last study. - No indication for sliding scale. (9) C. difficile colitis: - Diagnosed at [facility], completed course of Flagyl. - C. diff toxin was positive -- likely from previous infection. - Stool is formed about 2 stools per day,no leukocytosis, afebrile - no indication for treatment at this time. (10) PNA (pneumonia): - Admitted 11/2018 for right sided PNA -- completed course of Augmentin after discharge. - CXR was negative during this admission; mild hypoxia here was likely secondary to pleural effusions from hypoalbuminemia. (11) Acute respiratory failure with hypoxia: - Now weaned to room air; hypoxia was likely related to small bilat pleural effusions (in setting of hypoalbuminemia). -Received IV Albumin daily 01/20 - 01/23. - Encourage mobilization. - daily furosemide 20 mg initiated (12) Hypoalbuminemia: - Albumin is low in setting of malnutrition, ovarian cancer with recent hospitalizations, possible liver dysfunction with ?cirrhosis. - U/a negative for proteinuria. - will add Boost and locomotive firer/fireman consult (13) Edema of lower extremity: - Likely secondary to increased pelvic pressure from ascites, hypoalbuminemia, ovarian cancer with large mass in the pelvis - Venous Doppler was negative for DVT bilaterally on 01/11; repeat doppler studies were also negative. - High risk for DVT -- bilat compression stockings. Will start heparin subq as patient is now a week out from possible hematemesis - Edema improved with Lasix IV x 1 dose on 01/22 - initiated po furosemide 20 mg daily (14) DVT prophylaxis: - SCDs; heparin bid Dispo: Discharge to [facility] Total Time Total Time Spent Total Time Spent (In Minutes): greater than 30 minutes Discharge Plan Discharge Items Patient Disposition: Transfer Inpatient Rehab Fac Reason For Visit: UPPER GI BLEED Discharge Diagnosis: Vomiting, ascites Discharge Goals: Decrease discomfort Activity: Resume your previous activity Non-emergency contact: Primary Care Provider Call non-emergency contact if: you have any medication questions and your symptoms worsen Follow-up/Referrals: Osvaldo Sosa MD [Primary Care Provider] - Diet: Regular Addtl Provider Instructions: Please increase your pantoprazole to twice a day for the next month and then you can decrease back to monthly Please continue drinking Boost GC twice a day to increase your protein Prescriptions: New sennosides-docusate sodium [Senokot-S] 8.6-50 mg Tablet 1 tab PO BID PRN (Reason: constipation) Qty: 30 RF: 0 furosemide 20 mg Tablet 20 mg PO QAM Qty: 30 RF: 0 Continued ascorbic acid (vitamin C) [Vitamin C] 500 mg Tablet,Chewable 500 mg PO DAILY RF: 0 cholecalciferol (vitamin D3) [Vitamin D3] 1,000 unit Capsule 1,000 unit PO DAILY RF: 0 acetaminophen [Tylenol] 325 mg Tablet 325 mg PO QID PRN (Reason: Pain) RF: 0 Changed pantoprazole 40 mg tablet,delayed release (DR/EC) 40 mg PO BID Qty: 0 RF: 0 Stand-Alone Forms: Discharge [facility], [facility] Discharge Orders: Discharge Order (Routine); Ordered 01/27/19 Ordered By: Jenifer Vera Skilled Items Patient informed of condition?: Yes DNR: No Discharge Level of Care: Acute rehab Communicable Disease: Yes Discharge Prognosis: Stable Admission Data Admit Date/Time: 01/20/19 09:26 Attending Provider: Terrell Riddle Admit Provider: Nia Hua Primary Care Provider: Osvaldo Sosa Other Providers: Jose De Jesus Borges ; Mason Ma V ; Terrell Riddle Service: Telemetry Medical
[2019-01-27 11:51] VITALS: TEMP 97.9; O2SAT 93
[2019-01-27 11:59] VITALS: BP 121/58; PULSE 77
== END 2019-01-27 14:57 | DRG 378 ==
LOC: ED 06:08 → 2N 09:26 → SUATTDRO 09:26 → 2N 10:24